=== PATIENT | female | born 1980 | race Caucasian/White ===

== ENCOUNTER → 2016-06-25 | Outpatient (REF) | payer OTHER ==
[~2016-06-25] MED LIST: DICL10TA PO; FERR325T3 PO; IBUP80TA PO; PERCOCET PO
== END ==
LOC: M LAB REF 10:43
PROVIDERS: ATTEND Physician Assistant
DX: J02.9 Acute pharyngitis, unspecified (principal)

== ENCOUNTER 2016-09-27 17:18 | Emergency (ER) | payer OTHER ==
[~2016-09-27] VITALS: Ht 157.5 cm; Wt 59.1 kg
--- NOTE | 2016-09-27 19:10 | REPUSA ---
CLINICAL HISTORY: pain. COMMENTS: Real time sonography with duplex doppler of the left lower extremity was performed with attention to the major deep venous structures. Evaluation reveals the left common femoral, superficial femoral and popliteal veins to be completely compressible without intraluminal thrombus. There is normal spontaneous phasic flow and augmentation. The greater saphenous/common femoral vein junction is patent. IMPRESSION: No evidence of DVT in left lower extremity.. Thank you for your kind referral of this patient.
[2016-09-27 19:21] VITALS: BP 123/82
== END 2016-09-27 19:38 | disposition home or self-care (01) ==
LOC: M ED 17:18
DX: M79.662 Pain in left lower leg (principal); F41.9 Anxiety disorder, unspecified; F17.200 Nicotine dependence, unspecified, uncomplicated; Z88.1 Allergy status to other antibiotic agents

== ENCOUNTER 2017-01-11 08:22 | Emergency (ER) | payer OTHER ==
[~2017-01-11] VITALS: Ht 157.5 cm; Wt 61.4 kg
[2017-01-11 11:20] LABS: BASO % 0.4 % (0.0-1.0); EOS # 0.1 10^3/uL (0.0-0.50); IMMATURE GRANULOCYTE % 0.4 % (0-0); LYMPH # 1.7 10^3/uL (1.5-4.5); LYMPH % 16.3 % (24.0-44.0); MEAN CORPUSCULAR HEMOGLOBIN 31.6 pg (27.0-33.0); MEAN CORPUSCULAR VOLUME 92.9 fl (80.0-96.0); MONO # 0.3 10^3/uL (0.0-0.8); MONO % 3.1 % (0.0-5.0); NEUTROPHILS # 8.4 10^3/uL (1.8-7.7); NEUTROPHILS % 78.8 % (36.0-66.0); PLATELET COUNT, AUTOMATED 301 10^3/uL (150-450); RED CELL DISTRIBUTION WIDTH 12.7 % (11.5-14.5); WHITE BLOOD COUNT 10.7 10^3/uL (4.0-10.0)
[2017-01-11 11:48] LABS: CONTROL LINE HCG INT CTR LINE PRESENT
[2017-01-11 11:59] LABS: ALBUMIN 3.8 GM/DL (3.2-5.2); ALBUMIN/GLOBULIN RATIO 1.09 (1.00-1.93); ALKALINE PHOSPHATASE 54 U/L (45-117); ALT/SGPT 15 U/L (12-78); ANION GAP 5 MEQ/L (8-16); AST/SGOT 12 U/L (7-37); BILIRUBIN,DIRECT 0.1 MG/DL (0.0-0.2); BILIRUBIN,TOTAL 0.4 MG/DL (0.2-1.0); BLOOD UREA NITROGEN 14 MG/DL (7-18); CALCIUM LEVEL 8.8 MG/DL (8.5-10.1); CARBON DIOXIDE LEVEL 27 MEQ/L (21-32); CHLORIDE LEVEL 109 MEQ/L (98-107); CREATININE FOR GFR 0.92 MG/DL (0.55-1.02); GLOMERULAR FILTRATION RATE > 60.0 (>60); GLUCOSE, FASTING 89 MG/DL (70-105); POTASSIUM SERUM 4.1 MEQ/L (3.5-5.1); SODIUM LEVEL 141 MEQ/L (136-145); T UPTAKE 33 % (30-39); TOTAL PROTEIN 7.3 GM/DL (6.4-8.2)
[2017-01-11 12:04] LABS: THYROXINE (T4) 9.4 UG/DL (4.5-12.0)
[2017-01-11 12:29] VITALS: BP 113/66
--- NOTE | 2017-01-12 05:40 | ECGEPIP ---
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
== END 2017-01-11 12:30 | disposition home or self-care (01) ==
LOC: M ED 08:22
DX: J20.9 Acute bronchitis, unspecified (principal); Z72.0 Tobacco use

== ENCOUNTER → 2017-04-22 | Outpatient (CLI) | payer OTHER ==
[~2017-04-22] MED LIST changes: -DICL10TA PO; -FERR325T3 PO; -IBUP80TA PO; +ISOVUE-370 76% 100ML VIAL (Q9967) As Ordered; -PERCOCET PO
== END ==
LOC: M RAD 15:01
DX: R91.8 Other nonspecific abnormal finding of lung field (principal)
CPT/HCPCS: Q9967

== ENCOUNTER → 2017-06-22 | Outpatient (CLI) | payer OTHER ==
[~2017-06-22] MED LIST changes: -ISOVUE-370 76% 100ML VIAL (Q9967) As Ordered; +METHACHOLINE KIT (J7674) INH
== END ==
LOC: M CARPUL 13:22
DX: R06.02 Shortness of breath (principal)
CPT/HCPCS: J7674

== ENCOUNTER 2017-10-24 07:58 | Emergency (ER) | payer OTHER ==
[2017-10-24 09:37] LABS: BASO % 0.6 % (0.0-1.0); EOS # 0.2 10^3/uL (0.0-0.50); EOS % 3.5 % (0.0-3.0); HEMATOCRIT 40.1 % (36.0-47.0); HEMOGLOBIN 13.7 g/dl (12.0-15.5); IMMATURE GRANULOCYTE % 0.4 % (0-3.0); LYMPH # 1.4 10^3/uL (1.5-4.5); LYMPH % 26.6 % (24.0-44.0); MEAN CORPUSCULAR HEMOGLOBIN 32.2 pg (27.0-33.0); MEAN CORPUSCULAR HGB CONC 34.2 g/dl (32.0-36.5); MEAN CORPUSCULAR VOLUME 94.4 fl (80.0-96.0); MONO # 0.3 10^3/uL (0.0-0.8); MONO % 5.6 % (0.0-5.0); NEUTROPHILS # 3.4 10^3/uL (1.8-7.7); NEUTROPHILS % 63.3 % (36.0-66.0); PLATELET COUNT, AUTOMATED 245 10^3/uL (150-450); RED BLOOD COUNT 4.25 10^6/uL (4.00-5.40); RED CELL DISTRIBUTION WIDTH 12.2 % (11.5-14.5); WHITE BLOOD COUNT 5.4 10^3/uL (4.0-10.0)
[2017-10-24 10:01] LABS: ANION GAP 5 MEQ/L (8-16); BLOOD UREA NITROGEN 13 MG/DL (7-18); CALCIUM LEVEL 8.5 MG/DL (8.5-10.1); CARBON DIOXIDE LEVEL 27 MEQ/L (21-32); CHLORIDE LEVEL 111 MEQ/L (98-107); CPK CREATINE PHOSPHOKINASE 40 U/L (26-192); CREATININE FOR GFR 0.98 MG/DL (0.55-1.30); GLOMERULAR FILTRATION RATE > 60.0 (>60); GLUCOSE, FASTING 91 MG/DL (70-100); SODIUM LEVEL 143 MEQ/L (136-145); TROPONIN I < 0.02 NG/ML (< 0.10)
[2017-10-24 10:07] LABS: CK-MB VALUE MASS 1.3 NG/ML (<3.6); HCG, SERUM QUANTITATIVE < 1.0 MIU/ML; MB/CK RELATIVE INDEX 3.25 (< OR =4); THYROID STIMULATING HORMONE 0.901 uIU/ML (0.358-3.740)
[2017-10-24 10:23] LABS: D-DIMER QUANT < 270.0 ng/ml (<500)
== END 2017-10-24 11:31 | disposition home or self-care (01) ==
LOC: M ED 07:58
DX: R07.9 Chest pain, unspecified (principal)
CPT/HCPCS: 71046

== ENCOUNTER 2017-11-05 14:01 | Emergency (ER) | payer OTHER ==
[2017-11-05 14:50] LABS: BASO # 0.1 10^3/uL (0.0-0.2); BASO % 0.7 % (0.0-1.0); EOS # 0.3 10^3/uL (0.0-0.50); EOS % 3.6 % (0.0-3.0); HEMATOCRIT 41.5 % (36.0-47.0); IMMATURE GRANULOCYTE % 0.6 % (0-3.0); LYMPH # 2.1 10^3/uL (1.5-4.5); LYMPH % 28.9 % (24.0-44.0); MEAN CORPUSCULAR HGB CONC 33.7 g/dl (32.0-36.5); MONO # 0.4 10^3/uL (0.0-0.8); MONO % 4.9 % (0.0-5.0); NEUTROPHILS # 4.4 10^3/uL (1.8-7.7); NEUTROPHILS % 61.3 % (36.0-66.0); PLATELET COUNT, AUTOMATED 258 10^3/uL (150-450); RED BLOOD COUNT 4.37 10^6/uL (4.00-5.40); RED CELL DISTRIBUTION WIDTH 12.6 % (11.5-14.5); WHITE BLOOD COUNT 7.2 10^3/uL (4.0-10.0)
[2017-11-05 14:59] LABS: ANION GAP 5 MEQ/L (8-16); BLOOD UREA NITROGEN 13 MG/DL (7-18); CALCIUM LEVEL 8.6 MG/DL (8.5-10.1); CARBON DIOXIDE LEVEL 26 MEQ/L (21-32); CHLORIDE LEVEL 109 MEQ/L (98-107); CPK CREATINE PHOSPHOKINASE 52 U/L (26-192); CREATININE FOR GFR 0.95 MG/DL (0.55-1.30); GLOMERULAR FILTRATION RATE > 60.0 (>60); GLUCOSE, FASTING 113 MG/DL (70-100); MB/CK RELATIVE INDEX 2.31 (< OR =4); POTASSIUM SERUM 3.8 MEQ/L (3.5-5.1); SODIUM LEVEL 140 MEQ/L (136-145); TROPONIN I < 0.02 NG/ML (< 0.10)
[2017-11-05] MEDS ORDERED: ISOVUE-370 76% 100ML VIAL (Q9967) As Ordered (15:14)
[2017-11-05 15:26] LABS: C REACTIVE PROTEIN QUANTITATIV < 0.30 MG/DL (0.00-0.30)
[2017-11-05 15:49] LABS: ERYTHROCYTE SEDIMENTATION RATE 2 mm/hr (0-20)
[2017-11-05] MEDS: KETOROLAC 30 MG/ML VIAL (J1885) IV (17:45)
== END 2017-11-05 17:55 | disposition home or self-care (01) ==
LOC: M ED 14:01
DX: R07.89 Other chest pain (principal); R00.0 Tachycardia, unspecified; I49.3 Ventricular premature depolarization; J45.909 Unspecified asthma, uncomplicated; Z88.1 Allergy status to other antibiotic agents; F17.200 Nicotine dependence, unspecified, uncomplicated; Z91.013 Allergy to seafood; Z79.899 Other long term (current) drug therapy; Z79.2 Long term (current) use of antibiotics; Z79.51 Long term (current) use of inhaled steroids
CPT/HCPCS: Q9967

== ENCOUNTER → 2018-03-17 | Outpatient (CLI) | payer OTHER ==
[~2018-03-17] MED LIST changes: +AMOX875T; +ARNU1INH; +DICL10TA PO; +FERR325T3 PO; +IBUP-1114 PO; +IBUP80TA PO; -METHACHOLINE KIT (J7674) INH; +PERCOCET PO; +VENTAER
--- NOTE | 2018-03-17 15:16 | REP ---
FLAT AND UPRIGHT, PA CHEST, THREE VIEWS: HISTORY: Pain. COMPARISON: 11/05/2017 Air is present in small and large intestine. There are no air fluid levels or dilated loops of intestine. There is no pneumoperitoneum. A calcified granuloma is present in the left lung. The right lung is clear. IMPRESSION: Nonspecific bowel gas pattern. Electronically Signed by Reagan Franks MD 03/17/2018 03:18 P
== END ==
LOC: M WUC 11:47
PROVIDERS: ATTEND Internal Medicine
DX: J98.4 Other disorders of lung (principal); R07.89 Other chest pain; R10.9 Unspecified abdominal pain

== ENCOUNTER → 2018-04-14 | Outpatient (CLI) | payer OTHER ==
--- NOTE | 2018-04-14 11:01 | REP ---
LEFT LOWER EXTREMITY DOPPLER VENOUS ULTRASOUND: 04/14/2018. Clinical history: Pain left lower leg, evaluate for DVT. Comparison: 11/05/2017. Technique: The deep venous system of the left lower extremity is evaluated with villeda scale imaging, compression ultrasound, color imaging and duplex Doppler interrogation. Examination from the groin through the popliteal fossa into the proximal calf. Findings: There is full compressibility from the common femoral vein in the inguinal region through the popliteal vein. Color imaging confirms patency throughout the course of the deep venous system. There is respiratory variation and augmented flow at all levels. Impression: 1. No Doppler venous ultrasound evidence of DVT in the left lower extremity. Electronically Signed by Amaury Ferrari MD 04/14/2018 10:52 A
== END ==
LOC: M RAD 10:09
PROVIDERS: ATTEND Physician Assistant
DX: M79.662 Pain in left lower leg (principal)

== ENCOUNTER → 2018-09-01 | Outpatient (REF) | payer OTHER ==
[~2018-09-01] MED LIST changes: +BUSP10TA
[2018-09-01 13:27] LABS: BASO % 0.6 % (0.0-1.0); EOS # 0.2 10^3/uL (0.0-0.50); EOS % 3.6 % (0.0-3.0); HEMATOCRIT 44.8 % (36.0-47.0); HEMOGLOBIN 14.9 g/dl (12.0-15.5); LYMPH # 1.6 10^3/uL (1.5-4.5); LYMPH % 24.4 % (24.0-44.0); MEAN CORPUSCULAR HEMOGLOBIN 31.2 pg (27.0-33.0); MEAN CORPUSCULAR HGB CONC 33.3 g/dl (32.0-36.5); MEAN CORPUSCULAR VOLUME 93.9 fl (80.0-96.0); MONO # 0.4 10^3/uL (0.0-0.8); MONO % 5.9 % (0.0-5.0); NEUTROPHILS # 4.3 10^3/uL (1.8-7.7); NEUTROPHILS % 65.2 % (36.0-66.0); PLATELET COUNT, AUTOMATED 280 10^3/uL (150-450); RED BLOOD COUNT 4.77 10^6/uL (4.00-5.40); WHITE BLOOD COUNT 6.6 10^3/uL (4.0-10.0)
[2018-09-01 13:47] LABS: ALBUMIN 4.3 GM/DL (3.2-5.2); BILIRUBIN,TOTAL 0.4 MG/DL (0.2-1.0); CALCIUM LEVEL 9.2 MG/DL (8.5-10.1); CREATININE FOR GFR 1.13 MG/DL (0.55-1.30); FREE T4 0.98 NG/DL (0.76-1.46); GLOMERULAR FILTRATION RATE 56.8 (>58); POTASSIUM SERUM 4.3 MEQ/L (3.5-5.1); THYROID STIMULATING HORMONE 1.15 uIU/ML (0.358-3.740); TOTAL PROTEIN 7.4 GM/DL (6.4-8.2)
[2018-09-03 00:07] LABS: EBV AB TO NUCLEAR ANTIGEN 22.4 U/mL (0.0-17.9); EBV VIRAL CAPSID AG IgG >600.0 U/mL (0.0-17.9); EBV VIRAL CAPSID AG IgM <36.0 U/mL (0.0-35.9)
== END ==
LOC: M LAB REF 12:22
PROVIDERS: ATTEND Physician Assistant
DX: J02.9 Acute pharyngitis, unspecified (principal); R53.83 Other fatigue

== ENCOUNTER 2018-11-23 14:02 | Emergency (ER) | payer OTHER ==
[~2018-11-23] VITALS: Ht 157.5 cm; Wt 63.6 kg
[~2018-11-23 14:02] MED LIST changes: -BUSP10TA
[2018-11-23] MEDS ORDERED: BUSP10TA (14:11)
--- NOTE | 2018-11-23 17:35 | REP ---
Chest x-ray: Two views. History: "DB". Comparison chest x-ray March 17, 2018 and November 05, 2017. Findings: There is a stable granulomatous calcification in the left mid lung zone. No infiltrate is seen. Pleural angles are sharp. Heart size is normal. EKG electrodes are seen. Nipple silhouettes project at the bases bilaterally. There is a 6 mm nodular opacity projecting in the left lung apex which is not definitely apparent previously. I cannot exclude a pulmonary nodule. Exam is otherwise unremarkable. Impression: 6 mm nodular neodensity left lung apex, question pulmonary nodule. Old granuloma left mid lung field. Otherwise no active disease. Electronically Signed by Jose Pollack MD 11/24/2018 08:00 A
[2018-11-23 17:49] LABS: BASO % 0.5 % (0.0-1.0); EOS # 0.2 10^3/uL (0.0-0.5); EOS % 2.3 % (0.0-3.0); HEMATOCRIT 38.5 % (36.0-47.0); HEMOGLOBIN 13.1 g/dl (12.0-15.5); MEAN CORPUSCULAR HEMOGLOBIN 32.3 pg (27.0-33.0); MEAN CORPUSCULAR VOLUME 95.1 fl (80.0-96.0); MONO # 0.6 10^3/uL (0.0-0.8); MONO % 7.7 % (0.0-5.0); NEUTROPHILS # 4.5 10^3/uL (1.5-8.5); NEUTROPHILS % 61.2 % (36.0-66.0); PLATELET COUNT, AUTOMATED 230 10^3/uL (150-450); RED BLOOD COUNT 4.05 10^6/uL (4.00-5.40); WHITE BLOOD COUNT 7.3 10^3/uL (4.0-10.0)
[2018-11-23 18:11] LABS: BLOOD UREA NITROGEN 13 MG/DL (7-18); CALCIUM LEVEL 8.6 MG/DL (8.5-10.1); CARBON DIOXIDE LEVEL 25 MEQ/L (21-32); CHLORIDE LEVEL 110 MEQ/L (98-107); CK-MB VALUE MASS 1.1 NG/ML (<3.6); CPK CREATINE PHOSPHOKINASE 42 U/L (26-192); CREATININE FOR GFR 1.02 MG/DL (0.55-1.30); GLOMERULAR FILTRATION RATE > 60.0 (>58); GLUCOSE, FASTING 105 MG/DL (70-100); MB/CK RELATIVE INDEX 2.62 (< OR =4); POTASSIUM SERUM 3.8 MEQ/L (3.5-5.1); SODIUM LEVEL 142 MEQ/L (136-145); TROPONIN I < 0.02 NG/ML (< 0.10)
[2018-11-23 18:34] LABS: HCG, SERUM QUALITATIVE NEGATIVE (NEGATIVE)
[2018-11-23 20:00] VITALS: BP 12/80
--- NOTE | 2018-11-23 20:48 | ECGEPIP ---
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
== END 2018-11-23 20:10 | disposition home or self-care (01) ==
LOC: M ED 14:02
DX: J45.901 Unspecified asthma with (acute) exacerbation (principal); R91.8 Other nonspecific abnormal finding of lung field; R94.31 Abnormal electrocardiogram [ECG] [EKG]; Z88.1 Allergy status to other antibiotic agents; Z91.013 Allergy to seafood; Z79.51 Long term (current) use of inhaled steroids; Z79.899 Other long term (current) drug therapy

== ENCOUNTER 2019-05-06 13:26 | Emergency (ER) | payer OTHER ==
[~2019-05-06] VITALS: Ht 157.5 cm; Wt 63.0 kg
[~2019-05-06 13:26] MED LIST changes: +BUSP10TA
[2019-05-06] MEDS ORDERED: ALPRAZolam 0.5 MG TAB PO ONE (14:45)
[2019-05-06 15:02] LABS: BASO % 0.4 % (0.0-1.0); EOS # 0.1 10^3/uL (0.0-0.5); EOS % 1.7 % (0.0-3.0); HEMATOCRIT 41.4 % (36.0-47.0); HEMOGLOBIN 14.1 g/dl (12.0-15.5); LYMPH % 13.3 % (24.0-44.0); MEAN CORPUSCULAR HEMOGLOBIN 31.3 pg (27.0-33.0); MEAN CORPUSCULAR HGB CONC 34.1 g/dl (32.0-36.5); MEAN CORPUSCULAR VOLUME 91.8 fl (80.0-96.0); MONO # 0.7 10^3/uL (0.0-0.8); MONO % 9.1 % (0.0-5.0); NEUTROPHILS # 5.6 10^3/uL (1.5-8.5); NEUTROPHILS % 75.1 % (36.0-66.0); PLATELET COUNT, AUTOMATED 250 10^3/uL (150-450); RED BLOOD COUNT 4.51 10^6/uL (4.00-5.40); WHITE BLOOD COUNT 7.5 10^3/uL (4.0-10.0)
[2019-05-06] MEDS ORDERED: ONDANSETRON 4 MG ORAL DISINTEGRATING TAB (Q0162 PER 1MG) PO ONE (15:15)
[2019-05-06 15:25] LABS: HCG, SERUM QUALITATIVE NEGATIVE (NEGATIVE)
[2019-05-06 15:33] LABS: ALBUMIN 3.6 GM/DL (3.2-5.2); ALT/SGPT 12 U/L (12-78); BILIRUBIN,DIRECT < 0.1 MG/DL (0.0-0.2); BILIRUBIN,TOTAL 0.3 MG/DL (0.2-1.0); BLOOD UREA NITROGEN 10 MG/DL (7-18); CALCIUM LEVEL 8.5 MG/DL (8.5-10.1); CARBON DIOXIDE LEVEL 24 MEQ/L (21-32); CHLORIDE LEVEL 110 MEQ/L (98-107); CK-MB VALUE MASS < 1.0 NG/ML (<3.6); CPK CREATINE PHOSPHOKINASE 42 U/L (26-192); GLOMERULAR FILTRATION RATE 58.6 (>58); GLUCOSE, FASTING 94 MG/DL (70-100); LIPASE 94 U/L (73-393); MB/CK RELATIVE INDEX 2.38 (< OR =4); SODIUM LEVEL 141 MEQ/L (136-145); THYROID STIMULATING HORMONE 0.511 uIU/ML (0.358-3.740); TOTAL PROTEIN 6.8 GM/DL (6.4-8.2); TROPONIN I < 0.02 NG/ML (< 0.10)
[2019-05-06] MEDS ORDERED: XANA0.5T PO (17:25)
[2019-05-06] MEDS ORDERED: FLON1SPR NARES (17:25)
--- NOTE | 2019-05-06 17:30 | ECGEPIP ---
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
[2019-05-06 17:53] VITALS: BP 105/59
--- NOTE | 2019-05-07 11:01 | REP ---
REASON: Chest pain. COMPARISON: 11/23/2018 TWO-VIEW CHEST: FINDINGS: The superior mediastinal structures are midline. The cardiac silhouette is unremarkable in size, shape, and position. The diaphragmatic surfaces of the lungs are regular, and the costophrenic angles are clear. The pulmonary morales are clear. The imaged osseous structures are intact. IMPRESSION: There is no acute cardiopulmonary disease. No change from the prior exam. There is an incidental calcified granuloma in the left lung. Electronically Signed by Arcadio Becerra DO 05/07/2019 12:19 P
== END 2019-05-06 17:56 | disposition home or self-care (01) ==
LOC: M ED 13:26
DX: H65.01 Acute serous otitis media, right ear (principal); F43.0 Acute stress reaction; R91.8 Other nonspecific abnormal finding of lung field; R11.2 Nausea with vomiting, unspecified; F17.210 Nicotine dependence, cigarettes, uncomplicated; Z88.1 Allergy status to other antibiotic agents; Z91.013 Allergy to seafood; Z79.51 Long term (current) use of inhaled steroids; Z79.899 Other long term (current) drug therapy
CPT/HCPCS: 36415; 71046; 80048; 80076; 82550; 82553; 83690; 84443; 84484; 84703; 85025; 93005; 99284; Q0162

== ENCOUNTER 2019-12-24 07:50 | Emergency (ER) | payer OTHER ==
[~2019-12-24] VITALS: Ht 157.5 cm; Wt 63.3 kg
[~2019-12-24 07:50] MED LIST changes: +FLON1SPR NARES; +XANA0.5T PO
[2019-12-24] MEDS ORDERED: GI COCKTAIL 50ML BTL(HYOSCYAMINE/MAALOX/LIDOCAINE VISCOUS)(1:3:1) PO ONE (08:15)
[2019-12-24 08:19] LABS: BASO # 0.1 10^3/uL (0.0-0.2); BASO % 0.6 % (0.0-1.0); EOS # 0.3 10^3/uL (0.0-0.5); EOS % 3.3 % (0.0-3.0); HEMATOCRIT 43.9 % (36.0-47.0); LYMPH % 25.1 % (24.0-44.0); MEAN CORPUSCULAR HEMOGLOBIN 30.2 pg (27.0-33.0); MEAN CORPUSCULAR HGB CONC 31.9 g/dl (32.0-36.5); MEAN CORPUSCULAR VOLUME 94.6 fl (80.0-96.0); MONO # 0.4 10^3/uL (0.0-0.8); MONO % 5.5 % (0.0-5.0); NEUTROPHILS # 5.1 10^3/uL (1.5-8.5); NEUTROPHILS % 65.1 % (36.0-66.0); PLATELET COUNT, AUTOMATED 296 10^3/uL (150-450); RED BLOOD COUNT 4.64 10^6/uL (4.00-5.40); WHITE BLOOD COUNT 7.8 10^3/uL (4.0-10.0)
[2019-12-24 08:31] LABS: INR 1.02; PROTHROMBIN TIME 13.6 SECONDS (12.5-14.3)
[2019-12-24 08:32] LABS: PARTIAL THROMBOPLASTIN TIME 27.9 SECONDS (24.2-38.5)
[2019-12-24 08:36] LABS: D-DIMER QUANT < 270 ng/ml (<500)
[2019-12-24 08:40] LABS: HCG, SERUM QUALITATIVE NEGATIVE (NEGATIVE)
[2019-12-24 08:49] LABS: ALT/SGPT 15 U/L (12-78); BILIRUBIN,DIRECT 0.1 MG/DL (0.0-0.2); BILIRUBIN,TOTAL 0.5 MG/DL (0.2-1.0); BLOOD UREA NITROGEN 12 MG/DL (7-18); CALCIUM LEVEL 8.8 MG/DL (8.5-10.1); CARBON DIOXIDE LEVEL 27 MEQ/L (21-32); CHLORIDE LEVEL 109 MEQ/L (98-107); CREATININE FOR GFR 1.11 MG/DL (0.55-1.30); FREE T4 0.96 NG/DL (0.76-1.46); GLOMERULAR FILTRATION RATE 57.7 (>58); GLUCOSE, FASTING 96 MG/DL (70-100); LIPASE 129 U/L (73-393); NT-PRO BNP 84 PG/ML (<125); POTASSIUM SERUM 3.9 MEQ/L (3.5-5.1); SODIUM LEVEL 141 MEQ/L (136-145); TOTAL PROTEIN 7.2 GM/DL (6.4-8.2)
--- NOTE | 2019-12-24 09:15 | REP ---
INDICATION: CHEST PAIN. COMPARISON: Comparison chest x-ray May 06, 2019.. TECHNIQUE: Portable AP sitting radiograph. FINDINGS: Monitoring electrodes overlie the chest. The lungs are well inflated and clear. The pleural angles are sharp. Heart size is normal. There is a granulomatous calcification again noted projecting in the left mid lung field. No significant bony abnormality is seen. IMPRESSION: No active disease. Old granuloma on the left. <Electronically signed by Bashir Pollack > 12/24/19 0914
[2019-12-24] MEDS ORDERED: KETOROLAC 30 MG/ML 1ML VIAL IV ONE (09:45)
[2019-12-24] MEDS ORDERED: SUCRALFATE 1 GM TAB PO ONE (09:45)
[2019-12-24] MEDS ORDERED: PRIL20TA2 PO (11:25)
[2019-12-24] MEDS ORDERED: SUCR1TA PO (11:25)
[2019-12-24 11:30] VITALS: BP 111/57
--- NOTE | 2019-12-25 07:39 | ECGEPIP ---
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
--- NOTE | 2019-12-25 07:47 | ECGEPIP ---
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
== END 2019-12-24 11:39 | disposition home or self-care (01) ==
LOC: M ED 07:50
DX: R07.89 Other chest pain (principal); K21.9 Gastro-esophageal reflux disease without esophagitis; R94.31 Abnormal electrocardiogram [ECG] [EKG]; J45.909 Unspecified asthma, uncomplicated; Z88.1 Allergy status to other antibiotic agents; Z91.013 Allergy to seafood; F17.200 Nicotine dependence, unspecified, uncomplicated; Z79.899 Other long term (current) drug therapy
CPT/HCPCS: 71045; 80048; 80076; 83690; 83880; 84439; 84443; 84484; 84703; 85025; 85379; 85610; 85730; 93005; 93041; 94760; 96374; 99285; J1885

== ENCOUNTER → 2020-03-26 | Outpatient (REF) | payer OTHER ==
[~2020-03-26] MED LIST changes: +PRIL20TA2 PO; +SUCR1TA PO
== END ==
LOC: M LAB REF 17:24
PROVIDERS: ATTEND Physician Assistant
DX: D23.4 Other benign neoplasm of skin of scalp and neck (principal)

== ENCOUNTER 2020-04-12 11:20 | Emergency (ER) | payer OTHER ==
[~2020-04-12] VITALS: Ht 157.5 cm; Wt 54.5 kg
--- OUTSIDE RECORDS SUMMARY | 2020-04-12 11:26 | CCD ---
Continuity of Care Document (CCD) Created on: 03/13/2020 Emily Blank External Reference #: [id number] : 1980 Sex: Female Author Author Emily PAYNE MD Organization Unknown Address [address] [address] Phone [phone] Care Team Providers Care Junior Electrical Engineer Name Role Phone Duke Jean-Baptiste M.D. AUTM [phone] Carlos A Villa AUTM [phone] AUTM Unavailable Problems Active Problems Provider Date Dyspnea Edvin Saab MD Onset: 02/07/2015 Social History Type Date Description Comments Sex Unknown ETOH Use Denies alcohol use Tobacco Use Start: 02/22/99 Patient is a current smoker, smo kes every day 1/2 ppd Recreational Drug Use Denies Drug Use Smoking Status Reviewed: 03/13/20 Patient is a current smoker, smokes every day 1/2 ppd Allergies, Adverse Reactions, Alerts Active Allergies Reaction Severity Comments Date Shellfish-Derived Products Anaphylaxis 1 04/10/2014 Tetracycline Urticaria 02/07/2015 Medications Active Medications SIG Qnty Indications Ordering Provide r Date Xopenex HFA 45mcg/Act Aerosol 2 puffs four times a day as needed 45gm J45.30 Edvin Saab MD 2018 Arnuity Ellipta 100mcg/Act Aerosol 1 puff every day 90units Edvin Saab MD 06/30/2017 Buspirone HCL 15mg Tablets 1 by mouth twice a day Unknown Omeprazole 20mg Capsules DR 1 by mouth every day Unknown Levalbuterol HCL 0.63mg/3ML Nebuli zer 1 vial nebulized three times a day as needed Unkno wn Immunizations CPT Code Status Date Vaccine Lot # [id number] Given 12/21/2019 Afluria, Quadrivalent, 0.5ml , [facility]# [id number] Vital Signs Date Vital Result Comment 03/13/2020 9:33am Height 61 inches 5'1" Weight 135.00 lb BMI (Body Mass Index) 25.5 kg/m2 [place] Body Weight 105 lb Weight 61.236 kg BSA (Body Surface Area) 1.60 m2 01/30/2020 12:45pm BP Systolic 104 mmHg BP Diastolic 82 mmHg Heart Rate 78 /min O2 % BldC Oximetry 98 % Height 61 inches 5'1" Weight 142.00 lb BMI (Body Mass Index) 26.8 kg/m2 [place] Body Weight 105 lb Weight 64.411 kg BSA (Body Surface Area) 1.63 m2 Results Test Acquired Date Facility Test Result H/L Range Note FVL/Felice 01/30/2020 [facility] SEE IMAGE FVC-Pred 3.33 L FVC-Pre 3.94 L FVC-%Pred-Pre 118 L FVC-LLN 2.69 L Fev1-Pred 2.72 L Fev1-Pre 3.11 L Fev1-%Pred-Pre 114 L Fev1-LLN 2.19 L Fev6-Pred 3.27 L Fev6-Pre 3.94 L Fev6-%Pred-Pre 120 L Fev6-LLN 2.65 L Gqt9rta-Qhox 82 % Qkz8hbc-Axe 79 % Sic9kbk-%Pred-Pre 96 % Wmy4lid-AZF 72 % Jqy4fix-Qlqx 98 % Zde3baz-Vga 100 % Qdi5nom-%Pred-Pre 101 % FEFMax-Pred 6.51 L/E/sec FEFMax-Pre 5.00 L/E/sec FEFMax-%Pred-Pre 76 L/E/sec FEFMax-LLN 4.95 L/E/sec Mye8131-Rert 2.93 L/E/sec Jpz4082-Gly 2.92 L/E/sec Jfn1619-%Pred-Pre 99 L/E/sec Pcf9132-VWJ 1.80 L/E/sec ExpTime-Pre 6.74 sec Fvp5qtn8-Bcya 84 % Fhd2vvp3-Bge 79 % Cjo6jfl5-%Pred-Pre 94 % Dwg2nnz5-LZW 75 % Procedures Date Code Description Status 01/30/2020 55563 Spirometry Completed Medical Devices Description No Information Available Encounters Type Date Location Provider Dx Diagnosis Office Visit 01/30/2020 2:15p [facility] Lawrenc mary Saab MD J45.30 Mild persistent asthma, uncomplicated F17.218 Nicotine dependence, cigaret aseal, w oth disorders Assessments Date Code Description Provider 03/13/2020 K21.9 Gastro-esophageal reflux disease without esophagitis Lisandro Payne MD 03/13/2020 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 Lisandro Payne MD 03/13/2020 K14.9 Disease of tongue, unspecified T nara Payne MD 01/30/2020 J45.30 Mild persistent asthma, uncompli cated Edvin Saab MD 01/30/2020 F17.218 Nicotine dependence, cigarettes, with other nicotine-induced Edvin Saab MD Plan of Treatment Future Appointment(s):* 07/30/2020 3:00 pm - Edvin Saab MD at [facility] 03/13/2020 - Lisandro Payne MD* K21.9 Gastro-esophageal reflux disease without esophagitis * 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
--- OUTSIDE RECORDS SUMMARY | 2020-04-12 11:26 | CCD | Continuity of Care Document ---
Author Author Emily JEAN-BAPTISTE M.D. Organization Unknown Address [address] [address] Phone [phone] Problems Active Problems Provider Date Panic disorder without agoraphobia Shawna Schuler [facility]- O nset: 03/12/2011 Anxiety state [facility], JAYCEE-C Onset: 2012 Asthma Misty Dominguez PA Onset: 09/06 Social History Type Date Description Comments Sex Unknown Tobacco Use Start: Unknown Current Cigarette Smoker 1/2 Pac k Daily ETOH Use Denies alcohol use Recreational Drug Use Denies Drug Use Tobacco Use Start: Unknown Patient is a current smoker, smo kes every day Allergies, Adverse Reactions, Alerts Active Allergies Reaction Severity Comments Date Tetracycline 07/25/2013 Medications Active Medications SIG Qnty Indications Ordering Provide r Date Omeprazole 20mg Tablets DR 1 by mouth every morning 90tabs Mathew Morgan D.O., FAAFP Buspirone HCL 15mg Tablets 1 by mouth every 12 hours with half tab at noontime 45tabs Duke Cook M.D. 10/20/2019 [facility] 50% Pads apply to rectal area bid prn 50units Mathew Morgan D.O., FA AFP 2019 Ondansetron HCL 4mg Tablets 1 tab by mouth every four to six hours as needed for nausea 30tabs Nisreen Garg FNP-BC 05/08/2019 Arnuity Ellipta 100mcg/Act Aerosol as directed Unknown Levalbuterol Tartrate 45mcg/Act Ae rosol inhale 2 puffs by mouth every 4-6 hour as needed for shortness of breath Unknown Xanax 0.5mg Tablets 1 tab by mouth once a day as needed [id number] 30tabs F41.9 Duke Jean-Baptiste M.D. History Medications Omeprazole 20mg Capsules DR 1 by mouth every morning 90caps Mathew Morgan D.O., FAAFP - 02/19/[address] 1 cap by mouth once daily 90caps Mathew Morgan D.O., FAAFP 12/2019 - 02/19/2020 Medications Administered in Office Medication SIG Qnty Indications Ordering Provider Date Injection (SC)/(Im) Injection [facility] RPA-C 04/07/2013 Immunizations CPT Code Status Date Vaccine Lot # [id number] Given 10/31/2019 Influenza Virus Vaccine, Quadrivalent, Slit Virus, Im Use 3Y & Up [id number] Given 12/28/2018 Influenza Virus Vaccine, Quadrivalent, Slit Virus, Im Use 3Y & Up [id number] 90925 Given 02/05/2017 Influenza Virus Vaccine, Quadrivalent, Slit Virus, Im Use 3Y & Up [id number] 21230 Given 12/16/2015 Influenza Virus Vaccine, Quadrivalent, Slit Virus, Im Use 3Y & Up [id number] Vital Signs Date Vital Result Comment 04/05/2020 3:47pm BP Systolic 104 mmHg BP Diastolic 82 mmHg Body Temperature 97.0 F Heart Rate 95 /min Respiratory Rate 16 /min Height 62 inches 5'2" Weight 141.00 lb [place] Body Weight 110 lb BMI (Body Mass Index) 25.8 kg/m2 O2 % BldC Oximetry 98 % 02/19/2020 2:47pm BP Systolic 112 mmHg BP Diastolic 72 mmHg Body Temperature 98.1 F Heart Rate 97 /min Respiratory Rate 16 /min Height 62 inches 5'2" Weight 144.00 lb [place] Body Weight 110 lb BMI (Body Mass Index) 26.3 kg/m2 O2 % BldC Oximetry 97 % Results Test Acquired Date Facility Test Result H/L Range Note Laboratory test finding 12/24/2019 [facility] ([facility]) [phone] iSTAT Troponin 0.00 NG/ML Normal 0.00-0.08 Laboratory test finding 12/24/2019 [facility] (Interface) [phone] iSTAT Troponin 0.00 NG/ML Normal 0.00-0.08 CBC With Differential 12/24/2019 [facility]) [phone] White Blood Count 7.8 10 Normal 4.0-10.0 Red Blood Count 4.64 10 Normal 4.00-5.40 Hemoglobin 14.0 g/dL Normal 12.0-15.5 Hematocrit 43.9 % Normal 36.0-47.0 Mean Corpuscular Volume 94.6 fl Normal 80.0-96.0 Mean Corpuscular Hemoglobin 30.2 pg Normal 27.0-33.0 Mean Corpuscular HGB Conc 31.9 g/dL Low 32.0-36.5 Red Cell Distribution Width 12.5 % Normal 11.5-14.5 Platelet Count, Automated 296 10 Normal 150-450 Neutrophils % 65.1 % Normal 36.0-66.0 Lymph % 25.1 % Normal 24.0-44.0 Craven % 5.5 % High 0.0-5.0 Eos % 3.3 % High 0.0-3.0 Baso % 0.6 % Normal 0.0-1.0 Immature Granulocyte % 0.4 % Normal 0-3.0 Nucleated Red Blood Cell % 0.0 % Normal 0-0 Neutrophils # 5.1 10 Normal 1.5-8.5 Lymph # 2.0 10 Normal 1.5-5.0 Craven # 0.4 10 Normal 0.0-0.8 Eos # 0.3 10 Normal 0.0-0.5 Baso # 0.1 10 Normal 0.0-0.2 Prothrombin Time/Inr 12/24/2019 [facility] ( [facility]) [phone] Prothrombin Time 13.6 seconds Normal 12.5-14.3 Inr 1.02 Normal 1 Laboratory test finding 12/24/2019 [facility] (Interface) [phone] Partial Thromboplastin Time 27.9 seconds Normal 24 .2-38.5 D-Dimer Quant < 270 ng/ml Normal <500 Liver Profile 12/24/2019 [facility] [phone] Ast/Sgot 11 U/L Normal 7-37 Alt/SGPT 15 U/L Normal 12-78 Alkaline Phosphatase 60 U/L Normal 45-117 Bilirubin,Total 0.5 mg/dL Normal 0.2-1.0 Bilirubin,Direct 0.1 mg/dL Normal 0.0-0.2 Total Protein 7.2 GM/DL Normal 6.4-8.2 Albumin 4.0 GM/DL Normal 3.2-5.2 Albumin/Globulin Ratio 1.3 Normal 1.2-2.2 Basic Metabolic Profile 12/24/2019 [facility] (Interface) [phone] Glucose, Fasting 96 mg/dL Normal 70-100 Blood Urea Nitrogen 12 mg/dL Normal 7-18 Creatinine For GFR 1.11 mg/dL Normal 0.55-1.30 Glomerular Filtration Rate 57.7 Low >58 2 Sodium Level 141 mEq/L Normal 136-145 Potassium Serum 3.9 mEq/L Normal 3.5-5.1 Chloride Level 109 mEq/L High 98-107 Carbon Dioxide Level 27 mEq/L Normal 21-32 Anion Gap 5 mEq/L Low 8-16 Calcium Level 8.8 mg/dL Normal 8.5-10.1 Laboratory test finding 12/24/2019 [facility] (Interface) [phone] NT-Pro BNP 84 pg/mL Normal <125 Lipase 129 U/L Normal 73-393 Thyroid Stimulating Hormone 1.330 uIU/ML Normal 0.358-3.740 Free T4 0.96 ng/dL Normal 0.76-1.46 HCG Serum Qualitative NEGATIVE Normal Negative CBC 10/31/2019 [facility]house WBC 8.7 10E3/uL 4.1 - 10.9 3 RBC 4.50 10E6/uL 4.20 - 6.30 HGB 14.7 g/dL 12.0 - 18.0 HCT 42.1 % 37.0 - 51.0 MCV 93.6 fL 80.0 - 97.0 MCH 32.7 pg High 26.0 - 32.0 MCHC 34.9 g/dL 31.0 - 36.0 PLT 317 10E3/uL 140 - 440 RDW-CV 12.8 % 11.5 - 14.5 Lym% 26.5 % 10.0 - 58.5 Neut% 64.4 % 37.0 - 92.0 MXD% 9.1 % 0.1 - 24.0 Lym# 2.3 10E3/uL 0.6 - 4.1 Neut# 5.6 % 2.0 - 7.8 MXD# 0.8 10E3/uL 0.0 - 1.8 MPV 9.9 fL 9.0 - 13.0 1 THERAPUTIC HUMAN INR VALUES INDICATIONS NORMAL RANGES PROPHYLAXIS/TREATMENT OF: VENOUS THROMBOSIS 2.0-3.0 PULMONARY EMBOLISM 2.0-3.0 PREVENTION OF SYSTEMIC EMBOLISM FROM: TISSUE HEART VALVES 2.0-3.0 ACUTE MYOCARDIAL INFARCTION 2.0-3.0 VALVULAR HEART DISEASE 2.0-3.0 ATRIAL FIBRILLATION 2.0-3.0 MECHANICAL VALVES(HIGH RISK) 2.5-3.5 RECURRENT MYOCARDIAL INFARCTION 2.5-3.5 2 Units are mL/min/1.73 m2 Chronic Kidney Disease Staging per NKF: Stage I & II GFR >=60 Normal to Mildly Decreased Stage III GFR 30-59 Moderately Decreased Stage IV GFR 15-29 Severely Decreased Stage V GFR <15 Very Little GFR Left ESRD GFR <15 on NEEDLE PROCESS FELT GOODS SUPERVISOR 3 NORMAL RANGES Age WBC RBC HGB HCT MCV PLT Adult M 4.1-10.9 4.20-6.30 12.0-18.0 37.0-51.0 80-97 140-440 Adult F 4.1-10.9 4.04-5.48 12.0-18.0 37.0-51.0 80-97 140-440 0 -1 Yr 5.0-20.0 3.9-5.9 15-18 MV: 44 MV: 91 MV: 277 2-9 Yr. 6.0-17.0 3.8-5.4 11-13 MV: 37 MV: 78 MV: 300 10 Yrs. 5.0-13.0 3.8-5.4 12-15 MV: 39 MV: 80 MV: 250 NOTE: * FOR ADULT BLACK MALES AND FEMALES, NORMAL WBC IS 2.9-7.7 K/ML * FOR ADULT BLACK MALES AND FEMALES, NORMAL RBC,HGB, AND HCT IS 5% LESS SOURCE FOR DATA: [employer] 1800 OPERATION MANUAL( AUTOMATED BLOOD COUNTS AND DIFF.) APPENDIX B-3 Procedures Description No Information Available Medical Devices Description No Information Available Encounters Type Date Location Provider Dx Diagnosis Office Visit 04/05/2020 3:40p [facility] Duke Jean-Baptiste M. D. 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 04/05/2020 K21.9 Gastro-esophageal reflux disease without esophagitis Duke Jean-Baptiste M.D. 04/05/2020 J45.909 Unspecified asthma, uncomplicate d Duke Jean-Baptiste M.D. 02/19/2020 S10.14xA External constriction of part of throat, initial encounter Carlos A Villa, RPA 02/19/2020 D44.0 Neoplasm of uncertain behavior o f thyroid gland Carlos A Villa, RPA 01/03/2020 F41.9 Anxiety disorder, unspecified Ba gurinderfranklyn Misty Mayer, PA 01/03/2020 R12 Heartburn Joanfranklyn Ghassan [facility], PA 01/03/2020 R00.2 Palpitations Angelica Ghassan [facility], PA 10/31/2019 R07.0 Sore throat symptom Angelica Misty Mayer PA 10/31/2019 F41.9 Anxiety disorder, unspecified Ba clovercurtfranklyn Misty Mayer, PA 10/31/2019 R23.8 Other skin changes Angelica RYAN Smith 10/31/2019 Z23 Encounter for immunization Misty Mckeon, RYAN Plan of Treatment Future Appointment(s):* 10/04/2020 4:00 pm - Duke Jean-Baptiste M.D. at [facility] Functional Status Description No Information Available Mental Status Description No Information Available Referrals Refer to Dr Reason for Referral Status Appt Date Lisandro Payne M.D. Fullness in throat and sore tongue x 1 month. Sent 03/13/2020 [facility] [address] [address] [phone] [facility] eval and treat anxiety. Mendoza ing buspirone 15 mg one tab po tid. Has stressful job. Would like therapist to help her with her anxiety. Denies medication adjustment or changes at this time. Sent [address] [place], [place] [address] [phone] [facility] Dermatology eval and treat skin changes. Skin nodule under left breast, raised, brown in color, regular borders, has started to raise. skin nodule on the left lower leg on the anterior aspect raised, brown in color, regular border. Sent [address] [facility] [address] [place] [address] [phone]
--- OUTSIDE RECORDS SUMMARY | 2020-04-12 11:26 | CCD ---
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 ; Inflamed skin tag L91.8 and Neoplasm of uncertain behavior D48.9 IMMUNIZATIONS No Information SOCIAL HISTORY Tobacco Use: Social History Observation Description Date Details (start date - stop date) Current Smoker Sex Assigned At : Social History Observation Description Sex Assigned At Unknown Tobacco Use: Question Answer Notes Are you a: current smoker REASON FOR REFERRAL No Information VITAL SIGNS Weight 149 lbs Mar, Height 5'2 in Mar, BMI 29.10 kg/m2 Mar, Blood pressure systolic 126 mm Hg Mar, Blood pressure diastolic 76 mm Hg Mar, MEDICATIONS Medication SIG (Take, Route, Frequency, Duration) Notes Start Da te End Date Status Arnuity Ellipta 100 MCG/ACT INHALE ONE PUFF BY MOUTH E VERY DAY Inhalation for 90 Active BusPIRone HCl 15 MG TAKE ONE TABLET BY MOUTH FROILAN RY 12 HOURS WITH 1/2 TABLET AT NOON Oral for 18 Active Omeprazole 20 MG TAKE ONE CAPSULE BY MOUTH EVERY DAY Oral for 30 Active PROCEDURES from 1978 to 2020-04-01 Procedure Date Ordered Result Body Site Medication: 1% Lidocaine Dilutent (xylocaine) 2020-03-26 N/ A RESULTS No Results REASON FOR VISIT BUMP ON HEAD, MOLE CHECK MEDICAL (GENERAL) HISTORY Type Description Date Surgical History No Surgical history information Goals Section No Information Health Concerns No Information MEDICAL EQUIPMENT No Information MENTAL STATUS No Information FUNCTIONAL STATUS No Information ASSESSMENTS Encounter Date Diagnosis Assessment Notes Treatment Notes Treatm ent Clinical Notes Mar, Dermal nevus (ICD-10 - D23.9) Benign Lesion Counseling. The patient was extensively counseled regarding the benign nature of the lesion but that skin cancer may arise in this area just as it would anywhere on their skin. For that reason, return to clinic was recommended for any acute changes, itching, burning, or bleeding. The patient was educated that benign lesions are not a covered insurance benefit and treatment would be elective and cosmetic. They expressed understanding. 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 standards. The patient was educated on the potential risks and benefits of the procedure and gave his/her informed consent. Location of biopsy noted in the physical exam and images uploaded to the medical record. Area(s) treated with EtOH. Local anesthesia performed with <1mL of 1% lidocaine with per site. Site(s) verified with patient via timeout utilizing patient name and date of . Biopsy/Biopsies performed. Dual site-specimen cup verification performed verbally between provider and clinic staff. Hemostasis achieved with hyfrecation or aluminum chloride/styptic. Closure: secondary inte nt. Petrolatum and bandage applied. Wound care instruction addressed with patient by provider or clinic staff and wound care handout given. Patient tolerated the procedure well and left in stable condition. Patient reports that his/her pain was well-managed. There was no noted significant difference from baseline pain score after procedure. Patient was educated to use acetaminophen 500mg up to 4 times daily. If not sufficient, patient was educated to re-present to the dermatology clinic or, if after hours, the emergency department. Patient was informed they would be notified in 10-14 days by telephone for all malignant conditions and scheduled for definitive management. Mar, Inflamed skin tag (ICD-10 - L91.8) Lesion(s) destructed in office today with electrocautery. Area was prepped with alcohol pad, destruction with cautery to irritated lesions, followed by application of vaseline. Mar, Neoplasm of uncertain behavior (ICD-10 - D48.9) Shave biopsy Irritated dermal nevus left lower leg Procedure: Tangential Biopsy [place] protocol was followed in compliance with [facility] standards. The patient was educated on the potential risks and benefits of the procedure and gave his/her informed consent. Location of biopsy noted in the physical exam and images uploaded to the medical record. Area(s) treated with EtOH. Local anesthesia performed with <1mL of 1% lidocaine with epinephrine per site. Site(s) verified with patient via timeout utilizing patient name and date of . Biopsy/Biopsies performed. Dual site-specimen cup verification performed verbally between provider and clinic staff. Hemostasis achieved with hyfrecation or aluminum chloride/styptic. Closure: se condary intent. Petrolatum and bandage applied. Wound care instruction addressed with patient by provider or clinic staff and wound care handout given. Patient tolerated the procedure well and left in stable condition. Patient reports that his/her pain was well-managed. There was no noted significant difference from baseline pain score after procedure. Patient was educated to use acetaminophen 500mg up to 4 times daily. If not sufficient, patient was educated to re-present to the dermatology clinic or, if after hours, the emergency department. Patient was informed they would be notified in 10-14 days by telephone for all malignant conditions and scheduled for definitive management. PLAN OF TREATMENT Treatment Notes Assessment Notes Clinical Notes Dermal nevus Benign Lesion Sarae gilberto. The patient was extensively counseled regarding the benign nature of the lesion but that skin cancer may arise in this area just as it would anywhere on their skin. For that reason, return to clinic was recommended for any acute changes, itching, burning, or bleeding. The patient was educated that benign lesions are not a covered insurance benefit and treatment would be elective and cosmetic. They expressed understanding. Neoplasm of uncertain behavior of scalp Shave biopsy: Irritated dermal nevus scalpProcedure: Tangential Biopsy [place] protocol was followed in compliance with [facility] standards. The patient was educated on the potential risks and benefits of the procedure and gave his/her informed consent. Location of biopsy noted in the physical exam and images uploaded to the medical record. Area(s) treated with EtOH. Local anesthesia performed with <1mL of 1% lidocaine with per site. Site(s) verified with patient via timeout utilizing patient name and date of . Biopsy/Biopsies performed. Dual site-specimen cup verification performed verbally between provider and clinic staff. Hemostasis achieved with hyfrecation or aluminum chloride/styptic. Closure: secondary intent. Petrolatum and bandage applied. Wound care instruction addressed with patient by provider or clinic staff and wound care handout given. Patient tolerated the procedure well and left in stable condition. Patient reports that his/her pain was well-managed. There was no noted significant difference from baseline pain score after procedure. Patient was educated to use acetaminophen 500mg up to 4 times daily. If not sufficient, patient was educated to re-present to the dermatology clinic or, if after hours, the emergency department. Patient was informed they would be notified in 10-14 days by telephone for all malignant conditions and scheduled for definitive management. Inflamed skin tag Lesion(s) destructed in office today with electrocautery. Area was prepped with alcohol pad, destruction with cautery to irritated lesions, followed by application of vaseline. Neoplasm of uncertain behavior Shave bio psy Irritated dermal nevus left lower legProcedure: Tangential Biopsy [place] protocol was followed in compliance with [facility] standards. The patient was educated on the pote ntial risks and benefits of the procedure and gave his/her informed consent. Location of biopsy noted in the physical exam and images uploaded to the medical record. Area(s) treated with EtOH. Local anesthesia performed with <1mL of 1% lidocaine with epinephrine per site. Site(s) verified with patient via timeout utilizing patient name and date of . Biopsy/Biopsies performed. Dual site-specimen cup verification performed verbally between provider and clinic staff. Hemostasis achieved with hyfrecation or aluminum chloride/styptic. Closure: secondary intent. Petrolatum and bandage applied. Wound care instruction addressed with patient by provider or clinic staff and wound care handout given. Patient tolerated the procedure well and left in stable condition. Patient reports that his/her pain was well-managed. There was no noted significant difference from baseline pain score after procedure. Patient was educated to use acetaminophen 500mg up to 4 times daily. If not sufficient, patient was educated to re-present to the dermatology clinic or, if after hours, the emergency department. Patient was informed they would be notified in 10-14 days by telephone for all malignant conditions and scheduled for definitive management. Next Appt Details Schedule GSE Reason: Provider Name:Sarahi Damon Horacio, 2020-09-24 02:15:00 PM, [address] [place], [address], Insurance Providers Payer Name Payer Address Payer Phone Insured Name Patient Relati onship to Insured Coverage Start Date Coverage End Date [facility] [address] [address] [facility] [id number] HEMANT ESTRADA self
--- OUTSIDE RECORDS SUMMARY | 2020-04-12 11:26 | CCD | Continuity of Care Document ---
Author Author Emily JEAN-BAPTISTE M.D. Organization Unknown Address [address] [address] Phone [phone] Problems Active Problems Provider Date Panic disorder without agoraphobia Shawna Schuler [facility]- O nset: 03/12/2011 Anxiety state Lucia Biggs, [...] by mouth once a day as needed [id number] 30tabs F41.9 Duke Jean-Baptiste M.D. History Medications [...] CPT Code Status Date Vaccine Lot # [id number] Given 10/31/2019 Influenza Virus Vaccine, Quadrivalent, Slit Virus, Im Use 3Y & Up [id number] 09517 Given 12/28/2018 Influenza Virus Vaccine, Quadrivalent, Slit Virus, Im Use 3Y & Up [id number] 91915 Given 02/05/2017 Influenza Virus Vaccine, Quadrivalent, Slit Virus, Im Use 3Y & Up [id number] Given 12/16/2015 Influenza Virus Vaccine, Quadrivalent, Slit Virus, Im Use 3Y & Up [id number] Vital Signs Date Vital Result Comment 04/05/2020 3:47pm BP Systolic 104 mmHg BP Diastolic 82 mmHg Body Temperature 97.0 F Heart Rate 95 /min Respiratory Rate 16 /min Height 62 inches 5'2" Weight 141.00 lb [place] Body Weight 110 lb BMI (Body Mass Index) 25.8 kg/m2 O2 % BldC Oximetry 98 % 02/19/2020 2:47pm BP Systolic 112 mmHg BP Diastolic 72 mmHg Body Temperature 98.1 F Heart Rate 97 /min Respiratory Rate 16 /min Height 62 inches 5'2" Weight 144.00 lb [place] Body Weight 110 lb BMI (Body Mass Index) 26.3 kg/m2 O2 % BldC Oximetry 97 % Results Test Acquired Date Facility Test Result H/L Range Note Laboratory test finding 12/24/2019 [facility] ([facility]) [phone] iSTAT Troponin 0.00 NG/ML Normal 0.00-0.08 Laboratory test finding 12/24/2019 [facility] (Interface) [phone] iSTAT Troponin 0.00 NG/ML Normal 0.00-0.08 CBC With Differential 12/24/2019 [facility]) [phone] White Blood Count 7.8 10 Normal 4.0-10.0 [...] 36.0-66.0 Lymph % 25.1 % Normal 24.0-44.0 [place] % 5.5 % High 0.0-5.0 Eos % 3.3 % High 0.0-3.0 Baso % 0.6 % Normal 0.0-1.0 Immature Granulocyte % 0.4 % Normal 0-3.0 Nucleated Red Blood Cell % 0.0 % Normal 0-0 Neutrophils # 5.1 10 Normal 1.5-8.5 Lymph # 2.0 10 Normal 1.5-5.0 [place] # 0.4 10 Normal 0.0-0.8 Eos # 0.3 10 Normal 0.0-0.5 Baso # 0.1 10 Normal 0.0-0.2 Prothrombin Time/Inr 12/24/2019 [facility] ( [employer]) [phone] Prothrombin Time 13.6 seconds Normal 12.5-14.3 Inr 1.02 Normal 1 Laboratory test finding 12/24/2019 [facility] ([facility]) [phone] Partial Thromboplastin Time 27.9 seconds Normal 24 .2-38.5 D-Dimer Quant < 270 ng/ml Normal <500 Liver Profile 12/24/2019 [facility] [phone] Ast/Sgot 11 U/L Normal 7-37 Alt/SGPT 15 U/L Normal 12-78 Alkaline Phosphatase 60 U/L Normal 45-117 Bilirubin,Total 0.5 mg/dL Normal 0.2-1.0 Bilirubin,Direct 0.1 mg/dL Normal 0.0-0.2 Total Protein 7.2 GM/DL Normal 6.4-8.2 Albumin 4.0 GM/DL Normal 3.2-5.2 Albumin/Globulin Ratio 1.3 Normal 1.2-2.2 Basic Metabolic Profile 12/24/2019 [facility] ([facility]) [phone] Glucose, Fasting 96 mg/dL Normal 70-100 Blood [...] mg/dL Normal 8.5-10.1 Laboratory test finding 12/24/2019 [facility] (Interface) [phone] NT-Pro BNP 84 pg/mL Normal <125 Lipase [...] Little GFR Left ESRD GFR <15 on VP DIRECTOR OF [employer]ATIVE STRATEGY 3 NORMAL RANGES Age WBC RBC HGB [...] HCT IS 5% LESS SOURCE FOR DATA: Tagent 1800 OPERATION MANUAL( AUTOMATED BLOOD COUNTS AND DIFF.) APPENDIX B-3 Procedures Description No Information Available Medical Devices Description No Information Available Encounters Type Date Location Provider Dx Diagnosis Office Visit 04/05/2020 3:40p [place] Duke Jean-Baptiste M. D. 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 Office Visit 01/03/2020 3:15p [facility] Rayne Dominguez PA F41.9 Anxiety disorder, unspecified R12 Heartburn R00.2 Palpitations Office Visit 10/31/2019 3:15p [facility] Rayne Dominguez PA R07.0 Pain in [...] RPA 01/03/2020 F41.9 Anxiety disorder, unspecified Ba luis eduardo Misty Mayer, PA 01/03/2020 R12 Heartburn Angelica Ghassan Mayer, PA 01/03/2020 R00.2 Palpitations Angelica RYAN Wilson 10/31/2019 R07.0 Sore throat symptom Angelica Misty Mayer PA 10/31/2019 F41.9 Anxiety disorder, unspecified Ba luis eduardo Misty Mayer, PA 10/31/2019 R23.8 Other skin changes Misty Dominguez PA 10/31/2019 Z23 Encounter for immunization Misty Mckeon PA Plan of Treatment No Information Available Functional Status Description No Information Available Mental Status Description No Information Available Referrals Refer to Reason for Referral Status Appt Date Lisandro Payne M.D. Fullness in throat and sore tongue x 1 month. Sent 03/13/2020 [facility] [address] [id number] [phone] [facility] eval and treat anxiety. Mendoza ing buspirone 15 mg one tab po tid. Has stressful job. Would like therapist to help her with her anxiety. Denies medication adjustment or changes at this time. Sent [address] [place], [place] [address] [phone] [facility] Derm[facility]ology eval and treat skin changes. Skin nodule under left breast, raised, brown in color, regular borders, has started to raise. skin nodule on the left lower leg on the anterior aspect raised, brown in color, regular border. Sent [address] [facility] [address] [place], [place] [id number] [phone]
--- OUTSIDE RECORDS SUMMARY | 2020-04-12 11:26 | CCD | Continuity of Care Document ---
Author Author Emily VILLA [facility] Organization Unknown Address [address] [address] Phone [phone] Problems Active Problems Provider Date Panic disorder without agoraphobia Shawna Schuler [facility]- O nset: 03/12/2011 Anxiety state Lucia Biggs RPA- Onset: 2012 Asthma Misty Dominguez PA Onset: [...] by mouth once a day as needed [id number] 30tabs F41.9 Duke Jean-Baptiste M.D. History Medications Omeprazole 20mg Capsules DR 1 by mouth every morning 90caps Mathew Morgan D.O., FAAFP - 02/19/[address] 1 cap by mouth once daily 90caps Mathew Morgan D.O., FAAFP 12/2019 - 02/19/2020 Buspirone HCL 30mg Tablets 1 by mouth twice a day 180tabs Mathew Morgan D.O., FAAFP - 10/20/2019 Hydrocortisone (Perianal) 1% Cream apply small amount to hemrrhoid twice daily 28.400gm Mathew Morgan D.O., FAAFP 2019 - 09/07/2019 Medications Administered in Office Medication SIG Qnty Indications Ordering Provider Date Injection (SC)/(Im) Injection Lucia Biggs RPA-C 04/07/2013 Immunizations CPT Code Status Date Vaccine Lot # 14565 Given 10/31/2019 Influenza Virus Vaccine, Quadrivalent, Slit Virus, Im Use 3Y & Up [id number] Given 12/28/2018 Influenza Virus Vaccine, Quadrivalent, Slit Virus, Im Use 3Y & Up [id number] 97562 Given 02/05/2017 Influenza Virus Vaccine, Quadrivalent, Slit Virus, Im Use 3Y & Up [id number] 86133 Given 12/16/2015 Influenza Virus Vaccine, Quadrivalent, Slit Virus, Im Use 3Y & Up [id number] Vital Signs Date Vital Result Comment 02/19/2020 2:47pm BP Systolic 112 mmHg BP Diastolic 72 mmHg Body Temperature 98.1 F Heart Rate 97 /min Respiratory Rate 16 /min Height 62 inches 5'2" Weight 144.00 lb [place] Body Weight 110 lb BMI (Body Mass Index) 26.3 kg/m2 O2 % BldC Oximetry 97 % 01/03/2020 3:19pm BP Systolic 102 mmHg BP Diastolic 78 mmHg Body Temperature 97.8 F Heart Rate 92 /min Respiratory Rate 16 /min Height 62 inches 5'2" Weight 137.00 lb [place] Body Weight 110 lb BMI (Body Mass Index) 25.1 kg/m2 O2 % BldC Oximetry 98 % Results Test Acquired Date Facility Test Result H/L Range Note Laboratory test finding 12/24/2019 [facility] ([facility]) [phone] iSTAT Troponin 0.00 NG/ML Normal 0.00-0.08 Laboratory test finding 12/24/2019 [facility] ([facility]) [phone] iSTAT Troponin 0.00 NG/ML Normal 0.00-0.08 CBC With Differential 12/24/2019 [facility]) [phone] White Blood Count 7.8 10 Normal 4.0-10.0 [...] 36.0-66.0 Lymph % 25.1 % Normal 24.0-44.0 [place] % 5.5 % High 0.0-5.0 Eos % 3.3 % High 0.0-3.0 Baso % 0.6 % Normal 0.0-1.0 Immature Granulocyte % 0.4 % Normal 0-3.0 Nucleated Red Blood Cell % 0.0 % Normal 0-0 Neutrophils # 5.1 10 Normal 1.5-8.5 Lymph # 2.0 10 Normal 1.5-5.0 Bollinger # 0.4 10 Normal 0.0-0.8 Eos # 0.3 10 Normal 0.0-0.5 Baso # 0.1 10 Normal 0.0-0.2 Prothrombin Time/Inr 12/24/2019 [facility]) [phone] Prothrombin Time 13.6 seconds Normal 12.5-14.3 Inr 1.02 Normal 1 Laboratory test finding 12/24/2019 [facility] (Interface) [phone] Partial Thromboplastin Time 27.9 seconds Normal 24 .2-38.5 D-Dimer Quant < 270 ng/ml Normal <500 Liver Profile 12/24/2019 [facility] ([place]) [phone] Ast/Sgot 11 U/L Normal 7-37 Alt/SGPT 15 U/L Normal 12-78 Alkaline Phosphatase 60 U/L Normal 45-117 Bilirubin,Total 0.5 mg/dL Normal 0.2-1.0 Bilirubin,Direct 0.1 mg/dL Normal 0.0-0.2 Total Protein 7.2 GM/DL Normal 6.4-8.2 Albumin 4.0 GM/DL Normal 3.2-5.2 Albumin/Globulin Ratio 1.3 Normal 1.2-2.2 Basic Metabolic Profile 12/24/2019 [facility] ([facility]) [phone] Glucose, Fasting 96 mg/dL Normal 70-100 Blood [...] mg/dL Normal 8.5-10.1 Laboratory test finding 12/24/2019 [facility] ([facility]) [phone] NT-Pro BNP 84 pg/mL Normal <125 Lipase [...] 1.8 MPV 9.9 fL 9.0 - 13.0 CBC 09/07/2019 [facility] WBC 6.5 10E3/uL 4.1 - 10.9 4 RBC 4.49 10E6/uL 4.20 - 6.30 HGB 14.5 g/dL 12.0 - 18.0 HCT 42.3 % 37.0 - 51.0 MCV 94.2 fL 80.0 - 97.0 MCH 32.3 pg High 26.0 - 32.0 MCHC 34.3 g/dL 31.0 - 36.0 PLT 263 10E3/uL 140 - 440 RDW-CV 12.9 % 11.5 - 14.5 Lym% 30.7 % 10.0 - 58.5 Neut% 59.3 % 37.0 - 92.0 MXD% 10.0 % 0.1 - 24.0 Lym# 2.0 10E3/uL 0.6 - 4.1 Neut# 3.8 % 2.0 - 7.8 MXD# 0.7 10E3/uL 0.0 - 1.8 MPV 10.3 fL 9.0 - 13.0 CMP 09/07/2019 [facility] Glu 95 mg/dL 70 - 110 BUN 13 mg/dL 8 - 23 Creat 1.0 mg/dL 0.5 - 1.0 BUN/Creatinine Ratio 12.9 Calc Na 139 mmol/L 136 - 145 K 4.1 mmol/L 3.5 - 5.1 CL 105.2 mmol/L 98.0 - 107.0 Co2 22.7 mmol/L 22.0 - 29.0 CA 9.5 mg/dL 8.6 - 10.2 TP 6.9 g/dL 6.6 - 8.7 Alb 4.6 g/dL 3.4 - 4.8 A/G Ratio 2.0 Calc Globulin 2.3 Calc Alp 50.8 U/L 35 - 129 Alt (SGPT) 8 U/L 0 - 41 Ast (Sgot) 13 U/L 0 - 40 Tbili 0.17 mg/dL 0.0 - 1.2 Osmolality-Calculated 276.5 Calc Anion Gap 15 mmol/L eGFR 81 # Calc 5 eGFR Non-Afr. Prydeinig 70 # Calc 6 Laboratory test finding 09/07/2019 [facility] TSH 1.241 ulU/mL 0.60 - 4.8 1 THERAPUTIC HUMAN INR VALUES INDICATIONS NORMAL [...] Little GFR Left ESRD GFR <15 on [employer] 3 NORMAL RANGES Age WBC RBC HGB HCT MCV PLT Adult M 4.1-10.9 4.20-6.30 12.0-18.0 37.0-51.0 80- 140-440 Adult F 4.1-10.9 4.04-5.48 12.0-18.0 37.0-51.0 80- 140-440 0 -1 Yr 5.0-20.0 3.9-5.9 15-18 [...] HCT IS 5% LESS SOURCE FOR DATA: [employer] 1800 OPERATION MANUAL( AUTOMATED BLOOD COUNTS AND DIFF.) APPENDIX B-3 4 NORMAL RANGES Age WBC RBC HGB HCT MCV PLT Adult M 4.1-10.9 4.20-6.30 12.0-18.0 37.0-51.0 80- 140-440 Adult F 4.1-10.9 4.04-5.48 12.0-18.0 37.0-51.0 [...] HCT IS 5% LESS SOURCE FOR DATA: [employer] 1800 OPERATION MANUAL( AUTOMATED BLOOD COUNTS AND DIFF.) APPENDIX B-3 CHRONIC KIDNEY DISEASE STAGING PER NKF: MALE GFR INTERPRETATION: 20-49 YRS: >60 mL/min Normal 50-59 YRS: >56 mL/min Normal 60-69 YRS: >49 mL/min Normal 70-79 YRS: >42 mL/min Normal 80 and above >35 mL/min Normal FEMALE GRF INTERPRETATION: 20-39 YRS: >60 mL/min Normal 40-49 YRS: >58 mL/min Normal 50-59 YRS: >51 mL/min Normal 60-69 YRS: >45 mL/min Normal 70-79 YRS: >39 mL/min Normal 80 and above >32 mL/min Normal 5 CKD-EPI 6 CKD-EPI Procedures Date Code Description Status 09/07/2019 46515 Electrocardiogram Complete Compl eted Medical Devices Description No Information Available Encounters Type Date Location Provider Dx Diagnosis Office Visit 02/19/2020 2:00p [facility] Carlos A Villa, RP A S10.14xA External constriction of part of throat, initial encounter 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 Office Visit 01/03/2020 3:15p [facility] Rayne Dominguez PA F41.9 Anxiety disorder, unspecified R12 Heartburn R00.2 Palpitations Office Visit 10/31/2019 3:15p [facility] Rayne Dominguez PA R07.0 Pain in throat F41.9 Anxiety disorder, unspecifie d R23.8 Other skin changes Z23 Encounter for immunization Office Visit 09/26/2019 3:00p [facility] Rayne Dominguez PA R00.2 Palpitations F41.9 Anxiety disorder, unspecifie d Office Visit 09/07/2019 3:00p [facility] Barraclough, Misty M, PA R42 Dizziness and giddiness R00.2 Palpitations Office Visit 2019 3:00p [facility] Rayne Dominguez PA K64.8 Other hemorrhoids Assessments Date Code Description Provider 02/19/2020 S10.14xA External constriction of part of throat, initial encounter Carlos A Villa, RPA 02/19/2020 D44.0 Neoplasm of uncertain behavior o f thyroid gland Carlos A Villa, RPA 01/03/2020 F41.9 Anxiety disorder, unspecified Ba Misty hoff, PA 01/03/2020 R12 Heartburn Ghassan Dominguez, PA 01/03/2020 R00.2 Palpitations Ghassan Dominguez, PA 10/31/2019 R07.0 Sore throat symptom Misty Dominguez, PA 10/31/2019 F41.9 Anxiety disorder, unspecified Ba Misty hoff, PA 10/31/2019 R23.8 Other skin changes Misty Dominguez, PA 10/31/2019 Z23 Encounter for immunization Tricia catherineMisty quigley, PA 09/26/2019 R00.2 Palpitations Ghassan Dominguez, PA 09/26/2019 F41.9 Anxiety disorder, unspecified Ba Misty hoff, PA 09/07/2019 R42 Dizziness and giddiness Jasmin Misty baugh, PA 09/07/2019 R00.2 Palpitations Ghassan Dominguez, PA 2019 K64.8 External hemorrhoids Misty Dominguez PA Plan of Treatment Future Appointment(s):* 04/05/2020 3:15 pm - Misty Dominguez PA at [facility] Functional Status Description No Information Available Mental Status Description No Information Available Referrals Refer to Reason for Referral Status Appt Date Lisandro Payne M.D. Fullness in throat and sore tongue x 1 month. Sent [facility] [address] [address] [phone] [facility] eval and treat anxiety. [place] ing buspirone 15 mg one tab po tid. Has stressful job. Would like therapist to help her with her anxiety. Denies medication adjustment or changes at this time. Sent [address], [place] [address] [phone] [facility] Dermatology eval and treat skin changes. Skin nodule under left breast, raised, brown in color, regular borders, has started to raise. skin nodule on the left lower leg on the anterior aspect raised, brown in color, regular border. Sent [address] [facility] [address] [place] [address] [phone] [facility] Cardiology eval and treat palpitat ions r/o cardiac causes. Patient does have anxiety treated with buspirone 30 mg po bid. Continued palpitations, was evaluated in 2015 for similar issues. EKG 09/07/2019 in office sinus arrhythmia Sent 12/29/[address] [place] [address] [place] [id number] [phone]
--- OUTSIDE RECORDS SUMMARY | 2020-04-12 11:27 | CCD | Continuity of Care Document ---
Author Author Emily MUNIZ MD Organization Unknown Address [address] [place] [address] Phone [phone] Care Team Providers Care Linecasting Machine Keyboard Operator Name Role Phone Duke Jean-Baptiste M.D. AUTM [phone] Problems Active Problems Provider Date Dyspnea Edvin Muniz MD Onset: 02/07/2015 Social History Type Date Description Comments Sex Unknown Tobacco Use Start: 02/22/99 Patient is a current smoker, smo kes every day hx 1/2 ppd x 20 yrs; 5 cigarettes daily Smoking Status Reviewed: 01/30/20 Patient is a current smoker, smokes every day hx 1/2 ppd x 20 yrs; 5 cigarettes daily Allergies, Adverse Reactions, Alerts Active Allergies Reaction Severity Comments Date Shellfish-Derived Products Anaphylaxis 1 04/10/2014 Tetracycline Urticaria 02/07/2015 Medications Active Medications SIG Qnty Indications Ordering Provide r Date Xopenex HFA 45mcg/Act Aerosol 2 puffs four times a day as needed 45gm J45.30 Edvin Muniz MD 2018 Arnuity Ellipta 100mcg/Act Aerosol 1 puff every day 90units Edvin Muniz MD 06/30/2017 Buspirone HCL 15mg Tablets 1 by mouth twice a day Unknown Omeprazole 20mg Capsules DR 1 by mouth every day Unknown Immunizations CPT Code Status Date Vaccine Lot # [id number] Given 12/21/2019 Afluria, Quadrivalent, 0.5ml , [facility]# [id number] Vital Signs Date Vital Result Comment 01/30/2020 12:45pm BP Systolic 104 mmHg BP Diastolic 82 mmHg Heart Rate 78 /min O2 % BldC Oximetry 98 % Height 61 inches 5'1" Weight 142.00 lb BMI (Body Mass Index) 26.8 kg/m2 [place] Body Weight 105 lb Weight 64.411 kg BSA (Body Surface Area) 1.63 m2 06/27/2019 1:23pm BP Systolic 104 mmHg BP Diastolic 70 mmHg Heart Rate 85 /min O2 % BldC Oximetry 97 % Room Air Height 61 inches 5'1" Weight 139.00 lb BMI (Body Mass Index) 26.3 kg/m2 [place] Body Weight 105 lb Weight 63.050 kg BSA (Body Surface Area) 1.62 m2 Results Test Acquired Date Facility Test Result H/L Range Note FVL/Felice 01/30/2020 [employer] SEE IMAGE FVC-Pred 3.33 L FVC-Pre 3.94 L FVC-%Pred-Pre 118 L FVC-LLN 2.69 L Fev1-Pred 2.72 L Fev1-Pre 3.11 L Fev1-%Pred-Pre 114 L Fev1-LLN 2.19 L Fev6-Pred 3.27 L Fev6-Pre 3.94 L Fev6-%Pred-Pre 120 L Fev6-LLN 2.65 L Gsi9wbh-Luyq 82 % Qdz4efy-Rry 79 % Rfp7mlk-%Pred-Pre 96 % Njs1ofc-VAV 72 % Dvc8gzt-Igyw 98 % Eaq8aqe-Zvn 100 % Idw3afd-%Pred-Pre 101 % FEFMax-Pred 6.51 L/E/sec FEFMax-Pre 5.00 L/E/sec FEFMax-%Pred-Pre 76 L/E/sec FEFMax-LLN 4.95 L/E/sec Gqy8487-Sitw 2.93 L/E/sec Rco4425-Bye 2.92 L/E/sec Vso7645-%Pred-Pre 99 L/E/sec Mdc1225-AMO 1.80 L/E/sec ExpTime-Pre 6.74 sec Nyv7req6-Htow 84 % Fyp0mpx8-Dly 79 % Ipg0pzs7-%Pred-Pre 94 % Qhr3dar2-AAG 75 % Procedures Description No Information Available Medical Devices Description No Information Available Encounters Description No Information Available Assessments Date Code Description Provider 01/30/2020 J45.30 Mild persistent asthma, uncompli cated Edvin Muniz MD 01/30/2020 F17.218 Nicotine dependence, cigarettes, with other nicotine-induced Edvin Muniz MD Plan of Treatment Future Appointment(s):* 07/30/2020 3:00 pm - Edvin Muniz MD at [facility] 01/30/2020 - Edvin Muniz MD* J45.30 Mild persistent asthma, uncomplicated * F17.218 Nicotine dependence, cigarettes, with other nicotine-induced * * New Labs:* FVL/Felice, Scheduled: 07/30/20 * Follow up:* Follow up in six months with spirometry, oximetry and flow volume loop. Functional Status Description No Information Available Mental Status Description No Information Available Referrals Description No Information Available
--- OUTSIDE RECORDS SUMMARY | 2020-04-12 11:27 | CCD ---
Author Author [facility] Address Unknown Phone Unavailable Care Team Providers Care Police Patrol Lieutenant Name Role Phone Barraclough, Misty PA Unavailable Unavailable Barraclough, Misty PA Unavailable Unavailable Barraclough, Misty PA Unavailable Unavailable Barraclough, Misty PA Unavailable Unavailable Barraclough, Misty PA Unavailable Unavailable Barraclough, Misty PA Unavailable Unavailable Rachel SCOTT MD Unavailable Unavailable Rachel SCOTT MD Unavailable Unavailable Rachel SCOTT MD Unavailable Unavailable Rachel SCOTT MD Unavailable Unavailable Rachel SCOTT MD Unavailable Unavailable Rachel SCOTT MD Unavailable Unavailable Rachel SCOTT MD Unavailable Unavailable Rachel SCOTT MD Unavailable Unavailable Rachel SCOTT MD Unavailable Unavailable Rachel SCOTT MD Unavailable Unavailable Rachel SCOTT MD Unavailable Unavailable Rachel SCOTT MD Unavailable Unavailable Rachel SCOTT MD Unavailable Unavailable Rachel SCOTT MD Unavailable Unavailable Rachel SCOTT MD Unavailable Unavailable Rachel SCOTT MD Unavailable Unavailable Rachel SCOTT MD Unavailable Unavailable Rachel SCOTT MD Unavailable Unavailable Rachel SCOTT MD Unavailable Unavailable Rachel SCOTT MD Unavailable Unavailable Rachel SCOTT MD Unavailable Unavailable SONIARachel MD Unavailable Unavailable SONIARachel MD Unavailable Unavailable SONIARachel MD Unavailable Unavailable SONIA, H IKER MILLNA Unavailable Unavailable SONIA H IKER MILLAN Unavailable Unavailable SONIA, H IKER MILLAN Unavailable Unavailable SONIA, H IKER MD Unavailable Unavailable SONIA, H IKER MILLAN Unavailable Unavailable SONIA, H IKER MILLAN Unavailable Unavailable SONIA, H IKER MILLAN Unavailable Unavailable SONIA, H IKER MILLAN Unavailable Unavailable SONIA, H IKER MILLAN Unavailable Unavailable SONIA, H IKER MD Unavailable Unavailable SONIA, H IKER MILLAN Unavailable Unavailable SONIA, H IKER MD Unavailable Unavailable SONIA, H IKER MD Unavailable Unavailable SONIA, H IKER MD Unavailable Unavailable SONIA, H IKER MD Unavailable Unavailable SONIA, H IKER MD Unavailable Unavailable SONIA, H IKER MD Unavailable Unavailable SONIA, H IKER MD Unavailable Unavailable SONIA, H IKER MD Unavailable Unavailable SONIA, H IKER MD Unavailable Unavailable SONIA, H IKER MD Unavailable Unavailable SONIA, H IKER MD Unavailable Unavailable SONIARachel MD Unavailable Unavailable SONIA, Rachel DONG MD Unavailable Unavailable SONIA, H IKER MILLAN Unavailable Unavailable Rachel SCOTT MD Unavailable Unavailable SONIA, Rachel DONG MD Unavailable Unavailable SONIA, Rachel DONG MD Unavailable Unavailable SONIA, Rachel DONG MD Unavailable Unavailable SONIA, Rachel DONG MD Unavailable Unavailable Rachel SCOTT MD Unavailable Unavailable Rachel SCOTT MD Unavailable Unavailable Rachel SCOTT MD Unavailable Unavailable Rachel SCOTT MD Unavailable Unavailable SONIA, Rachel DONG MD Unavailable Unavailable SONIA, H IKER MILLAN Unavailable Unavailable Rachel SCOTT MD Unavailable Unavailable Rachel SCOTT MD Unavailable Unavailable Rachel SCOTT MD Unavailable Unavailable Rachel SCOTT MD Unavailable Unavailable Rachel SCOTT MD Unavailable Unavailable Rachel SCOTT MD Unavailable Unavailable Rachel SCOTT MD Unavailable Unavailable Rachel SCOTT MD Unavailable Unavailable Rachel SCOTT MD Unavailable Unavailable Rachel SCOTT MD Unavailable Unavailable Rachel SCOTT MD Unavailable Unavailable Rachel SCOTT MD Unavailable Unavailable Rachel SCOTT MD Unavailable Unavailable Rachel SCOTT MD Unavailable Unavailable Rachel SCOTT MD Unavailable Unavailable SONIARachel MD Unavailable Unavailable Daisy, D Carlos A PA Unavailable Unavailable Daisy, D Carlos A PA Unavailable Unavailable Daisy, D Carlos A PA Unavailable Unavailable Daisy, D Carlos A PA Unavailable Unavailable Daisy, D Carlos A PA Unavailable Unavailable Daisy, D Carlos A PA Unavailable Unavailable Daisy, D Carlos A PA Unavailable Unavailable Daisy, D Carlos A PA Unavailable Unavailable Daisy, D Carlos A PA Unavailable Unavailable Daisy, D Carlos A PA Unavailable Unavailable Daisy, D Carlos A PA Unavailable Unavailable Daisy, D Carlos A PA Unavailable Unavailable Daisy, D Carlos A PA Unavailable Unavailable Daisy, D Carlos A PA Unavailable Unavailable Daisy, D Carlos A PA Unavailable Unavailable Daisy, D Carlos A PA Unavailable Unavailable Daisy, D Carlos A PA Unavailable Unavailable Daisy, D Carlos A PA Unavailable Unavailable Daisy, D Carlos A PA Unavailable Unavailable Daisy, D Carlos A PA Unavailable Unavailable Daisy, D Carlos A PA Unavailable Unavailable Daisy, D Carlos A PA Unavailable Unavailable Daisy, D Carlos A PA Unavailable Unavailable Daisy, D Carlos A PA Unavailable Unavailable Daisy, D Carlos A PA Unavailable Unavailable Daisy, D Carlos A PA Unavailable Unavailable Daisy, D Carlos A PA Unavailable Unavailable Daisy, D Carlos A PA Unavailable Unavailable Daisy, D Carlos A PA Unavailable Unavailable Daisy, D Carlos A PA Unavailable Unavailable Daisy, D Carlos A PA Unavailable Unavailable Daisy, D Carlos A PA Unavailable Unavailable Daisy, D Carlos A PA Unavailable Unavailable Daisy, D Carlos A PA Unavailable Unavailable Daisy, D Carlos A PA Unavailable Unavailable Daisy, D Carlos A PA Unavailable Unavailable Daisy, D Carlos A PA Unavailable Unavailable Daisy, D Carlos A PA Unavailable Unavailable Daisy, D Carlos A PA Unavailable Unavailable Daisy, D Carlos A PA Unavailable Unavailable Daisy, D Carlos A PA Unavailable Unavailable Daisy, D Carlos A PA Unavailable Unavailable Daisy, D Carlos A PA Unavailable Unavailable Daisy, D Carlos A PA Unavailable Unavailable Daisy, D Carlos A PA Unavailable Unavailable Daisy, D Carlos A PA Unavailable Unavailable Daisy, D Carlos A PA Unavailable Unavailable Daisy, D Carlos A PA Unavailable Unavailable Daisy, D Carlos A PA Unavailable Unavailable Daisy, D Carlos A PA Unavailable Unavailable Daisy, D Carlos A PA Unavailable Unavailable Daisy, D Carlos A PA Unavailable Unavailable Daisy, D Carlos A PA Unavailable Unavailable Daisy, D Carlos A PA Unavailable Unavailable Daisy, D Carlos A PA Unavailable Unavailable Daisy, D Carlos A PA Unavailable Unavailable Daisy, D Carlos A PA Unavailable Unavailable Daisy, D Carlos A PA Unavailable Unavailable Daisy, D Carlos A PA Unavailable Unavailable Daisy, D Carlos A PA Unavailable Unavailable Daisy, D Carlos A PA Unavailable Unavailable Daisy, D Carlos A PA Unavailable Unavailable Daisy, D Carlos A PA Unavailable Unavailable MADINA, JORDAN PA Unavailable Unavailable MADINA, JORDAN PA Unavailable Unavailable MADINA, JORDAN PA Unavailable Unavailable MADINA, JORDAN PA Unavailable Unavailable MADINA, JORDAN PA Unavailable Unavailable MADINA, JORDAN PA Unavailable Unavailable MADINA, JORDAN PA Unavailable Unavailable MADINA, JORDAN PA Unavailable Unavailable MADINA, JORDAN PA Unavailable Unavailable MADINA, JORDAN PA Unavailable Unavailable MADINA, JORDAN PA Unavailable Unavailable MADINA, JORDAN PA Unavailable Unavailable MADINA, JORDAN PA Unavailable Unavailable MADINA, JORDAN PA Unavailable Unavailable MADINA, JORDAN PA Unavailable Unavailable MADINA, JORDAN PA Unavailable Unavailable MADINA, JORDAN PA Unavailable Unavailable MADINA, JORDAN PA Unavailable Unavailable MADINA, JORDAN PA Unavailable Unavailable MADINA, JORDAN PA Unavailable Unavailable MADINA, JORDAN PA Unavailable Unavailable MADINA, JORDAN PA Unavailable Unavailable MADINA, JORDAN PA Unavailable Unavailable MADINA, JORDAN PA Unavailable Unavailable MADINA, JORDAN PA Unavailable Unavailable MADINA, JORDAN PA Unavailable Unavailable MADINA, JORDAN PA Unavailable Unavailable MADINA, JORDAN PA Unavailable Unavailable MADINA, JORDAN PA Unavailable Unavailable MADINA, JORDAN PA Unavailable Unavailable MADINA, JORDAN PA Unavailable Unavailable MADINA, JORDAN PA Unavailable Unavailable MADINA, JORDAN PA Unavailable Unavailable MADINA, JORDAN PA Unavailable Unavailable MADINA, JORDAN PA Unavailable Unavailable MADINA, JORDAN PA Unavailable Unavailable MADINA, JORDAN PA Unavailable Unavailable MADINA, JORDAN PA Unavailable Unavailable MADINA, JORDAN PA Unavailable Unavailable Moreno RIZO FINAL INSPECTOR AND TESTER Unavailable Unavailable Moreno RIZO FINAL INSPECTOR AND TESTER Unavailable Unavailable Moreno RIZO FINAL INSPECTOR AND TESTER Unavailable Unavailable Moreno RIZO FINAL INSPECTOR AND TESTER Unavailable Unavailable Moreno RIZO FINAL INSPECTOR AND TESTER Unavailable Unavailable Moreno RIZO FINAL INSPECTOR AND TESTER Unavailable Unavailable Moreno RIZO FINAL INSPECTOR AND TESTER Unavailable Unavailable Moreno RIZO LUZ MARIA FINAL INSPECTOR AND TESTER Unavailable Unavailable Moreno RIZO LUZ MARIA FINAL INSPECTOR AND TESTER Unavailable Unavailable Moreno RIZO LUZ MARIA FINAL INSPECTOR AND TESTER Unavailable Unavailable Moreno RIZO LUZ MARIA FINAL INSPECTOR AND TESTER Unavailable Unavailable Moreno RIZO LUZ MARIA FINAL INSPECTOR AND TESTER Unavailable Unavailable Moreno RIZOE FINAL INSPECTOR AND TESTER Unavailable Unavailable Morneo RIZO FINAL INSPECTOR AND TESTER Unavailable Unavailable Moreno RIZO LUZ MARIA FINAL INSPECTOR AND TESTER Unavailable Unavailable Moreno RIZO LUZ MARIA FINAL INSPECTOR AND TESTER Unavailable Unavailable Moreno RIZO LUZ MARIA FINAL INSPECTOR AND TESTER Unavailable Unavailable Moreno RIZO LUZ MARIA FINAL INSPECTOR AND TESTER Unavailable Unavailable Moreno RIZO LUZ MARIA FINAL INSPECTOR AND TESTER Unavailable Unavailable RIZO, M LUZ MARIA FINAL INSPECTOR AND TESTER Unavailable Unavailable RIZO, M LUZ MARIA FINAL INSPECTOR AND TESTER Unavailable Unavailable RIZO, M LUZ MARIA FINAL INSPECTOR AND TESTER Unavailable Unavailable RIZO, M LUZ MARIA FINAL INSPECTOR AND TESTER Unavailable Unavailable RIZO, M LUZ MARIA FINAL INSPECTOR AND TESTER Unavailable Unavailable RIZO, M LUZ MARIA FINAL INSPECTOR AND TESTER Unavailable Unavailable RIZO, M LUZ MARIA FINAL INSPECTOR AND TESTER Unavailable Unavailable RIZO, M LUZ MARIA FINAL INSPECTOR AND TESTER Unavailable Unavailable RIZO, M LUZ MARIA FINAL INSPECTOR AND TESTER Unavailable Unavailable RIZO, M LUZ MARIA FINAL INSPECTOR AND TESTER Unavailable Unavailable RIZO, M LUZ MARIA FINAL INSPECTOR AND TESTER Unavailable Unavailable RIZO, M LUZ MARIA FINAL INSPECTOR AND TESTER Unavailable Unavailable RIZO, M LUZ MARIA FINAL INSPECTOR AND TESTER Unavailable Unavailable RIZO, M LUZ MARIA FINAL INSPECTOR AND TESTER Unavailable Unavailable RIZO, M LUZ MARIA FINAL INSPECTOR AND TESTER Unavailable Unavailable RIZO, M LUZ MARIA FINAL INSPECTOR AND TESTER Unavailable Unavailable RIZO, M LUZ MARIA FINAL INSPECTOR AND TESTER Unavailable Unavailable RIZO, M LUZ MARIA FINAL INSPECTOR AND TESTER Unavailable Unavailable RIZO, M LUZ MARIA FINAL INSPECTOR AND TESTER Unavailable Unavailable RIZO, M LUZ MARIA FINAL INSPECTOR AND TESTER Unavailable Unavailable RIZO, M LUZ MARIA FINAL INSPECTOR AND TESTER Unavailable Unavailable RIZO, M LUZ MARIA FINAL INSPECTOR AND TESTER Unavailable Unavailable RIZO, M LUZ MARIA FINAL INSPECTOR AND TESTER Unavailable Unavailable RIZO, M LUZ MARIA FINAL INSPECTOR AND TESTER Unavailable Unavailable RIZO, M LUZ MARIA FINAL INSPECTOR AND TESTER Unavailable Unavailable RIZO, M LUZ MARIA FINAL INSPECTOR AND TESTER Unavailable Unavailable RIZO, M LUZ MARIA FINAL INSPECTOR AND TESTER Unavailable Unavailable RIZO, M LUZ MARIA FINAL INSPECTOR AND TESTER Unavailable Unavailable RIZO, M LUZ MARIA FINAL INSPECTOR AND TESTER Unavailable Unavailable RIZO, M LUZ MARIA FINAL INSPECTOR AND TESTER Unavailable Unavailable RIZO, M LUZ MARIA FINAL INSPECTOR AND TESTER Unavailable Unavailable RIZO, M LUZ MARIA FINAL INSPECTOR AND TESTER Unavailable Unavailable RIZO, M LUZ MARIA FINAL INSPECTOR AND TESTER Unavailable Unavailable RIZO, M LUZ MARIA FINAL INSPECTOR AND TESTER Unavailable Unavailable RIZO, M LUZ MARIA FINAL INSPECTOR AND TESTER Unavailable Unavailable RIZO, M LUZ MARIA FINAL INSPECTOR AND TESTER Unavailable Unavailable RIZO, M LUZ MARIA FINAL INSPECTOR AND TESTER Unavailable Unavailable RIZO, M LUZ MARIA FINAL INSPECTOR AND TESTER Unavailable Unavailable RIZO, M LUZ MARIA FINAL INSPECTOR AND TESTER Unavailable Unavailable JOVANA ADKINS MD Unavailable Unavailable JOVANA ADKINS MD Unavailable Unavailable JOVANA ADKINS MD Unavailable Unavailable JOVANA ADKINS MD Unavailable Unavailable JOVANA ADKINS MD Unavailable Unavailable JOVANA ADKINS MD Unavailable Unavailable JOVANA ADKINS MD Unavailable Unavailable JOVANA ADKINS MD Unavailable Unavailable JOVANA ADKINS MD Unavailable Unavailable JOVANA ADKINS MD Unavailable Unavailable JOVANA ADKINS MD Unavailable Unavailable JOVANA ADKINS MD Unavailable Unavailable JOVANA ADKINS MD Unavailable Unavailable JOVANA ADKINS MD Unavailable Unavailable JOVANA ADKINS MD Unavailable Unavailable JOVANA ADKINS MD Unavailable Unavailable JOVANA ADKINS MD Unavailable Unavailable JEDJOVANA MD Unavailable Unavailable JEDJOVANA MD Unavailable Unavailable JEDJOVANA MD Unavailable Unavailable JED, JOVANA MILLAN Unavailable Unavailable JED, JOVANA MILLAN Unavailable Unavailable JED, JOVANA MILLAN Unavailable Unavailable JED, JOVANA MILLAN Unavailable Unavailable JED, JOVANA MILLAN Unavailable Unavailable JED, JOVANA MILLAN Unavailable Unavailable JED, JOVANA MILLAN Unavailable Unavailable JED, JOVANA MILLAN Unavailable Unavailable JED, JOVANA MILLAN Unavailable Unavailable JED, JOVANA MILLAN Unavailable Unavailable JED, JOVANA MILLAN Unavailable Unavailable JED, JOVANA MILLAN Unavailable Unavailable JED, JOVANA MILLAN Unavailable Unavailable JED, JOVANA MILLAN Unavailable Unavailable JED, JOVANA MILLAN Unavailable Unavailable JED, JOVANA MILLAN Unavailable Unavailable JED, JOVANA MILLAN Unavailable Unavailable JED, JOVANA MILLAN Unavailable Unavailable JED, JOVANA MILLAN Unavailable Unavailable JED, JOVANA MILLAN Unavailable Unavailable JED, JOVANA MILLAN Unavailable Unavailable JED, JOVANA MILLAN Unavailable Unavailable JED, JOVANA MILLAN Unavailable Unavailable JED, JOVANA MILLAN Unavailable Unavailable JED, JOVANA MILLAN Unavailable Unavailable JED, JOVANA MILLAN Unavailable Unavailable JED, JOVANA MD Unavailable Unavailable JED, JOVANA MILLAN Unavailable Unavailable JED, JOVANA MILLAN Unavailable Unavailable JED, JOVANA MILLAN Unavailable Unavailable JED, JOVANA MILLAN Unavailable Unavailable JED, JOVANA MILLAN Unavailable Unavailable JED, JOVANA MILLAN Unavailable Unavailable JED, JOVANA MILLAN Unavailable Unavailable Rachel SCOTT MD Unavailable Unavailable Rachel SCOTT MD Unavailable Unavailable Rachel SCOTT MD Unavailable Unavailable Rachel SCOTT MD Unavailable Unavailable Rachel SCOTT MD Unavailable Unavailable Rachel SCOTT MD Unavailable Unavailable Rachel SCOTT MD Unavailable Unavailable Rachel SCOTT MD Unavailable Unavailable Rachel SCOTT MD Unavailable Unavailable Rahcel SCOTT MD Unavailable Unavailable Rachel SCOTT MD Unavailable Unavailable Rachel SCOTT MD Unavailable Unavailable Rachel SCOTT MD Unavailable Unavailable Rachel SCOTT MD Unavailable Unavailable Rachel SCOTT MD Unavailable Unavailable Rachel SCOTT MD Unavailable Unavailable Rachel SCOTT MD Unavailable Unavailable Rachel SCOTT MD Unavailable Unavailable Rachel SCOTT MD Unavailable Unavailable Rachel SCOTT MD Unavailable Unavailable Rachel SCOTT MD Unavailable Unavailable Rachel SCOTT MD Unavailable Unavailable Rachel SCOTT MD Unavailable Unavailable Rachel SCOTT MD Unavailable Unavailable Rachel SCOTT MD Unavailable Unavailable Rachel SCOTT MD Unavailable Unavailable Rachel SCOTT MD Unavailable Unavailable Rachel SCOTT MD Unavailable Unavailable Rachel SCOTT MD Unavailable Unavailable Rachel SCOTT MD Unavailable Unavailable Rachel SCOTT MD Unavailable Unavailable Rachel SCOTT MD Unavailable Unavailable Rachel SCOTT MD Unavailable Unavailable Rachel SCOTT MD Unavailable Unavailable Rachel SCOTT MD Unavailable Unavailable Rachel SCOTT MD Unavailable Unavailable Rachel SCOTT MD Unavailable Unavailable Rachel SCOTT MD Unavailable Unavailable Rachel SCOTT MD Unavailable Unavailable Rachel SCOTT MD Unavailable Unavailable Rachel SCOTT MD Unavailable Unavailable Rachel SCOTT MD Unavailable Unavailable Rachel SCOTT MD Unavailable Unavailable Rachel SCOTT MD Unavailable Unavailable Rachel SCOTT MD Unavailable Unavailable Rachel SCOTT MD Unavailable Unavailable Rachel SCOTT MD Unavailable Unavailable Rachel SCOTT MD Unavailable Unavailable Rachel SCOTT MD Unavailable Unavailable Rachel SCOTT MD Unavailable Unavailable Rachel SCOTT MD Unavailable Unavailable Rachel SCOTT MD Unavailable Unavailable Rachel SCOTT MD Unavailable Unavailable Rachel SCOTT MD Unavailable Unavailable Rachel SCOTT MD Unavailable Unavailable Rachel SCOTT MD Unavailable Unavailable Rcahel SCOTT MD Unavailable Unavailable Rachel SCOTT MD Unavailable Unavailable Rachel SCOTT MD Unavailable Unavailable Rachel SCOTT MD Unavailable Unavailable aRchel SCOTT MD Unavailable Unavailable Rachel SCOTT MD Unavailable Unavailable Rachel SCOTT MD Unavailable Unavailable Rachel SCOTT MD Unavailable Unavailable Rachel SCOTT MD Unavailable Unavailable Rachel SCOTT MD Unavailable Unavailable Rachel SCOTT MD Unavailable Unavailable Rachel SCOTT MD Unavailable Unavailable Rachel SCOTT MD Unavailable Unavailable Rachel SCOTT MD Unavailable Unavailable Rachel SCOTT MD Unavailable Unavailable Rachel SCOTT MD Unavailable Unavailable Rachel SCOTT MD Unavailable Unavailable Rachel SCOTT MD Unavailable Unavailable Rachel SCOTT MD Unavailable Unavailable Rachel SCOTT MD Unavailable Unavailable Verbeck Jr, Julian Issac PA Unavailable Unavailable Verbeck Jr, Julian Issac PA Unavailable Unavailable Verbeck Jr, Union Star Issac PA Unavailable Unavailable Verbeck Jr, Julian Issac PA Unavailable Unavailable Verbeck Jr, Julian Issac PA Unavailable Unavailable Verbeck Jr, Union Star Issac PA Unavailable Unavailable Verbeck Jr, Union Star Issac PA Unavailable Unavailable Verbeck Jr, Union Star Issac PA Unavailable Unavailable Verbeck Jr, Union Star Issac PA Unavailable Unavailable Verbeck Jr, Union Star Issac PA Unavailable Unavailable Verbeck Jr, Union Star Issac PA Unavailable Unavailable Verbeck Jr, Julian Issac PA Unavailable Unavailable Verbeck Jr, Union Star Issac PA Unavailable Unavailable Verbeck Jr, Union Star Issac PA Unavailable Unavailable Verbeck Jr, Union Star Issac PA Unavailable Unavailable Verbeck Jr, Union Star Issac PA Unavailable Unavailable Verbeck Jr, Union Star Issac PA Unavailable Unavailable Verbeck Jr, Union Star Issac PA Unavailable Unavailable Verbeck Jr, Union Star Issac PA Unavailable Unavailable Verbeck Jr, Union Star Issac PA Unavailable Unavailable Verbeck Jr, Union Star Issac PA Unavailable Unavailable Verbeck Jr, Union Star Issac PA Unavailable Unavailable Verbeck Jr, Union Star Issac PA Unavailable Unavailable Verbeck Jr, Union Star Issac PA Unavailable Unavailable Verbeck Jr, Union Star Issac PA Unavailable Unavailable Verbeck Jr, Julian Issac PA Unavailable Unavailable Verbeck Jr, Union Star Issac PA Unavailable Unavailable Verbeck Jr, Union Star Issac PA Unavailable Unavailable Verbeck Jr, Union Star Issac PA Unavailable Unavailable Verbeck Jr, Union Star Issac PA Unavailable Unavailable Verbeck Jr, Union Star Issac PA Unavailable Unavailable Verbeck Jr, Julian Issac PA Unavailable Unavailable Verbeck Jr, Julian Issac PA Unavailable Unavailable Verbeck Jr, Union Star Issac PA Unavailable Unavailable Friedman, Bri Lili PA Unavailable Unavailable Friedman, Bri Lili PA Unavailable Unavailable Friedman, Bri Lili PA Unavailable Unavailable Friedman, Bri Lili PA Unavailable Unavailable Friedman, Bri Lili PA Unavailable Unavailable Friedman, Bri Lili PA Unavailable Unavailable Friedman, Bri Lili PA Unavailable Unavailable Friedman, Bri Lili PA Unavailable Unavailable Friedman, Bri Lili PA Unavailable Unavailable Friedman, Bri Lili PA Unavailable Unavailable Roberto Saab MD Unavailable Unavailable Roberto Saab MD Unavailable Unavailable Roberto Saab MD Unavailable Unavailable Roberto Saab MD Unavailable Unavailable Roberto Saab MD Unavailable Unavailable Roberto Saab MD Unavailable Unavailable Roberto Saab MD Unavailable Unavailable Roberto Saab MD Unavailable Unavailable Roberto Saab MD Unavailable Unavailable Roberto Saab MD Unavailable Unavailable Roberto Saab MD Unavailable Unavailable Roberto Saab MD Unavailable Unavailable Roberto Saab MD Unavailable Unavailable Roberto Saab MD Unavailable Unavailable Roberto Saab MD Unavailable Unavailable Roberto Saab MD Unavailable Unavailable Roberto Saab MD Unavailable Unavailable Roberto Saab MD Unavailable Unavailable Roberto Saab MD Unavailable Unavailable Roberto Saab MD Unavailable Unavailable Roberto Saab MD Unavailable Unavailable Roberto Saab MD Unavailable Unavailable Roberto Saab MD Unavailable Unavailable Roberto Saab MD Unavailable Unavailable Roberto Saab MD Unavailable Unavailable Roberto Saab MD Unavailable Unavailable Roberto Saab MD Unavailable Unavailable Roberto Saab MD Unavailable Unavailable Roberto Saab MD Unavailable Unavailable Roberto Saab MD Unavailable Unavailable Roberto Saba MD Unavailable Unavailable SaabRoberto MD Unavailable Unavailable SaabRoberto MD Unavailable Unavailable Saab, Roberto Pardo MD Unavailable Unavailable Saab, Roberto Pardo MD Unavailable Unavailable Saab, Roberto Pardo MD Unavailable Unavailable Saab, Roberto Pardo MD Unavailable Unavailable Saab, Roberto Pardo MD Unavailable Unavailable Saab, Roberto Pardo MD Unavailable Unavailable Saab, Roberto Pardo MD Unavailable Unavailable Saab, Roberto Pardo MD Unavailable Unavailable SaabRoberto MD Unavailable Unavailable Saab, Roberto Pardo MD Unavailable Unavailable Saab, Roberto Pardo MD Unavailable Unavailable Saab, Roberto Pardo MD Unavailable Unavailable Saab, Roberto Pardo MD Unavailable Unavailable Saab, Roberto Pardo MD Unavailable Unavailable Saab, Roberto Pardo MD Unavailable Unavailable Saab, Roberto Pardo MD Unavailable Unavailable Saab, Roberto Pardo MD Unavailable Unavailable Saab, Roberto Pardo MD Unavailable Unavailable Saab, Roberto Pardo MD Unavailable Unavailable Saab, Roberto Pardo MD Unavailable Unavailable Saab, Roberto Pardo MD Unavailable Unavailable Saab, Roberto Pardo MD Unavailable Unavailable Saab, Roberto Pardo MD Unavailable Unavailable Saab, Roberto Pardo MD Unavailable Unavailable Saab, Roberto Pardo MD Unavailable Unavailable SaabRoberto MD Unavailable Unavailable SaabRoberto MD Unavailable Unavailable SaabRoberto MD Unavailable Unavailable SaabRoberto MD Unavailable Unavailable SaabRoberto MD Unavailable Unavailable SaabRoberto MD Unavailable Unavailable SaabRoberto MD Unavailable Unavailable SaabRoberto MD Unavailable Unavailable SaabRoberto MD Unavailable Unavailable SaabRoberto MD Unavailable Unavailable SaabRoberto MD Unavailable Unavailable SaabRoberto MD Unavailable Unavailable SaabRoberto MD Unavailable Unavailable Saab, Roberto Pardo MD Unavailable Unavailable SaabRoberto MD Unavailable Unavailable SaabRoberto MD Unavailable Unavailable SaabRoberto MD Unavailable Unavailable Roberto Saab MD Unavailable Unavailable Roberto Saab MD Unavailable Unavailable Roberto Saab MD Unavailable Unavailable Roberto Saab MD Unavailable Unavailable SaabRoberto MD Unavailable Unavailable SaabRoberto MD Unavailable Unavailable SaabRoberto MD Unavailable Unavailable SaabRoberto MD Unavailable Unavailable SaabRoberto MD Unavailable Unavailable SaabRoberto MD Unavailable Unavailable SaabRoberto MD Unavailable Unavailable SaabRoberto MD Unavailable Unavailable Roberto Saab MD Unavailable Unavailable SabaRoberto MD Unavailable Unavailable SaabRoberto MD Unavailable Unavailable SaabRoberto MD Unavailable Unavailable SaabRoberto MD Unavailable Unavailable SaabRoberto MD Unavailable Unavailable SaabRoberto MD Unavailable Unavailable SaabRoberto MD Unavailable Unavailable Roberto Saab MD Unavailable Unavailable Roberto Saab MD Unavailable Unavailable Roberto Saab MD Unavailable Unavailable Roberto Saab MD Unavailable Unavailable SaabRoberto MD Unavailable Unavailable SaabRoberto MD Unavailable Unavailable SaabRoberto MD Unavailable Unavailable Re-disclosure Warning The records that you are about to access may contain information from federally-assisted alcohol or drug abuse programs. If such information is present, then the following federally mandated warning applies: This information has been disclosed to you from records protected by federal confidentiality rules (42 CFR part 2). The federal rules prohibit you from making any further disclosure of this information unless further disclosure is expressly permitted by the written consent of the person to whom it pertains or as otherwise permitted by 42 CFR part 2. A general authorization for the release of medical or other information is NOT sufficient for this purpose. The Federal rules restrict any use of the information to criminally investigate or prosecute any alcohol or drug abuse patient.The records that you are about to access may contain highly sensitive health information, the redisclosure of which is protected by Article 27-F of the [facility] Public Health law. If you continue you may have access to information: Regarding HIV / AIDS; Provided by facilities licensed or operated by the [facility] Office of Mental Health; or Provided by the [facility] Office for People With Developmental Disabilities. If such information is present, then the following [facility] mandated warning applies: This information has been disclosed to you from confidential records which are protected by state law. State law prohibits you from making any further disclosure of this information without the specific written consent of the person to whom it pertains, or as otherwise permitted by law. Any unauthorized further disclosure in violation of state law may result in a fine or half-way sentence or both. A general authorization for the release of medical or other information is NOT sufficient authorization for further disc losure. Family History Family Member Name Family Member Gender Family Member Status Date o f Status Description Data Source(s) Unknown Unknown Problem MEDENT ([facility]) Encounters Encounter Providers Location Date Indications Data Source(s ) Outpatient Attender: IKER SCOTT MD [place] [facility] 01/2021 02:40:00 PM EST MEDENT ([facility] Outpatient [address] [facility] [address] 03/26/2020 12:00:00 AM EST eCW1 ([facility]) Outpatient Attender: JOVANA ADKINS MDReferrer: JOVANA SOLER .[email or web address].PETER 03/01/2020 03:00:32 PM EST - 03/01/2020 05:08:57 PM EST [facility] Outpatient Attender: JOVANA ADKINS MDReferrer: JOVANA PAGANSJP.PETER 03/01/2020 02:58:11 PM EST - 03/01/2020 05:08:42 PM EST [facility] Outpatient Attender: Carlos A DAVIS [place] [facility] 01:00:00 PM EST [facility] Outpatient Attender: Edvin Payne/Alec/Sean/Griffin delatorre 01/30/2020 01:15:00 PM EST MEDENT ([facility] Outpatient Attender: Misty [place] [facility] 01/03/2020 02:15:00 PM EST MED[facility] ([facility] Outpatient Attender: JOVANA BERGERONSJPPhilPETER 12:00:00 AM EST - 12/29/2019 09:10:07 AM EST [facility] Outpatient Attender: JORDAN mora 12/28/2019 12:00:00 PM EST MEDENT ([facility] Outpatient Attender: Misty Meadei ce 10/31/2019 03:15:00 PM EDT MED[facility] ([facility] Outpatient Attender: Misty [place] [facility] 09/26/2019 03:00:00 PM EDT MED[facility] ([facility] Outpatient Attender: Misty [facility]i [facility] 09/07/2019 03:00:00 PM EDT MED[facility] ([facility] Outpatient Attender: Misty Meadei ce 2019 03:00:00 PM EDT MED[facility] ([facility] Outpatient Referrer: Edvin Saab MD 06/27/2019 04:32:0 0 PM EDT [facility] Outpatient Referrer: Edivn Saab MD 06/27/2019 02:04:0 0 PM EDT [facility] Outpatient Attender: IKER SCOTT MD [place] [facility] 01:00:00 PM EDT MEDENT ([facility] Outpatient Attender: LUZ MARIA RIZO NP [place] [facility] 05/07 02:30:00 PM EDT MEDENT ([facility] Outpatient Attender: Issac Thomas Jr [place] [facility] 04/2019 02:00:00 PM EST MEDENT ([facility] Outpatient Referrer: IKER SCOTT MD 04/06/2019 08:32:00 AM EST [facility] Outpatient Referrer: IKER SCOTT MD 04/05/2019 09:24:00 AM EST [facility] Outpatient Referrer: IKER SCOTT MD 04/04/2019 03:28:00 PM EST [facility] Outpatient Attender: IKER SCOTT MD [place] [facility] 11/2019 01:45:00 PM EST MEDENT ([facility] Outpatient Attender: Lili robertson 04/02/2019 03:30:00 PM EST MED[facility] ([facility] Immunizations Vaccine Date Status Description Data Source(s) New in 2011. IIV4 12/21/2019 01:59:00 PM EDT completed MEDENT ([facility] New in 2012. IIV4 10/31/2019 03:53:00 PM EDT completed [facility] ([facility] Medications Medication Brand Name Start Date Product Form Dose Route Admi nistrative Instructions Pharmacy Instructions Status Indications Reaction Description Data Source(s) buspirone hydrochloride 15 MG Oral Tablet BUSPIRONE HCL 04/03/2020 12:00:00 AM EST tablet 45 TAKE 1 TABLET BY MOUTH EVERY 12 HOURS WITH 1/2 TABLET AT NOONTIME TAKE 1 TABLET BY MOUTH EVERY 12 HOURS WITH 1/2 TABLET AT NOONTIME SOLD: 04/05/2020 [facility] Omeprazole 20 MG Delayed Release Oral Tablet Omeprazole 02/19/2020 12:00:00 AM EST ORAL active MEDENT ([facility] Omeprazole 20 MG Delayed Release Oral Capsule Omeprazole 02/19/2020 12:00:00 AM EST ORAL completed MEDENT ([facility] buspirone hydrochloride 15 MG Oral Tablet BUSPIRONE HCL 02/06/2020 12:00:00 AM EST tablet 45 TAKE ONE TABLET BY MOUTH FROILAN RY 12 HOURS WITH 1/2 TABLET AT NOON TAKE ONE TABLET BY MOUTH EVERY 12 HOURS WITH 1/2 TABLET AT NOON SOLD: 02/09/2020 [facility] buspirone hydrochloride 15 MG Oral Tablet BUSPIRONE HCL 02/06/2020 12:00:00 AM EST tablet 45 TAKE ONE TABLET BY MOUTH FROILAN RY 12 HOURS WITH 1/2 TABLET AT NOON TAKE ONE TABLET BY MOUTH EVERY 12 HOURS WITH 1/2 TABLET AT NOON SOLD: 03/16/2020 [facility] buspirone hydrochloride 15 MG Oral Tablet BUSPIRONE HCL 02/06/2020 12:00:00 AM EST tablet 45 TAKE ONE TABLET BY MOUTH FROILAN RY 12 HOURS WITH 1/2 TABLET AT NOON TAKE ONE TABLET BY MOUTH EVERY 12 HOURS WITH 1/2 TABLET AT NOON SOLD: 02/24/2020 [facility] 20 mg 01/16/2020 12:00:00 AM EST capsule,delayed release (DR/EC) 30 TAKE ONE CAPSULE BY MOUTH EVERY DAY TAKE ONE CAPSULE BY MOUTH EVERY DAY SOLD: 01/17/2020 [facility] 20 mg 01/16/2020 12:00:00 AM EST capsule,delayed release (DR/EC) 30 TAKE ONE CAPSULE BY MOUTH EVERY DAY TAKE ONE CAPSULE BY MOUTH EVERY DAY SOLD: 02/14/2020 [facility] Omeprazole 20 MG Delayed Release Oral Capsule Omeprazole 01/03/2020 12:00:00 AM EST ORAL completed MEDENT ([facility] Prednisone 20 MG Oral Tablet Prednisone 12/28/2019 12:00:00 AM EST ORAL active MEDENT ([facility]) Omeprazole 20 MG Delayed Release Oral Ca psule omeprazole (PRILOSEC) 20 MG capsule omeprazole (PRILOSEC) 20 MG capsule 12/24/2019 12:00:00 AM EDT 20 mg Oral active Take 20 mg by mouth daily [facility] Sucralfate 1000 MG Oral Tablet sucralfate (CARAFATE) 1 g tablet sucralfate (CARAFATE) 1 g tablet 12/24/2019 12:00:00 AM EDT active TAKE ONE TABLET BY MOUTH FOUR TIMES A DAY [facility] 20 mg 12/24/2019 12:00:00 AM EDT capsule,delayed release (DR/EC) 30 TAKE ONE CAPSULE BY MOUTH EVERY DAY TAKE ONE CAPSULE BY MOUTH EVERY DAY SOLD: 12/25/2019 [facility] 1 gram 12/24/2019 12:00:00 AM EDT tablet 40 TAKE ONE TABLET BY MOUTH FOUR TIMES A DAY TAKE ONE TABLET BY MOUTH FOUR TIMES A DAY SOLD: 12/25/2019 [facility] buspirone hydrochloride 15 MG Oral Tablet BUSPIRONE HCL 11/25/2019 12:00:00 AM EDT tablet 90 TAKE ONE TABLET BY MOUTH THR EE TIMES A DAY TAKE ONE TABLET BY MOUTH THREE TIMES A DAY SOLD: 11/28/2019 [facility] buspirone hydrochloride 15 MG Oral Tablet busPIRone (B USPAR) 15 MG tablet busPIRone (BUSPAR) 15 MG tablet 11/25/2019 12:00:00 AM EDT 15 mg O ral active Take 15 mg by mouth 3 (three) ti mes a day [facility] 14 ACTUAT fluticasone furoate 0.1 MG/ACT UAT Dry Powder Inhaler [Arnuity] ARNUITY ELLIPTA 100 MCG/ACT AEPB ARNUITY ELLIPTA 100 MCG/ACT AEPB 10/23/2019 12:00:00 AM EDT active INHALE ONE PUFF B Y MOUTH EVERY DAY [facility] buspirone hydrochloride 15 MG Oral Tablet Buspirone HCL 10/20/2019 12:00:00 AM EDT ORAL active [facility] ([facility] buspirone hydrochloride 30 MG Oral Tablet BUSPIRONE HCL 09/22/2019 12:00:00 AM EDT tablet 60 TAKE ONE TABLET BY MOUTH TWI CE A DAY TAKE ONE TABLET BY MOUTH TWICE A DAY SOLD: 09/22/2019 [facility] buspirone hydrochloride 30 MG Oral Tablet Buspirone HCL 09/19/2019 12:00:00 AM EDT ORAL completed MEDENT ([facility] Witmagali Miranda 500 MG/ML Medicated Pad [facility] Med[facility] Kavita Dorsey l 2019 12:00:00 AM EDT active M EDENT ([facility] Hydrocortisone 10 MG/ML Rectal Cream Hydrocortisone (Periana l) 2019 12:00:00 AM EDT completed MEDENT ([facility] buspirone hydrochloride 15 MG Oral Tablet BUSPIRONE HCL 05/19/2019 12:00:00 AM EDT tablet 90 TAKE ONE TABLET BY MOUTH THR EE TIMES A DAY TAKE ONE TABLET BY MOUTH THREE TIMES A DAY SOLD: 05/19/2019 [facility] buspirone hydrochloride 15 MG Oral Tablet BUSPIRONE HCL 05/19/2019 12:00:00 AM EDT tablet 90 TAKE ONE TABLET BY MOUTH THR EE TIMES A DAY TAKE ONE TABLET BY MOUTH THREE TIMES A DAY SOLD: 07/11/2019 [facility] buspirone hydrochloride 15 MG Oral Tablet BUSPIRONE HCL 05/19/2019 12:00:00 AM EDT tablet 90 TAKE ONE TABLET BY MOUTH THR EE TIMES A DAY TAKE ONE TABLET BY MOUTH THREE TIMES A DAY SOLD: 10/29/2019 [facility] buspirone hydrochloride 15 MG Oral Tablet BUSPIRONE HCL 05/19/2019 12:00:00 AM EDT tablet 90 TAKE ONE TABLET BY MOUTH THR EE TIMES A DAY TAKE ONE TABLET BY MOUTH THREE TIMES A DAY SOLD: 08/25/2019 [facility] Alprazolam 0.5 MG Oral Tablet ALPRAZOLAM 05/18/2019 12:00:00 AM EDT ta blet 30 TAKE ONE TABLET BY MOUTH EVERY DAY NEEDED MAXIMUM DAILY DOSE = 3 TAKE ONE TABLET BY MOUTH EVERY DAY NEEDED MAXIMUM DAILY DOSE = 3 SOLD: 05/19/2019 [facility] Alprazolam 0.5 MG Oral Tablet ALPRAZOLAM 05/09/2019 12:00:00 AM EDT ta blet 14 TAKE ONE TABLET BY MOUTH THREE TIMES A DAY NEEDED * MAXIMUM DAILY DOSE = 3 TAKE ONE TABLET BY MOUTH THREE TIMES A DAY NEEDED * MAXIMUM DAILY DOSE = 3 SOLD: 05/09/2019 [facility] Ondansetron 4 MG Oral Tablet Ondansetron HCL 05/08/2019 12:00:00 AM E DT ORAL active [facility] ([facility] 4 mg 05/08/2019 12:00:00 AM EDT tablet 30 TAKE 1 TABLET BY MOUTH EVERY 4 TO 6 HOURS NEEDED FOR NAUSEA TAKE 1 TABLET BY MOUTH EVERY 4 TO 6 HOUR S NEEDED FOR NAUSEA SOLD: 05/08/2019 [facility] Alprazolam 0.5 MG Oral Tablet ALPRAZOLAM 05/06/2019 12:00:00 AM EDT ta blet 9 TAKE ONE TABLET BY MOUTH THREE TIMES A DAY NEEDED ANXIETY MAXIMUM DAILY DOSE = 3 TAKE ONE TABLET BY MOUTH THREE TIMES A D AY NEEDED ANXIETY MAXIMUM DAILY DOSE = 3 SOLD: 05/07/2019 [facility] 50 mcg/actuation 05/06/2019 12:00:00 AM EDT spray,suspension 16 INSTILL 2 SPRAYS EACH NOSTRIL ONCE DAILY INSTILL 2 SPRAYS EACH NOSTRIL ONCE DAILY SOLD: 05/07/2019 [facility] buspirone hydrochloride 15 MG Oral Tablet BUSPIRONE HCL 04/25/2019 12:00:00 AM EST tablet 60 TAKE ONE TABLET BY MOUTH TWI CE A DAY TAKE ONE TABLET BY MOUTH TWICE A DAY SOLD: 04/25/2019 [facility] buspirone hydrochloride 15 MG Oral Tablet Buspirone HCL 04/25/2019 12:00:00 AM EST ORAL completed [facility] ([facility] 10 mg 04/03/2019 12:00:00 AM EST tablet 20 TAKE ONE TABLET BY MOUTH FOUR TIMES A DAY NEEDED WITH FOOD TAKE ONE TABLET BY MOUTH FOUR TIMES A DA Y NEEDED WITH FOOD SOLD: 04/03/2019 [facility] Toradol Injection Per 15 MG(30 MG) 04/02/2019 12:00:00 AM EST completed MEDENT ([facility]) Medication administered onsite buspirone hydrochloride 10 MG Oral Tablet BUSPIRONE HCL 10/20/2018 12:00:00 AM EDT tablet 60 TAKE ONE TABLET BY MOUTH TWI CE A DAY TAKE ONE TABLET BY MOUTH TWICE A DAY SOLD: 03/20/2019 [facility] buspirone hydrochloride 10 MG Oral Tablet BUSPIRONE HCL 10/20/2018 12:00:00 AM EDT tablet 60 TAKE ONE TABLET BY MOUTH TWI CE A DAY TAKE ONE TABLET BY MOUTH TWICE A DAY SOLD: 02/18/2019 [facility] Insurance Providers Payer name Policy type / Coverage type Policy ID Covered libertarian ID Covered libertarian's relationship to batista Policy Batista Plan Information UMR [facility] [id number] SP [id number] UMR [id number] [place] [id number] UMR [facility] [id number] SP [id number] UMR [id number] UMR O [id number] O [id number] Umr Commercial [id number] Self [id number] [employer] Medigap Part B [id number] Self [id number] Umr/Uhc[employer] Health Maintenance Organization (HMO) [id number] Self [id number] Umr[employer] Maintenance Organization (HMO) [id number] Self [id number] Umr[employer] Maintenance Organization (HMO) [id number] Self [id number] Umr Commercial [id number] Self [id number] Umr Commercial [id number] Self [id number] [employer]OMCO [id number] SP [id number] [employer] PPO O [id number] S [id number] POMCO U [id number] Self [id number] POMCO U [id number] Self [id number] [employer] Commercial [id number] Self [id number] POMCO [id number] SP [id number] [employer] Commercial [id number] Self [id number] [employer] Commercial Self POMCO-O/P [id number] 18 [id number] POMCO O [id number] S [id number] Problems, Conditions, and Diagnoses Code Display Name Description Problem Type Effective Dates Data Source(s) F41.9 Anxiety and depression Anxiety and depression [id number] 12/29/2019 12:00:[address] [facility] K21.9 Gastroesophageal reflux disease without esophagitis Gastroesophageal reflux disease without esophagitis [id number] 12/29/2019 12:00:00 AM [facility] J45.909 Uncomplicated asthma Uncomplicated asthma [id number] 12/29/2019 12:00:[address] [facility] R06.02 SOB (shortness of breath) on exertion SO B (shortness of breath) on exertion [id number] 12/29/2019 12:00:00 AM EST [facility] R07.2 Precordial pain Precordial pain [id number] 12/29/2019 12:0 0:00 AM EST [facility] [id number] Asthma Asthma Problem 09/07/2019 12:00:00 AM ED T RUPA ([facility] R06.02 Shortness of breath Shortness of breath Diagnosis 0 03/01/2020 02:58:11 PM EST [facility] R07.2 Precordial pain Precordial pain Diagnosis 03/01/2020 02:5 8:11 PM EST [facility] Surgeries/Procedures Procedure Description Date Indications Data Source(s) Medication: 1% Lidocaine Dilutent (xylocaine) 03/26/19 12:00:00 AM EST eCW1 ([facility]) Spirometry 01/30/2020 12:00:00 AM EST [place] MONTOYA ([facility] ) ECG ROUTINE ECG W/LEAST 12 LDS W/I&R POCT AMB EKG Routine 12/29/2019 9:11 AM EST Precordial pain 12/29/2019 02:11:00 PM EST Precordial pain [facility] Precordial pain Electrocardiogram Complete 09/07/2019 12:00:00 AM EDT RUPA ([facility] BLOOD COUNT COMPLETE AUTO&AUTO DIFRNTL WBC COUNT CBC AND DIFFER ENTIAL Routine 09/07/2019 09/07/2019 12:00:00 AM EDT [facility] THYROID STIMULATING HORMONE TSH TSH Routine 09/07/2019 09/07/2019 12:00:00 AM EDT [facility] HEPATIC FUNCTION PANEL HEPATIC FUNCTION PANEL Routine 09/07/2019 09/07/2019 12:00:00 AM EDT [facility] BASIC METABOLIC PANEL CALCIUM TOTAL BASIC METABOLIC PANEL Routine 09/07/2019 09/07/2019 12:00:00 AM EDT [facility] Therapeutic, Prophylactic Or Diagnostic Injection Subq/Im 04/02/2019 12:00:00 AM EST MEDENT ([facility] Results ID Date Data Source [id number] 03/03/2020 12:13:58 AM EST [facility] Name Value Range Interpretation Code Description Data Alicia rce(s) Supporting Document(s) &PDF Health system KDQUGe0qUjYFKeHt69/ORItyRRKae0EkJQwhCTh8QVimENEeE3KliXybPOmVSSzNWqeXVnnODAEhJVAj FcG [file] ICAgICAgICAgICAgICAgICAgICAgICAgICAgICAgICAgICAgICAgICAgICAgICAgICAgICAgICANCiAg ICAgICAgICAgICAgICAgICAgICAgICAgICAgICAgIC AgICAgICAgICAgICAgICAgICAgICAgICAgICAgICAgICAgICAgICAgICAgICAgICAgICAgICAgICAgIC AgICAgICANCiAgICAgICAgICAgICAgICAgICAgICAgICAgICAgICAgICAgICAgICAgICAgICAgICAgIC AgICAgICAgICAgICAgICAgICAgICAgICAgICAgICAg ICAgICAgICAgICAgICAgICANCiAgICAgICAgICAgICAgICAgICAgICAgICAgICAgICAgICAgICAgICAg ICAgICAgICAgICAgICAgICAgICAgICAgICAgICAgICAgICAgICAgICAgICAgICAgICAgICAgICAgICAN CiAgICAgICAgICAgICAgICAgICAgICAgICAgICAgIC AgICAgICAgICAgICAgICAgICAgICAgICAgICAgICAgICAgICAgICAgICAgICAgICAgICAgICAgICAgIC AgICAgICAgICANCiAgICAgICAgICAgICAgICAgICAgICAgICAgICAgICAgICAgICAgICAgICAgICAgIC AgICAgICAgICAgICAgICAgICAgICAgICAgICAgICAg ICAgICAgICAgICAgICAgICAgICANCiAgICAgICAgICAgICAgICAgICAgICAgICAgICAgICAgICAgICAg ICAgICAgICAgICAgICAgICAgICAgICAgICAgICAgICAgICAgICAgICAgICAgICAgICAgICAgICAgICAg ICANCiAgICAgICAgICAgICAgICAgICAgICAgICAgIC AgICAgICAgICAgICAgICAgICAgICAgICAgICAgICAgICAgICAgICAgICAgICAgICAgICAgICAgICAgIC AgICAgICAgICAgICANCiAgICAgICAgICAgICAgICAgICAgICAgICAgICAgICAgICAgICAgICAgICAgIC AgICAgICAgICAgICAgICAgICAgICAgICAgICAgICAg ICAgICAgICAgICAgICAgICAgICAgICANCiAgICAgICAgICAgICAgICAgICAgICAgICAgICAgICAgICAg ICAgICAgICAgICAgICAgICAgICAgICAgICAgICAgICAgICAgICAgICAgICAgICAgICAgICAgICAgICAg ICAgICANCjw/bWJmQ5pboINmysR0C0qeVm4ZJg1AGH 3do2EhZGIeZNdrtcIgVwuYAsHcJNRtVfgZZjh2ZSynOT2IwACoM1IwP7XcLJcqHX3TMRHiGEFhvQMnTZ XmUITkGaN1SBTgZQfqXI3CyFXlAQlkTTFoHYFbJtQnBDSnCZ0GCPShW223hzBkSw3NRo3LTzIoDN7nib 4UUyFaAGUaCzzJXai4PVmoYA7LxPGmC0HzwLClm7sC PfTrN3NKXCO7AFDiKy7DOWBsCmIbQEMlTFfaDG3uULVjCRHTlTvtesV4ER6KXP2ixnFvJX5WZbQzHy5v Eg2WBmAzW6HvG5ObISYoGWCSNOdxUI7WDKWeIIR7SSPmKQUfXESKZlDuR49yBZ6MN9Haz90eTcO7GJGv ZeAuMFbbCL97bKycigMynUJkfPphII9KVi4+DQplbm JcRuzKFuusSGHDFuPzRhoEKePsHDSlUOQnIQUoBaJ3ReFaOx3ZACVtWDPwDMJvEjByZFNoXKKjOSehKR HmGHQhZvSoALDiBRTuJY2YIhKtBHCnVwDyCESrJJIuSNQmwl9RFFCnMNWiKUZ4MXWgONDhYLVsZEhuFA EeAAQtAxO7DLPvISEoLR7YGsYtCNPmRLT6MDXyWDLi SYCvbj2LLPSgMNYwHJW1BWYmJWWdKQQiQLeqBWWiHBV0GzG3RPUwSRUzTO5BXuPoTAIvYMQ2WwbkTXXf JJNvef8QHOAfOFUqYLicMTWhVDYqBPEwQXwbUZXgUBC8COT6IANlKUPkOJ6JZsIyIOPuUKvrFzTvOQKo VHFill9MRHMvBEGiHcX4EmCmQHEvRIMvCZcoQKUhDR E5RVT8NBQwOOBcRT2CNrBjGQPpHBMeLLQzSAUaQQPkss0XVVJfGIEvIlUfNoGnSEPhEQWmFZbnWGFrFQ VwLFG2HOZlMDVeIP6KCoKoNOOvABIwWnjhHYJjEJSpfp1PXBTrAWXbVpCqIlRtERKvTESxDKtuPQCfBE U2PUQ9YELmONRpVN1SKmTyRZZdWIUfYBSgUHChQMJt kw1FJZOmJXTxTWWcFfAiSIQoSLYjHKjzVTGwYMZsKxArVSLfSMWhDD3DMzIcSISwCiSnHifoSVQgYFCc we4OSEMiMFUtJcC8OWGwFAWtMXDsLXerUTFnKFT3CYB4DPDvJASvPL2QMeXeFQnxEAQMPar0QWzoY0r8 PWYrBq5IN1Iso5EeNcVmGLMDCXvcSJ3uhfLnRHGdVj 1UT1uIIwueGkBqJps3YMP0MnLzYyClDDwgQRMpUgQ1CcFyU1FxEJ3zKKV1P4FmWKu6WVPsIkPbPcU4W8 Z2YHJdJYx4TZOfWWY8NlWuMC6HQj1HOxB7EMG6iAOoEr1HOjViQETPKyJmCW2OHEn= ID Date Data Source [id number] 03/02/2020 11:21:29 PM EST [facility] Name Value Range Interpretation Code Description Data Alicia rce(s) Supporting Document(s) &PDF Health system LLNUBz2vJiJFThOb80/QHGsvMBDvo4ZhTHcdHBk9MCdxPQQhO5SojDohSBnAOLeCQkrPHxkEPFMhKQGn waW IiX0glgMOvqqYEz6Lmx1LyvSpriniJOkOlFg8SGrMdMY9sua7GTKHoTN8hmd5HMSL7UV2FyRg9DXEbE3 IpLHQuOLQdc3UeMH7KPG5jdZekJhdpEO7+PKqpBLO5xfSrbY3UMHIsYkwuP9fG/16g/wOBRdEsEFvkkH MnXFMoyMN818ew8bPUO3Ei29sIJ3Vrsxl/vnNK+r3S gwGG0erjUi/yA4Ad5xi1XXHZ+ee/Ouf2hFTm/ry4AIl8md8Sk/5JjUJG8wAb0MvIkc19CNuQiHCvmBHB W4GK8/8iYr9Hce5enKg7FRrQqCHw/arV/+IrkSgExXQtP1W2Ccy8XNnxH7poCBpL3y66+3v2lyVR4Yud pY8B0aQwXFTDwqNgwaJTBwiLrpCCWxLsRYeF0G8W1F 7I0C7PvEhrPvXIL/XnJganA9T2b1NjjAxX/xU9WS5RXdLdGSb1PBuSbx+MaFeED07y+E8x7f7PlGpXdJ TaCYqkOGIwREjAThM85OVlYyWs82edl4LeBkzVAWg0sHinOd3izvIcdZbAlMYwtZKkypz/leonard+P2mL/9O [file] sales and service officer+gV4P8NhudX1NuwEILMDjuPdnL1XPpsotTWhg2Pfyczfxnr+kYp+3TFtJOfx0EWIEG+8RfgfSgu8S [file] EJSf2QNt+nJ91hncam6Jc8M4edlmiclr6PYsjq3yT5j5/Jz/food porter+CJpGVNhBH6c4cWp2BPnibwLeFK80q [file] DQogICAgICAgICAgICAgICAgICAgICAgICAgICAgIC AgICAgICAgICAgICAgICAgICAgICAgICAgICAgICAgICAgICAgICAgICAgICAgICAgICAgICAgICAgIC AgICAgICAgICAgDQogICAgICAgICAgICAgICAgICAgICAgICAgICAgICAgICAgICAgICAgICAgICAgIC AgICAgICAgICAgICAgICAgICAgICAgICAgICAgICAg ICAgICAgICAgICAgICAgICAgICAgDQogICAgICAgICAgICAgICAgICAgICAgICAgICAgICAgICAgICAg ICAgICAgICAgICAgICAgICAgICAgICAgICAgICAgICAgICAgICAgICAgICAgICAgICAgICAgICAgICAg ICAgDQogICAgICAgICAgICAgICAgICAgICAgICAgIC AgICAgICAgICAgICAgICAgICAgICAgICAgICAgICAgICAgICAgICAgICAgICAgICAgICAgICAgICAgIC AgICAgICAgICAgICAgDQogICAgICAgICAgICAgICAgICAgICAgICAgICAgICAgICAgICAgICAgICAgIC AgICAgICAgICAgICAgICAgICAgICAgICAgICAgICAg ICAgICAgICAgICAgICAgICAgICAgICAgDQogICAgICAgICAgICAgICAgICAgICAgICAgICAgICAgICAg ICAgICAgICAgICAgICAgICAgICAgICAgICAgICAgICAgICAgICAgICAgICAgICAgICAgICAgICAgICAg ICAgICAgDQogICAgICAgICAgICAgICAgICAgICAgIC AgICAgICAgICAgICAgICAgICAgICAgICAgICAgICAgICAgICAgICAgICAgICAgICAgICAgICAgICAgIC AgICAgICAgICAgICAgICAgDQogICAgICAgICAgICAgICAgICAgICAgICAgICAgICAgICAgICAgICAgIC AgICAgICAgICAgICAgICAgICAgICAgICAgICAgICAg ICAgICAgICAgICAgICAgICAgICAgICAgICAgDQogICAgICAgICAgICAgICAgICAgICAgICAgICAgICAg ICAgICAgICAgICAgICAgICAgICAgICAgICAgICAgICAgICAgICAgICAgICAgICAgICAgICAgICAgICAg ICAgICAgICAgDQogICAgICAgICAgICAgICAgICAgIC AgICAgICAgICAgICAgICAgICAgICAgICAgICAgICAgICAgICAgICAgICAgICAgICAgICAgICAgICAgIC BzFYTiCIPkBYIaFVOrJCGdCKFmWKs9R2bbHXUyIXRfUV1tELg8Mq1+BJcVCyJmLIR4vsFpaV7BUP0lv0 FnOJufZPKkt4TiDXn8CM1BMPVxBJslRL3XAXrwdo2R XWFnNUDesHLGx0aeUpOjAQL0XQPfSfqcWF9OOEKqI5jbutEiKOToEOZNNTpqASKJER4YHkLxT6RldL51 IDINCj4+TJtxwxTbLioFZwAdTWGlc5UrGOr5NT3BWKCvCOksWZ4XDSIykF4bEMckKI0LAcPwECRrZNHE WrKwI46pkSWrPVf3J0RyHzRjLHYbHgcwBJXoOHahFt FtZXMgWyBdDQogID4+ID4+UKxsCC3CRCofkkFxVFEjCl6OEOSdEKI0OSYogSZdNqqiQCXNXHlrUF5KzN HrLLN1fF7cROpxCOUsRJLjG2iDKhRyuUqnPG18aBjzoxGkeELsTUu+Mn7DEG0el4RxCJa0riRnYPaxYG ZiNCesQMRsEYFpBBWvGVO4AID6YUWNPsUrELNdRMSs FNgeRDIrQOBorx6PQNJhLKR1BzquHFKsPOMeYVEdPBxyDYIuUPP8PdTeJINsCMXjIU6UYiTlFCDzNXHc UCkxKCXlUEMuvu6PQCJdTAXzFoRrCYCgNGTyFVMfWXbiGANgUGPmXJA8KTQsQXKsYP6EYhPqJEMwFXB0 GntdBIVfYCHhuw5HTGTfNIKmBIc8SgCgKIGhLCFeBZ jdHPBmIJT2XFUwAGRiHMQiWD4QViIhSGNeDAG9HVapMBKmJZQovb3HGYRlHWWdTjP9NNZqUMTyKZCmJV uiWUCrBKN2WSU5UAHmVYOnME9MGgFjWGGsVJjuKODrSJLzZSSslg1XSZSkHIYyDMUzLUNmQWXcWJUkNX msMBCdEOWwQxh2EESqDRRzAZ0NGeOfTWFwXNC8CRCz ZKSxXEKeky2RDEVqUEBgAvntNwPtQXZzJXPsQAeeSJMtNSF9TVJyGQHcTAAxTD2KBdQiZUWjNLEiVVTt AHEyEVGjlp0ZPYXbKUNjVDJ4FdFqRTLzSZLlSAmnJXVmNPX0ZMO1ZCMhRYIbWT2YCdXzHJGrKSG4OFXc MJLwXDUtkh6XMRSwCGOiXPJ9ILLuLDWoPNWuSMtfBK IcEFL2TuHaEHAfPAHxBM8GCjQmGNNyYcB5LVTnHNLvAAUwqi8OQMCnGNCzQxY2KFUnDUScFJOyCYufYC KlWNYiVKL0IRCsSWMtPI1EYjAdGRVkYuU8CWDaVGPqIJSrzf1CBPGfQINqLrm6OkLtJLOgOAJjHMhkQD UsBUE8PMa0XIGfZRCeUP2QErLuDPOiVCGwIeYfHASk UFDhoo4BEOCeKSN5XSC9RNRaLMThCKQfCBxjOFPrFEJ1LVecZEHfUMVrHL2OMqZkRDYmHPNhQUBrPKEc EVYdte8MXHLcYHV6AmD0WrJjKBOqIKUoFKscNAXyNYF1SetmXIAuNKBkMQ9WOjYdGXMcOqV4SdObHQTk DPHrms3KQLMpBEC2FfmeADWySESgETHhWUtaTXPjJF E4DPYnRWKgLWSgIR5OXpJyIPVfErm5OOsrBQBeDLEapk0OoXVlwHaryy4MTAyGTl8QdFuoBRIqNPjwNb 2oaWE7OXErGXMFWn4CchBxFSXxHRNKJBgnBWCgIEl8CbhxQjbzAGKuLmbjOCEzVDB1D1JjElBvCWN4Cf J7HvL3WNJbQDPrNfI6BWN9FZO5DSD8KLzkQ8V5QrU6 NTVjNDU+VG3lOYl+Xg4[id number]== ID Date Data Source [id number] 01/30/2020 12:47:00 PM EST [facility] ([facility]) Name Value Range Interpretation Code Description Data Alicia rce(s) Supporting Document(s) PDFReport Laboratory test result [facility] ([facility]) FVC-Pred 3.33 L [facility] ([facility]) FVC-%Pred-Pre 118 L [facility] ([facility]) FVC-Pre 3.94 L [facility] ([facility]) Fev1-Pred 2.72 L [facility] ([facility]) FVC-LLN 2.69 L [facility] ([facility]) Fev1-Pre 3.11 L MEDENT ([facility]) Fev1-LLN 2.19 L MED[facility] ([facility]) Fev1-%Pred-Pre 114 L [facility] (Health system) Fev6-Pred 3.27 L [facility] ([facility] ) Fev6-Pre 3.94 L [facility] ([facility]) Fev6-%Pred-Pre 120 L [facility] (Health system) Fev6-LLN 2.65 L [facility] ([facility]) Cdz1wzf-Tjus 82 % [facility] ([facility]) Wdn6tyj-Bdn 79 % [facility] ([facility]) Wpw8cby-%Pred-Pre 96 % [facility] ([facility]) Nyf9xab-Gjhu 98 % [facility] ([facility]) Nyg5tca-Zuq 100 % [facility] ([facility]) Lcy4kga-NWV 72 % [facility] ([facility]) Osr1auj-%Pred-Pre 101 % [facility] ([facility]) FEFMax-Pre 5.00 L/E/sec [facility] ([facility]) FEFMax-Pred 6.51 L/E/sec [facility] (Health system) [id number] 2.93 L/E/sec [facility] ([facility]) FEFMax-%Pred-Pre 76 L/E/sec [facility] ([facility]) FEFMax-LLN 4.95 L/E/sec [facility] ([facility]) [id number]-Pfy 2.92 L/E/sec [facility] ([facility] ) Otu9750-%Pred-Pre 99 L/E/sec [facility] ([facility]) [id number] 1.80 L/E/sec [facility] (Health system) ExpTime-Pre 6.74 sec [facility] ([facility]) Ozm7xon9-Rbvh 84 % [facility] ([facility]) Wfa8hqt3-Hrv 79 % [facility] ([facility]) Rij5yfh6-%Pred-Pre 94 % [facility] ([facility]) Kya3mwe4-RTE 75 % [facility] ([facility], ) ID Date Data Source [id number] 12/28/2019 12:00:00 AM EST [facility] Name Value Range Interpretation Code Description Data Alicia rce(s) Supporting Document(s) SARS coronavirus 2 Ag [facility] This lab was ordered by [facility] and reported by [facility]. ID Date Data Source [id number] 12/24/2019 11:06:00 AM EST [facility] ([facility] Name Value Range Interpretation Code Description Data Alicia rce(s) Supporting Document(s) Laboratory test finding (navigational concept) 0.00 ng/mL 0 .00-0.08 Normal (applies to non-numeric results) [facility] ID Date Data Source [id number] 12/24/2019 11:06:00 AM EST [facility] ([facility] Name Value Range Interpretation Code Description Data Alicia rce(s) Supporting Document(s) Troponin I.cardiac [Mass/volume] in Serum or Plasma Laboratory test result [facility] ([facility] Laboratory test finding (navigational concept) 0.00 ng/mL 0 .00-0.08 Normal (applies to non-numeric results) [facility] ID Date Data Source [id number] 12/24/2019 09:07:00 AM EST [facility] ([facility] Name Value Range Interpretation Code Description Data Alicia rce(s) Supporting Document(s) Laboratory test finding (navigational concept) 0.00 ng/mL 0 .00-0.08 Normal (applies to non-numeric results) [facility] ([facility] ID Date Data Source [id number] 12/24/2019 09:07:00 AM EST [facility] ([facility] Name Value Range Interpretation Code Description Data Alicia rce(s) Supporting Document(s) Laboratory test finding (navigational concept) 0.00 ng/mL 0 .00-0.08 Normal (applies to non-numeric results) [facility] ([facility] Troponin I.cardiac [Mass/volume] in Serum or Plasma Laboratory test result [facility] ([facility] ID Date Data Source [id number] 12/24/2019 08:08:00 AM EST [facility] ([facility] Name Value Range Interpretation Code Description Data Alciia rce(s) Supporting Document(s) Lipoprotein lipase [Enzymatic activity/volume] in Serum or P lasma 129 U/L 73-393 Normal (applies to non-numeric results) [facility] ([facility] Thyrotropin [Units/volume] in Serum or Plasma 1.330 uIU/ML 0. 358-3.740 Normal (applies to non-numeric results) [facility] Natriuretic peptide.B prohormone N-Terminal [Mass/volu me] in Serum or Plasma 84 pg/mL Normal (applies to non-numeric results) [facility] ([facility] Choriogonadotropin.beta subunit ( test) [Pres ence] in Serum or Plasma Laboratory test result Normal (applies to non-numeric results) [facility] ([facility] Thyroxine (T4) free [Mass/volume] in Serum or Plasma 0.96 ng/dL 0.76-1.46 Normal (applies to non-numeric results) [facility] ID Date Data Source [id number] 12/24/2019 08:08:00 AM EST [facility] ([facility] Name Value Range Interpretation Code Description Data Alicia rce(s) Supporting Document(s) Glucose, Fasting 96 mg/dL 70-100 Normal (applies to non-numeric results) [facility] ([facility] Blood Urea Nitrogen 12 mg/dL 7-18 Normal (applies to non-nume ezequiel results) [facility] ([facility] Glomerular Filtration Rate 57.7 Below low normal [facility] ([facility] <content>Units are mL/min/1.73 m2</content>
<content></content>
<content>Chronic Kidney Disease Staging per NKF:</content>
<content></content>
<content>Stage I & II GFR >=60 Normal to Mildly Decreased</content>
<content>Stage III GFR 30- 59 Moderately Decreased</content>
<content>Stage IV GFR 15-29 Severely Decreased</content>
<content>Stage V GFR <15 Very Little GFR Left</content>
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
<content></content> Sodium Level 141 meq/L 136-145 Normal (applies to non-numeric res ults) [facility] ([facility] Creatinine For GFR 1.11 mg/dL 0.55-1.30 Normal (applies to non -numeric results) [facility] ([facility] Carbon Dioxide Level 27 meq/L 21-32 Normal (applies to non-num grace results) [facility] ([facility] Potassium Serum 3.9 meq/L 3.5-5.1 Normal (applies to non-numeric results) [facility] ([facility] Chloride Level 109 meq/L 98-107 Above high normal [facility] ([facility] Anion Gap 5 meq/L 8-16 Below low normal [facility] ( [facility] Calcium Level 8.8 mg/dL 8.5-10.1 Normal (applies to non-numeric re sults) [facility] ([facility] ID Date Data Source [id number] 12/24/2019 08:08:00 AM EST [facility] ([facility] Name Value Range Interpretation Code Description Data Alicia rce(s) Supporting Document(s) Alt/SGPT 15 U/L 12-78 Normal (applies to non-numeric resul ts) [facility] ([facility] Ast/Sgot 11 U/L 7-37 Normal (applies to non-numeric resul ts) [facility] ([facility] Alkaline Phosphatase 60 U/L 45-117 Normal (applies to non-num grace results) [facility] ([facility] Bilirubin,Total 0.5 mg/dL 0.2-1.0 Normal (applies to non-numeric results) [facility] ([facility] Bilirubin,Direct 0.1 mg/dL 0.0-0.2 Normal (applies to non-numeric results) [facility] ([facility] Total Protein 7.2 GM/DL 6.4-8.2 Normal (applies to non-numeric re sults) [facility] ([facility] Albumin/Globulin Ratio 1.3 1.2-2.2 Normal (applies to non-n umeric results) [facility] ([facility] Albumin 4.0 GM/DL 3.2-5.2 Normal (applies to non-numeric resul ts) [facility] ([facility] ID Date Data Source [id number] 12/24/2019 08:08:00 AM EST [facility] ([facility] Name Value Range Interpretation Code Description Data Alicia rce(s) Supporting Document(s) aPTT in Platelet poor plasma by Coagulation assay 27.9 s 24.2-38.5 Normal (applies to non-numeric results) [facility] ([facility] Fibrin D-dimer FEU [Mass/volume] in Platelet poor plasma Lab oratory test result Normal (applies to non-numeric results) [facility] ([facility] ID Date Data Source [id number] 12/24/2019 08:08:00 AM EST [facility] ([facility] Name Value Range Interpretation Code Description Data Alicia rce(s) Supporting Document(s) Inr 1.02 Normal (applies to non-numeric resul ts) [facility] ([facility] THERAPUTIC HUMAN INR VALUES INDICATIONS NORMAL RANGES PROPHYLAXIS/TREATMENT OF: VENOUS THROMBOSIS 2.0-3.0 PULMONARY EMBOLISM 2.0-3.0 PREVENTION OF SYSTEMIC EMBOLISM FROM: TISSUE HEART VALVES 2.0-3.0 ACUTE MYOCARDIAL INFARCTION 2.0-3.0 VALVULAR HEART DISEASE 2.0-3.0 ATRIAL FIBRILLATION 2.0-3.0 MECHANICAL VALVES(HIGH RISK) 2.5-3.5 RECURRENT MYOCARDIAL INFARCTION 2.5-3.5 Prothrombin Time 13.6 s 12.5-14.3 Normal (applies to non-numeric results) [facility] ([facility] ID Date Data Source [id number] 12/24/2019 08:08:00 AM EST [facility] ([facility] Name Value Range Interpretation Code Description Data Alicia rce(s) Supporting Document(s) White Blood Count 7.8 10 4.0-10.0 Normal (applies to non-numeri c results) [facility] ([facility] Hemoglobin 14.0 g/dL 12.0-15.5 Normal (applies to non-numeric resul ts) [facility] ([facility] Red Blood Count 4.64 10 4.00-5.40 Normal (applies to non-numeric results) [facility] ([facility] Mean Corpuscular Volume 94.6 fl 80.0-96.0 Normal ( applies to non-numeric results) [facility] ([facility] Hematocrit 43.9 % 36.0-47.0 Normal (applies to non-numeric resul ts) [facility] ([facility] Mean Corpuscular Hemoglobin 30.2 pg 27.0-33.0 Norm al (applies to non-numeric results) [facility] ([facility] Mean Corpuscular HGB Conc 31.9 g/dL 32.0-36.5 Below low normal [facility] ([facility] Red Cell Distribution Width 12.5 % 11.5-14.5 Norm al (applies to non-numeric results) [facility] ([facility] Neutrophils % 65.1 % 36.0-66.0 Normal (applies to non-numeric re sults) [facility] ([facility] Platelet Count, Automated 296 10 150-450 Normal (applies to non-numeric results) [facility] ([facility] Lymph % 25.1 % 24.0-44.0 Normal (applies to non-numeric resul ts) [facility] ([facility] [place] % 5.5 % 0.0-5.0 Above high normal [facility] ([facility] Baso % 0.6 % 0.0-1.0 Normal (applies to non-numeric resul ts) [facility] ([facility] Eos % 3.3 % 0.0-3.0 Above high normal [facility] ([facility] Neutrophils # 5.1 10 1.5-8.5 Normal (applies to non-numeric re sults) [facility] ([facility] Immature Granulocyte % 0.4 % 0-3.0 Normal (applies to non-n umeric results) [facility] ([facility] Nucleated Red Blood Cell % 0.0 % 0-0 Normal (applies to n on-numeric results) [facility] ([facility] Lymph # 2.0 10 1.5-5.0 Normal (applies to non-numeric resul ts) [facility] ([facility] [place] # 0.4 10 0.0-0.8 Normal (applies to non-numeric resul ts) [facility] ([facility] Baso # 0.1 10 0.0-0.2 Normal (applies to non-numeric resul ts) [facility] ([facility] Eos # 0.3 10 0.0-0.5 Normal (applies to non-numeric resul ts) [facility] ([facility] ID Date Data Source [id number] 10/31/2019 04:10:00 PM EDT MED[facility] ([facility] Name Value Range Interpretation Code Description Data Alicia rce(s) Supporting Document(s) WBC 8.7 10E3/uL 4.1-10.9 [facility] ([facility] NORMAL RANGES Age WBC RBC HGB HCT [...] HCT IS 5% LESS SOURCE FOR DATA: [employer] ([employer] 1800 OPERATION MANUAL( AUTOMATED BLOOD COUNTS AND DIFF.) APPENDIX B-3 HGB 14.7 g/dL 12.0-18.0 [facility] NORMAL RANGES Age WBC RBC HGB HCT MCV PLT Adult M 4.1-10.9 4.20-6.30 12.0-18.0 37.0-51.0 140-440 Adult F 4.1-10.9 4.04-5.48 12.0-18.0 37.0-51.0 80 140-440 0 -1 Yr 5.0-20.0 3.9-5.9 15-18 [...] HCT IS 5% LESS SOURCE FOR DATA: [employer] ([employer] 1800 OPERATION MANUAL( AUTOMATED BLOOD COUNTS AND DIFF.) APPENDIX B-3 RBC 4.50 10E6/uL 4.20-6.30 [facility] ([facility] NORMAL RANGES Age WBC RBC HGB HCT MCV PLT Adult M 4.1-10.9 4.20-6.30 12.0-18.0 37.0-51.0 140-440 Adult F 4.1-10.9 4.04-5.48 12.0-18.0 37.0-51.0 80 140-440 0 -1 Yr 5.0-20.0 3.9-5.9 15-18 [...] HCT IS 5% LESS SOURCE FOR DATA: MARILEE DYN 1800 OPERATION MANUAL( AUTOMATED BLOOD COUNTS AND DIFF.) APPENDIX B-3 HCT 42.1 % 37.0-51.0 [facility] ([facility] NORMAL RANGES Age WBC RBC HGB HCT [...] HCT IS 5% LESS SOURCE FOR DATA: MARILEE DYN 1800 [employer]PERATION MANUAL( AUTOMATED BLOOD COUNTS AND DIFF.) APPENDIX B-3 MCV 93.6 fL 80.0-97.0 [facility] ([facility] NORMAL RANGES Age WBC RBC HGB HCT [...] HCT IS 5% LESS SOURCE FOR DATA: MARILEE DYN 1800 OPERATION MANUAL( AUTOMATED BLOOD COUNTS AND DIFF.) APPENDIX B-3 MCHC 34.9 g/dL 31.0-36.0 [facility] ([facility] NORMAL RANGES Age WBC RBC HGB HCT [...] HCT IS 5% LESS SOURCE FOR DATA: [employer] ([employer] 1800 OPERATION MANUAL( AUTOMATED BLOOD COUNTS AND DIFF.) APPENDIX B-3 MCH 32.7 pg 26.0-32.0 Above high normal [facility] ([facility] NORMAL RANGES Age WBC RBC HGB HCT [...] HCT IS 5% LESS SOURCE FOR DATA: [employer] ([place] 1800 OPERATION MANUAL( AUTOMATED BLOOD COUNTS AND DIFF.) APPENDIX B-3 PLT 317 10E3/uL 140-440 [facility] ([facility] NORMAL RANGES Age WBC RBC HGB HCT MCV PLT Adult M 4.1-10.9 4.20-6.30 12.0-18.0 37.0-51.0 80- 140-440 Adult F 4.1-10.9 4.04-5.48 12.0-18.0 37.0-51.0 80 140-440 0 -1 Yr 5.0-20.0 3.9-5.9 15-18 [...] HCT IS 5% LESS SOURCE FOR DATA: [employer] ([place] 1800 OPERATION MANUAL( AUTOMATED BLOOD COUNTS AND DIFF.) APPENDIX B-3 RDW-CV 12.8 % 11.5-14.5 [facility] NORMAL RANGES Age WBC RBC HGB HCT MCV PLT Adult M 4.1-10.9 4.20-6.30 12.0-18.0 37.0-51.0 80 140-440 Adult F 4.1-10.9 4.04-5.48 12.0-18.0 37.0-51.0 80 140-440 0 -1 Yr 5.0-20.0 3.9-5.9 15-18 [...] HCT IS 5% LESS SOURCE FOR DATA: [employer] ([employer] 1800 OPERATION MANUAL( AUTOMATED BLOOD COUNTS AND DIFF.) APPENDIX B-3 Neut% 64.4 % 37.0-92.0 [facility] NORMAL RANGES Age WBC RBC HGB HCT [...] HCT IS 5% LESS SOURCE FOR DATA: MARILEE DYN 1800 OPERATION MANUAL( AUTOMATED BLOOD COUNTS AND DIFF.) APPENDIX B-3 Lym% 26.5 % 10.0-58.5 [facility] NORMAL RANGES Age WBC RBC HGB HCT [...] HCT IS 5% LESS SOURCE FOR DATA: MARILEE DYN 1800 OPERATION MANUAL( AUTOMATED BLOOD COUNTS AND DIFF.) APPENDIX B-3 MXD% 9.1 % 0.1-24.0 [facility] ([facility] NORMAL RANGES Age WBC RBC HGB HCT [...] HCT IS 5% LESS SOURCE FOR DATA: [employer] ([employer] 1800 OPERATION MANUAL( AUTOMATED BLOOD COUNTS AND DIFF.) APPENDIX B-3 Neut# 5.6 % 2.0-7.8 [facility] ([facility] NORMAL RANGES Age WBC RBC HGB HCT [...] HCT IS 5% LESS SOURCE FOR DATA: Araca DYN 1800 OPERATION MANUAL( AUTOMATED BLOOD COUNTS AND DIFF.) APPENDIX B-3 Lym# 2.3 10E3/uL 0.6-4.1 [facility] ([facility] NORMAL RANGES Age WBC RBC HGB HCT MCV PLT Adult M 4.1-10.9 4.20-6.30 12.0-18.0 37.0-51.0 80 140-440 Adult F 4.1-10.9 4.04-5.48 12.0-18.0 37.0-51.0 80 140-440 0 -1 Yr 5.0-20.0 3.9-5.9 15-18 [...] HCT IS 5% LESS SOURCE FOR DATA: [employer] ([employer] 1800 OPERATION MANUAL( AUTOMATED BLOOD COUNTS AND DIFF.) APPENDIX B-3 MXD# 0.8 10E3/uL 0.0-1.8 [facility] ([facility] NORMAL RANGES Age WBC RBC HGB HCT MCV PLT Adult M 4.1-10.9 4.20-6.30 12.0-18.0 37.0-51.0 80 140-440 Adult F 4.1-10.9 4.04-5.48 12.0-18.0 37.0-51.0 80 140-440 0 -1 Yr 5.0-20.0 3.9-5.9 15-18 [...] HCT IS 5% LESS SOURCE FOR DATA: [employer] ([employer] 1800 OPERATION MANUAL( AUTOMATED BLOOD COUNTS AND DIFF.) APPENDIX B-3 MPV 9.9 fL 9.0-13.0 [facility] NORMAL RANGES Age WBC RBC HGB HCT MCV PLT Adult M 4.1-10.9 4.20-6.30 12.0-18.0 37.0-51.0 140440 Adult F 4.1-10.9 4.04-5.48 12.0-18.0 37.0-51.0 140440 0 -1 Yr 5.0-20.0 3.9-5.9 15-18 MV: [...] HCT IS 5% LESS SOURCE FOR DATA: [employer] ([employer] 1800 OPERATION MANUAL( AUTOMATED BLOOD COUNTS AND DIFF.) APPENDIX B-3 ID Date Data Source [id number] 09/07/2019 03:39:00 PM EDT [facility] ([facility] Name Value Range Interpretation Code Description Data Alicia rce(s) Supporting Document(s) Glu 95 mg/dL 70-110 [facility] ([facility] NORMAL RANGES Age WBC RBC HGB HCT [...] HCT IS 5% LESS SOURCE FOR DATA: MARILEE DYN 1800 OPERATION MANUAL( AUTOMATED BLOOD COUNTS AND [...] Normal 80 and above >32 mL/min Normal BUN 13 mg/dL 10-14 [facility] NORMAL RANGES Age WBC RBC HGB HCT [...] HCT IS 5% LESS SOURCE FOR DATA: [employer] ([place] 1800 OPERATION MANUAL( AUTOMATED BLOOD COUNTS AND [...] Normal 80 and above >32 mL/min Normal Creat 1.0 mg/dL 0.5-1.0 [facility] ([facility] NORMAL RANGES Age WBC RBC HGB HCT [...] HCT IS 5% LESS SOURCE FOR DATA: [employer] ([place] 1800 OPERATION MANUAL( AUTOMATED BLOOD COUNTS AND [...] Normal 80 and above >32 mL/min Normal BUN/Creatinine Ratio 12.9 Calc [facility] ([facility] NORMAL RANGES Age WBC RBC HGB HCT [...] HCT IS 5% LESS SOURCE FOR DATA: [employer] ([place] 1800 OPERATION MANUAL( AUTOMATED BLOOD COUNTS AND [...] Normal 80 and above >32 mL/min Normal K 4.1 mmol/L 3.5-5.1 [facility] ([facility] NORMAL RANGES Age WBC RBC HGB HCT [...] HCT IS 5% LESS SOURCE FOR DATA: [employer] ([employer] 1800 OPERATION MANUAL( AUTOMATED BLOOD COUNTS AND [...] Normal 80 and above >32 mL/min Normal CL 105.2 mmol/L 98.0-107.0 [facility] ([facility] NORMAL RANGES Age WBC RBC HGB HCT [...] HCT IS 5% LESS SOURCE FOR DATA: [employer] ([place] 1800 OPERATION MANUAL( AUTOMATED BLOOD COUNTS AND [...] Normal 80 and above >32 mL/min Normal Na 139 mmol/L 136-145 [facility] NORMAL RANGES Age WBC RBC HGB HCT [...] HCT IS 5% LESS SOURCE FOR DATA: [employer] ([place] 1800 OPERATION MANUAL( AUTOMATED BLOOD COUNTS AND [...] Normal 80 and above >32 mL/min Normal CA 9.5 mg/dL 8.6-10.2 [facility] ([facility] NORMAL RANGES Age WBC RBC HGB HCT [...] HCT IS 5% LESS SOURCE FOR DATA: [employer] ([place] 1800 OPERATION MANUAL( AUTOMATED BLOOD COUNTS AND [...] Normal 80 and above >32 mL/min Normal Co2 22.7 mmol/L 22.0-29.0 [facility] NORMAL RANGES Age WBC RBC HGB HCT [...] HCT IS 5% LESS SOURCE FOR DATA: [employer] ([place] 1800 OPERATION MANUAL( AUTOMATED BLOOD COUNTS AND [...] Normal 80 and above >32 mL/min Normal Alb 4.6 g/dL 3.4-4.8 [facility] NORMAL RANGES Age WBC RBC HGB HCT [...] HCT IS 5% LESS SOURCE FOR DATA: MARILEE DYN 1800 OPERATION MANUAL( AUTOMATED BLOOD COUNTS AND [...] Normal 80 and above >32 mL/min Normal TP 6.9 g/dL 6.6-8.7 [facility] ([facility] NORMAL RANGES Age WBC RBC HGB HCT [...] HCT IS 5% LESS SOURCE FOR DATA: MARILEE DYN 1800 OPERATION MANUAL( AUTOMATED BLOOD COUNTS AND [...] Normal 80 and above >32 mL/min Normal A/G Ratio 2.0 Calc [facility] NORMAL RANGES Age WBC RBC HGB HCT [...] HCT IS 5% LESS SOURCE FOR DATA: [employer]ji [employer] ([place] 1800 OPERATION MANUAL( AUTOMATED BLOOD COUNTS AND [...] Normal 80 and above >32 mL/min Normal Alp 50.8 U/L 35-129 [facility] NORMAL RANGES Age WBC RBC HGB HCT [...] HCT IS 5% LESS SOURCE FOR DATA: [employer] ([place] 1800 OPERATION MANUAL( AUTOMATED BLOOD COUNTS AND [...] Normal 80 and above >32 mL/min Normal Globulin 2.3 Calc [facility] ([facility] NORMAL RANGES Age WBC RBC HGB HCT [...] HCT IS 5% LESS SOURCE FOR DATA: [employer] ([place] 1800 OPERATION MANUAL( AUTOMATED BLOOD COUNTS AND [...] Normal 80 and above >32 mL/min Normal Tbili 0.17 mg/dL 0.0-1.2 [facility] ([facility] NORMAL RANGES Age WBC RBC HGB HCT [...] HCT IS 5% LESS SOURCE FOR DATA: [employer] ([place] 1800 OPERATION MANUAL( AUTOMATED BLOOD COUNTS AND [...] Normal 80 and above >32 mL/min Normal Alt (SGPT) 8 U/L 0-41 [facility] ([facility] NORMAL RANGES Age WBC RBC HGB HCT [...] HCT IS 5% LESS SOURCE FOR DATA: [employer] ([place] 1800 OPERATION MANUAL( AUTOMATED BLOOD COUNTS AND [...] Normal 80 and above >32 mL/min Normal Ast (Sgot) 13 U/L 0-40 [facility] ([facility] NORMAL RANGES Age WBC RBC HGB HCT [...] HCT IS 5% LESS SOURCE FOR DATA: [employer] ([place] 1800 OPERATION MANUAL( AUTOMATED BLOOD COUNTS AND [...] Normal 80 and above >32 mL/min Normal Anion Gap 15 mmol/L [facility] [facility] NORMAL RANGES Age WBC RBC HGB HCT [...] HCT IS 5% LESS SOURCE FOR DATA: [employer] ([employer] 1800 OPERATION MANUAL( AUTOMATED BLOOD COUNTS AND [...] Normal 80 and above >32 mL/min Normal Osmolality-Calculated 276.5 Calc MED ENT ([facility] NORMAL RANGES Age WBC RBC HGB HCT [...] HCT IS 5% LESS SOURCE FOR DATA: [employer] ([employer] 1800 OPERATION MANUAL( AUTOMATED BLOOD COUNTS AND [...] Normal 80 and above >32 mL/min Normal eGFR 81 # MEDENT ( [facility] NORMAL RANGES Age WBC RBC HGB HCT [...] HCT IS 5% LESS SOURCE FOR DATA: Araca DYN 1800 OPERATION MANUAL( AUTOMATED BLOOD COUNTS AND [...] Normal 80 and above >32 mL/min Normal eGFR Non-Afr. Namibian 70 # MEDENT ([facility] NORMAL RANGES Age WBC RBC HGB HCT [...] HCT IS 5% LESS SOURCE FOR DATA: [employer]aca DYN 1800 OPERATION MANUAL( AUTOMATED BLOOD COUNTS AND [...] Normal 80 and above >32 mL/min Normal ID Date Data Source [id number] 09/07/2019 03:39:00 PM EDT MEDENT ([facility] Name Value Range Interpretation Code Description Data Alicia rce(s) Supporting Document(s) RBC 4.49 10E6/uL 4.20-6.30 MED[facility] ([facility] NORMAL RANGES Age WBC RBC HGB HCT [...] HCT IS 5% LESS SOURCE FOR DATA: [employer] ([employer] 1800 OPERATION MANUAL( AUTOMATED BLOOD COUNTS AND [...] Normal 80 and above >32 mL/min Normal WBC 6.5 10E3/uL 4.1-10.9 [facility] ([facility] NORMAL RANGES Age WBC RBC HGB HCT [...] HCT IS 5% LESS SOURCE FOR DATA: [employer] ([employer] 1800 OPERATION MANUAL( AUTOMATED BLOOD COUNTS AND [...] Normal 80 and above >32 mL/min Normal MCV 94.2 fL 80.0-97.0 [facility] ([facility] NORMAL RANGES Age WBC RBC HGB HCT [...] HCT IS 5% LESS SOURCE FOR DATA: [employer] ([employer] 1800 OPERATION MANUAL( AUTOMATED BLOOD COUNTS AND [...] Normal 80 and above >32 mL/min Normal HCT 42.3 % 37.0-51.0 MEDRUB[facility] ([facility] NORMAL RANGES Age WBC RBC HGB HCT [...] HCT IS 5% LESS SOURCE FOR DATA: [employer] ([employer] 1800 OPERATION MANUAL( AUTOMATED BLOOD COUNTS AND [...] Normal 80 and above >32 mL/min Normal HGB 14.5 g/dL 12.0-18.0 [facility] ([facility] NORMAL RANGES Age WBC RBC HGB HCT [...] HCT IS 5% LESS SOURCE FOR DATA: [employer] ([employer] 1800 OPERATION MANUAL( AUTOMATED BLOOD COUNTS AND [...] Normal 80 and above >32 mL/min Normal MCH 32.3 pg 26.0-32.0 Above high normal [facility] ([facility] NORMAL RANGES Age WBC RBC HGB HCT [...] HCT IS 5% LESS SOURCE FOR DATA: [employer] ([employer] 1800 OPERATION MANUAL( AUTOMATED BLOOD COUNTS AND [...] Normal 80 and above >32 mL/min Normal MCHC 34.3 g/dL 31.0-36.0 [facility] ([facility] NORMAL RANGES Age WBC RBC HGB HCT [...] HCT IS 5% LESS SOURCE FOR DATA: [employer] ([employer] 1800 OPERATION MANUAL( AUTOMATED BLOOD COUNTS AND [...] Normal 80 and above >32 mL/min Normal PLT 263 10E3/uL 140-440 [facility] ([facility] NORMAL RANGES Age WBC RBC HGB HCT [...] HCT IS 5% LESS SOURCE FOR DATA: MARILEE DYN 1800 OPERATION MANUAL( AUTOMATED BLOOD COUNTS AND [...] Normal 80 and above >32 mL/min Normal RDW-CV 12.9 % 11.5-14.5 [facility] ([facility] NORMAL RANGES Age WBC RBC HGB HCT [...] HCT IS 5% LESS SOURCE FOR DATA: [employer] ([employer] 1800 OPERATION MANUAL( AUTOMATED BLOOD COUNTS AND [...] Normal 80 and above >32 mL/min Normal Lym% 30.7 % 10.0-58.5 [facility] ([facility] NORMAL RANGES Age WBC RBC HGB HCT [...] HCT IS 5% LESS SOURCE FOR DATA: [employer] ([employer] 1800 OPERATION MANUAL( AUTOMATED BLOOD COUNTS AND [...] Normal 80 and above >32 mL/min Normal Lym# 2.0 10E3/uL 0.6-4.1 [facility] ([facility] NORMAL RANGES Age WBC RBC HGB HCT [...] HCT IS 5% LESS SOURCE FOR DATA: [employer] ([employer] 1800 OPERATION MANUAL( AUTOMATED BLOOD COUNTS AND [...] Normal 80 and above >32 mL/min Normal Neut% 59.3 % 37.0-92.0 [facility] ([facility] NORMAL RANGES Age WBC RBC HGB HCT [...] HCT IS 5% LESS SOURCE FOR DATA: [employer] ([employer] 1800 OPERATION MANUAL( AUTOMATED BLOOD COUNTS AND [...] Normal 80 and above >32 mL/min Normal MXD% 10.0 % 0.1-24.0 [facility] ([facility] NORMAL RANGES Age WBC RBC HGB HCT [...] HCT IS 5% LESS SOURCE FOR DATA: [employer] ([employer] 1800 OPERATION MANUAL( AUTOMATED BLOOD COUNTS AND [...] Normal 80 and above >32 mL/min Normal Neut# 3.8 % 2.0-7.8 [facility] ([facility] NORMAL RANGES Age WBC RBC HGB HCT [...] HCT IS 5% LESS SOURCE FOR DATA: [employer] ([employer] 1800 OPERATION MANUAL( AUTOMATED BLOOD COUNTS AND [...] Normal 80 and above >32 mL/min Normal MXD# 0.7 10E3/uL 0.0-1.8 MED[facility] ([facility] NORMAL RANGES Age WBC RBC HGB HCT [...] HCT IS 5% LESS SOURCE FOR DATA: [employer] ([employer] 1800 OPERATION MANUAL( AUTOMATED BLOOD COUNTS AND [...] Normal 80 and above >32 mL/min Normal MPV 10.3 fL 9.0-13.0 RUPA ([facility] NORMAL RANGES Age WBC RBC HGB HCT [...] HCT IS 5% LESS SOURCE FOR DATA: [employer] ([employer] 1800 OPERATION MANUAL( AUTOMATED BLOOD COUNTS AND [...] Normal 80 and above >32 mL/min Normal ID Date Data Source [id number] 09/07/2019 03:38:00 PM EDT MEDENT ([facility] Name Value Range Interpretation Code Description Data Alicia rce(s) Supporting Document(s) Thyrotropin [Units/volume] in Serum or Plasma 1.241 ulU/mL 0.60-4.8 MED[facility] ([facility] ID Date Data Source [id number] 06/27/2019 12:00:00 AM EDT [facility]ab MD Patient Name: HEMANT [id number] [facility] Date of : 1980[place] Date of Exam: 06/27/2019TURNER [place] [id number]#: Fax: [phone] EXAM: CHEST (2 VIEW) X-RAYCLINICAL INFORMATION: Mild persistent asthma.Comparison, multiples, the latest 05/06/2019.Two views.The superior mediastinal structures are midline. The heart is notenlarged. The diaphragmat ic surfaces of the lungs are regular and thecostophrenic angles are clear. The pulmonary morales are clear. Thevisualized osseous structures are intact.There is an unchanged left upper lobe density likely a calcified granulomaand stable for many years.IMPRESSION:There is no acute cardiopulmonary disease.No significant change compared to multiple prior exams.IZAIAH Nieves/Torres [place] for referring HEMANT ESTRADA to our office. Electronically Signed - JANA DENSON DO 06/27/19 16:38 Name Value Range Interpretation Code Description Data Alicia rce(s) Supporting Document(s) ID Date Data Source [id number] 05/06/2019 02:53:00 PM EDT MEDENT ([facility] Name Value Range Interpretation Code Description Data Alicia rce(s) Supporting Document(s) Lipoprotein lipase [Enzymatic activity/volume] in Serum or Plasm a 94 U/L 73-393 Normal (applies to non-numeric results) MEDENT ([facility] Choriogonadotropin.beta subunit ( test) [Pres ence] in Serum or Plasma Laboratory test result Normal (applies to non-numeric results) MED[facility] ([facility] Thyrotropin [Units/volume] in Serum or Plasma 0.511 uIU/ML 0. 358-3.740 Normal (applies to non-numeric results) MED[facility] ([facility] ID Date Data Source [id number] 05/06/2019 02:53:00 PM EDT MEDENT ([facility] Name Value Range Interpretation Code Description Data Alicia rce(s) Supporting Document(s) Blood Urea Nitrogen 10 mg/dL 7-18 Normal (applies to non-nume ezequiel results) MED[facility] ([facility] Glucose, Fasting 94 mg/dL 70-100 Normal (applies to non-numeric results) [facility] ([facility] Sodium Level 141 meq/L 136-145 Normal (applies to non-numeric res ults) MED[facility] ([facility] Creatinine For GFR 1.10 mg/dL 0.55-1.30 Normal (applies to non -numeric results) [facility] ([facility] Glomerular Filtration Rate 58.6 Normal (applies to n on-numeric results) [facility] ([facility] <content>Units are mL/min/1.73 m2</content>
<content></content>
<content>Chronic Kidney Disease Staging per NKF:</content>
<content></content>
<content>Stage I & II GFR >=60 Normal to Mildly Decreased</content>
<content>Stage III GFR 30- 59 Moderately Decreased</content>
<content>Stage IV GFR 15-29 Severely Decreased</content>
<content>Stage V GFR <15 Very Little GFR Left</content>
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
<content></content> Potassium Serum 4.0 meq/L 3.5-5.1 Normal (applies to non-numeric results) [facility] ([facility] Chloride Level 110 meq/L 98-107 Above high normal MED ENT ([facility] Carbon Dioxide Level 24 meq/L 21-32 Normal (applies to non-num grace results) [facility] [facility] Calcium Level 8.5 mg/dL 8.5-10.1 Normal (applies to non-numeric re sults) [facility] ([facility] Anion Gap 7 meq/L 8-16 Below low normal [facility] ( [facility] ID Date Data Source [id number] 05/06/2019 02:53:00 PM EDT MED[facility] ([facility] Name Value Range Interpretation Code Description Data Alicia rce(s) Supporting Document(s) Ast/Sgot 10 U/L 7-37 Normal (applies to non-numeric resul ts) [facility] ([facility] Alt/SGPT 12 U/L 12-78 Normal (applies to non-numeric resul ts) [facility] ([facility] Alkaline Phosphatase 62 U/L 45-117 Normal (applies to non-num grace results) [facility] ([facility] Bilirubin,Total 0.3 mg/dL 0.2-1.0 Normal (applies to non-numeric results) [facility] ([facility] Total Protein 6.8 GM/DL 6.4-8.2 Normal (applies to non-numeric re sults) [facility] ([facility] Bilirubin,Direct Laboratory test result 0.0-0.2 Normal ( applies to non-numeric results) [facility] ([facility] ) Albumin 3.6 GM/DL 3.2-5.2 Normal (applies to non-numeric resul ts) [facility] ([facility] Albumin/Globulin Ratio 1.13 1.00-1.93 Normal (applies to non-numeric results) [facility] ([facility] ID Date Data Source [id number] 05/06/2019 02:53:00 PM EDT [facility] ([facility] Name Value Range Interpretation Code Description Data Alicia rce(s) Supporting Document(s) CPK Creatine Phosphokinase 42 U/L 26-192 Barbara l (applies to non-numeric results) MED[facility] ([facility] ) CK-MB Value Mass Laboratory test result Normal ( applies to non-numeric results) [facility] ([facility] ) Troponin I Laboratory test result Normal (applies to non-n umeric results) [facility] ([facility] <content>Troponin I Reference Interval f or Siemens [place] LOCI:</content>
<content></content>
<content>99th Percentile= 0.00-0.045 ng/ml</content>
<content></content>
<content>Risk Stratification:</content>
<content><= 0.10 ng/ml Decreased Risk for Adverse Clinical</content>
<content>Events.</content>
<content>0.10-1.50 ng/ml Increased Risk for Adverse Clinical</content>
<content>Events. Evaluation of additional</content>
<content>criterion and/or repeat testing in 2-6</content>
<content>hours is suggested to rule out myocardial</content>
<content>damage.</content>
<content>>= 1.50 ng/ml Indicative of Myocardial Injury.</content>
<content></content> MB/CK Relative Index 2.38 Normal (applies to non-num grace results) [facility] ([facility] <content>DIAGNOSIS CRITERIA</content>
<content>MMB ng/ml Relative Index (RI)</content>
<content>NON-AMI < or = 5 N/A</content>
<content>QUICK ZONE > 5 < or = 4</content>
<content>AMI > 5 > 4</content>
<content></content> ID Date Data Source [id number] 05/06/2019 02:53:00 PM EDT MED[facility] ([facility] Name Value Range Interpretation Code Description Data Alicia rce(s) Supporting Document(s) White Blood Count 7.5 10 4.0-10.0 Normal (applies to non-numeri c results) [facility] ([facility] Hematocrit 41.4 % 36.0-47.0 Normal (applies to non-numeric resul ts) [facility] ([facility] Red Blood Count 4.51 10 4.00-5.40 Normal (applies to non-numeric results) [facility] ([facility] Hemoglobin 14.1 g/dL 12.0-15.5 Normal (applies to non-numeric resul ts) [facility] ([facility] Mean Corpuscular Volume 91.8 fl 80.0-96.0 Normal ( applies to non-numeric results) [facility] ([facility] ) Mean Corpuscular HGB Conc 34.1 g/dL 32.0-36.5 Normal (applies to non-numeric results) [facility] ([facility] ) Mean Corpuscular Hemoglobin 31.3 pg 27.0-33.0 Norm al (applies to non-numeric results) [facility] ([facility] ) Red Cell Distribution Width 12.3 % 11.5-14.5 Norm al (applies to non-numeric results) [facility] ([facility] ) Lymph % 13.3 % 24.0-44.0 Below low normal [facility] ( [facility] Platelet Count, Automated 250 10 150-450 Normal (applies to non-numeric results) [facility] ([facility] ) Neutrophils % 75.1 % 36.0-66.0 Above high normal MEDE NT ([facility] [place] % 9.1 % 0.0-5.0 Above high normal [facility] ([facility] Eos % 1.7 % 0.0-3.0 Normal (applies to non-numeric resul ts) [facility] ([facility] Baso % 0.4 % 0.0-1.0 Normal (applies to non-numeric resul ts) [facility] ([facility] Nucleated Red Blood Cell % 0.0 % 0-0 Normal (applies to n on-numeric results) [facility] ([facility] Immature Granulocyte % 0.4 % 0-3.0 Normal (applies to non-n umeric results) [facility] ([facility] Neutrophils # 5.6 10 1.5-8.5 Normal (applies to non-numeric re sults) [facility] ([facility] Eos # 0.1 10 0.0-0.5 Normal (applies to non-numeric resul ts) [facility] ([facility] Lymph # 1.0 10 1.5-5.0 Below low normal [facility] ( [facility] [place] # 0.7 10 0.0-0.8 Normal (applies to non-numeric resul ts) [facility] ([facility] Baso # 0.0 10 0.0-0.2 Normal (applies to non-numeric resul ts) [facility] ([facility] Procedure Social History Code Duration Value Status Description Data Source(s ) Smoking 03/26/2020 12:00:00 AM EST Current Smoker completed Curre nt Smoker eCW1 ([facility]) Alcohol intake 12/29/2019 12:00:00 AM EST Never completed [facility] Cigarettes smoked current (pack per day) - Reported 12/29/19 20 12:00:00 AM EST UNK completed Health system Smoking 12/29/2019 12:00:00 AM EST Current every day smoker co mpleted Current every day smoker [facility] Vital Signs ID Date Data Source UNK Name Value Range Interpretation Code Description Data Source(s) Systolic blood pressure 104 mm[Hg] 104 mm[Hg] M EDRUBENS ([facility] Oxygen saturation in Arterial blood by Pulse oximetry 98 % 98 % RUPA ([facility] Body mass index (BMI) [Ratio] 25.8 kg/m2 25.8 k g/m2 MEDRUB[facility] ([facility] Lane body weight 110 [lb_av] 110 [lb_av] MEDEN T ([facility] Body weight 141.00 [lb_av] 141.00 [lb_av] MEDEN T ([facility] Body height 62 [in_i] 62 [in_i] [facility]UB[facility] ([facility] 5'2" Respiratory rate 16 /min 16 /min MEDENT ( [facility] Heart rate 95 /min 95 /min MED[facility] ([facility] Body temperature 97.0 [degF] 97.0 [degF] [facility] ([facility] Diastolic blood pressure 82 mm[Hg] 82 mm[Hg] [facility] ([facility] Diastolic blood pressure 76 mm[Hg] 76 mm[Hg] eCW1 ([facility]) Systolic blood pressure 126 mm[Hg] 126 mm[Hg] e CW1 ([facility]) Body mass index (BMI) [Ratio] 29.10 kg/m2 29.10 kg/m2 W1 ([facility]) Body height [in_i] eCW1 ([facility]) Body weight 149 [lb_av] 149 [lb_av] eCW1 ([facility]) Body surface area Derived from formula 1.60 m2 1.60 m2 MEDENT ([facility]) Body weight 61.236 kg 61.236 kg [facility] ([facility]) Lane body weight 105 [lb_av] 105 [lb_av] MEDEN T ([facility]) Body mass index (BMI) [Ratio] 25.5 kg/m2 25.5 k g/m2 MEDENT ([facility]) Body weight 135.00 [lb_av] 135.00 [lb_av] MEDEN T ([facility]) Body height 61 [in_i] 61 [in_i] MEDENT ([facility]) 5'1" Oxygen saturation in Arterial blood by Pulse oximetry 97 % 97 % [facility] ([facility] Body mass index (BMI) [Ratio] 26.3 kg/m2 26.3 k g/m2 MED[facility] ([facility] Lane body weight 110 [lb_av] 110 [lb_av] MEDEN T ([facility] Body weight 144.00 [lb_av] 144.00 [lb_av] MEDEN T ([facility] Body height 62 [in_i] 62 [in_i] MEDENT ([facility] 5'2" Respiratory rate 16 /min 16 /min MEDENT ( [facility] Heart rate 97 /min 97 /min MED[facility] ([facility] Body temperature 98.1 [degF] 98.1 [degF] MED[facility] ([facility] Diastolic blood pressure 72 mm[Hg] 72 mm[Hg] MED[facility] ([facility] Systolic blood pressure 112 mm[Hg] 112 mm[Hg] M EDENT ([facility] Body surface area Derived from formula 1.63 m2 1.63 m2 [facility] ([facility]) Body weight 64.411 kg 64.411 kg [facility] ([facility]) Lane body weight 105 [lb_av] 105 [lb_av] MEDEN T ([facility], ) Body mass index (BMI) [Ratio] 26.8 kg/m2 26.8 k g/m2 MEDENT ([facility], ) Body weight 142.00 [lb_av] 142.00 [lb_av] MEDEN T ([facility], ) Body height 61 [in_i] 61 [in_i] MEDENT ([facility], ) 5'1" Oxygen saturation in Arterial blood by Pulse oximetry 98 % 98 % [facility] ([facility], ) Heart rate 78 /min 78 /min [facility] ([facility]) Diastolic blood pressure 82 mm[Hg] 82 mm[Hg] [facility], ) Systolic blood pressure 104 mm[Hg] 104 mm[Hg] M [facility] ([facility], ) Oxygen saturation in Arterial blood by Pulse oximetry 98 % 98 % MED[facility] ([facility] Body mass index (BMI) [Ratio] 25.1 kg/m2 25.1 k g/m2 MED[facility] ([facility] Lane body weight 110 [lb_av] 110 [lb_av] MEDEN T ([facility] Body weight 137.00 [lb_av] 137.00 [lb_av] MEDEN T ([facility] Body height 62 [in_i] 62 [in_i] MEDENT ([facility] 5'2" Respiratory rate 16 /min 16 /min MED[facility] ( [facility] Heart rate 92 /min 92 /min [facility] ([facility] Body temperature 97.8 [degF] 97.8 [degF] MED[facility] ([facility] Diastolic blood pressure 78 mm[Hg] 78 mm[Hg] [facility] ([facility] Systolic blood pressure 102 mm[Hg] 102 mm[Hg] M EDENT ([facility] Diastolic blood pressure 70 mm[Hg] 70 mm[Hg] [facility] Systolic blood pressure 100 mm[Hg] 100 mm[Hg] S [facility] Oxygen saturation in Arterial blood by Pulse oximetry 99 % 99 % [facility] Body mass index (BMI) [Ratio] 25.06 kg/m2 25.06 kg/m2 [facility] Body weight 62.143 kg 62.143 kg [facility] Body height 157.5 cm 157.5 cm [facility] Heart rate 84 /min 84 /min [facility] Body mass index (BMI) [Ratio] 24.7 kg/m2 24.7 k g/m2 MEDENT ([facility], [facility]) Body height 62 [in_i] 62 [in_i] MEDENT ([facility], [facility]) 5'2" Body weight 135.00 [lb_av] 135.00 [lb_av] MEDEN T ([facility], [facility]) Body temperature 98.3 [degF] 98.3 [degF] MEDENT ([facility], [facility]) Oxygen saturation in Arterial blood by Pulse oximetry 99 % 99 % MEDENT ([facility], [facility]) Respiratory rate 16 /min 16 /min [facility] ( [facility], [facility]) Heart rate 100 /min 100 /min MEDENT ([facility], [facility]) Diastolic blood pressure 77 mm[Hg] 77 mm[Hg] MEDENT ([facility], [facility]) Systolic blood pressure 108 mm[Hg] 108 mm[Hg] EDENT ([facility], [facility]) Oxygen saturation in Arterial blood by Pulse oximetry 97 % 97 % [facility] ([facility] [facility] Body mass index (BMI) [Ratio] 24.5 kg/m2 24.5 k g/m2 [facility] ([facility] Lane body weight 110 [lb_av] 110 [lb_av] MEDEN T ([facility] Body weight 134.00 [lb_av] 134.00 [lb_av] MED[facility] T ([facility] Body height 62 [in_i] 62 [in_i] [facility] ([facility] 5'2" Respiratory rate 16 /min 16 /min [facility] ( [facility] Heart rate 80 /min 80 /min [facility] ([facility] Body temperature 97.6 [degF] 97.6 [degF] [facility] ([facility] Diastolic blood pressure 66 mm[Hg] 66 mm[Hg] [facility] ([facility] Systolic blood pressure 114 mm[Hg] 114 mm[Hg] M EDENT ([facility] Body mass index (BMI) [Ratio] 24.3 kg/m2 24.3 k g/m2 [facility] ([facility] Lane body weight 110 [lb_av] 110 [lb_av] MED[facility] T ([facility] Body weight 133.00 [lb_av] 133.00 [lb_av] MED[facility] T ([facility] Body height 62 [in_i] 62 [in_i] [facility] ([facility] 5'2" Respiratory rate 16 /min 16 /min [facility] ( [facility] Heart rate 90 /min 90 /min [facility] ([facility] Body temperature 97.7 [degF] 97.7 [degF] [facility] ([facility] Diastolic blood pressure 68 mm[Hg] 68 mm[Hg] [facility] ([facility] Systolic blood pressure 114 mm[Hg] 114 mm[Hg] M EDENT ([facility] Oxygen saturation in Arterial blood by Pulse oximetry 100 % 100 % [facility] ([facility] Oxygen saturation in Arterial blood by Pulse oximetry 99 % 99 % [facility] ([facility] Body mass index (BMI) [Ratio] 23.8 kg/m2 23.8 k g/m2 [facility] ([facility] Body weight 130.00 [lb_av] 130.00 [lb_av] MED[facility] T ([facility] Body height 62 [in_i] 62 [in_i] [facility] ([facility] 5'2" Respiratory rate 18 /min 18 /min [facility] ( [facility] Heart rate 80 /min 80 /min [facility] ([facility] Body temperature 98.0 [degF] 98.0 [degF] [facility] ([facility] Diastolic blood pressure 68 mm[Hg] 68 mm[Hg] [facility] ([facility] Systolic blood pressure 102 mm[Hg] 102 mm[Hg] M EDENT ([facility] Oxygen saturation in Arterial blood by Pulse oximetry 98 % 98 % [facility] ([facility] Body mass index (BMI) [Ratio] 24.3 kg/m2 24.3 k g/m2 [facility] ([facility] Body weight 133.00 [lb_av] 133.00 [lb_av] MEDEN T ([facility] Body height 62 [in_i] 62 [in_i] [facility] ([facility] 5'2" Respiratory rate 16 /min 16 /min [facility] ( [facility] Heart rate 86 /min 86 /min [facility] ([facility] Body temperature 98.2 [degF] 98.2 [degF] [facility] ([facility] Diastolic blood pressure 78 mm[Hg] 78 mm[Hg] [facility] ([facility] Systolic blood pressure 120 mm[Hg] 120 mm[Hg] M EDENT ([facility] Body surface area Derived from formula 1.62 m2 1.62 m2 [facility] ([facility], ) Body weight 63.050 kg 63.050 kg [facility] ([facility], ) Lane body weight 105 [lb_av] 105 [lb_av] MEDEN T ([facility], ) Body mass index (BMI) [Ratio] 26.3 kg/m2 26.3 k g/m2 [facility] ([facility], ) Body weight 139.00 [lb_av] 139.00 [lb_av] MEDEN T ([facility], ) Body height 61 [in_i] 61 [in_i] [facility] ([facility]) 5'1" Oxygen saturation in Arterial blood by Pulse oximetry 97 % 97 % [facility] ([facility]) Room Air Heart rate 85 /min 85 /min [facility] ([facility]) Diastolic blood pressure 70 mm[Hg] 70 mm[Hg] [facility] ([facility]) Systolic blood pressure 104 mm[Hg] 104 mm[Hg] M EDENT ([facility]) Body mass index (BMI) [Ratio] 25.2 kg/m2 25.2 k g/m2 [facility] ([facility] Body weight 138.00 [lb_av] 138.00 [lb_av] MEDEN T ([facility] Body height 62 [in_i] 62 [in_i] [facility] ([facility] 5'2" Respiratory rate 16 /min 16 /min [facility] ( [facility] Heart rate 68 /min 68 /min [facility] ([facility] Body temperature 98.2 [degF] 98.2 [degF] [facility] ([facility] Diastolic blood pressure 66 mm[Hg] 66 mm[Hg] [facility] ([facility] Systolic blood pressure 102 mm[Hg] 102 mm[Hg] [facility] ([facility] Oxygen saturation in Arterial blood by Pulse oximetry 98 % 98 % [facility] ([facility] Body mass index (BMI) [Ratio] 25.2 kg/m2 25.2 k g/m2 [facility] ([facility] Body weight 138.00 [lb_av] 138.00 [lb_av] MEDEN T ([facility] Body height 62 [in_i] 62 [in_i] [facility] ([facility] 5'2" Respiratory rate 16 /min 16 /min [facility] ( [facility] Heart rate 104 /min 104 /min [facility] ([facility] Body temperature 98.4 [degF] 98.4 [degF] [facility] ([facility] Diastolic blood pressure 76 mm[Hg] 76 mm[Hg] [facility] ([facility] Systolic blood pressure 106 mm[Hg] 106 mm[Hg] M EDENT ([facility] Oxygen saturation in Arterial blood by Pulse oximetry 98 % 98 % [facility] ([facility] Body mass index (BMI) [Ratio] 26.3 kg/m2 26.3 k g/m2 [facility] ([facility] Body weight 144.00 [lb_av] 144.00 [lb_av] MEDEN T ([facility] Body height 62 [in_i] 62 [in_i] [facility] ([facility] 5'2" Respiratory rate 16 /min 16 /min [facility] ( [facility] Heart rate 102 /min 102 /min [facility] ([facility] Body temperature 98.6 [degF] 98.6 [degF] [facility] ([facility] Diastolic blood pressure 78 mm[Hg] 78 mm[Hg] [facility] ([facility] Systolic blood pressure 112 mm[Hg] 112 mm[Hg] M EDENT ([facility] Systolic blood pressure 118 mm[Hg] 118 mm[Hg] M EDENT ([facility] Oxygen saturation in Arterial blood by Pulse oximetry 98 % 98 % [facility] ([facility] Body mass index (BMI) [Ratio] 26.3 kg/m2 26.3 k g/m2 [facility] ([facility] Body weight 144.00 [lb_av] 144.00 [lb_av] MEDEN T ([facility] Body height 62 [in_i] 62 [in_i] [facility] ([facility] 5'2" Respiratory rate 16 /min 16 /min [facility] ( [facility] Heart rate 92 /min 92 /min [facility] ([facility] Body temperature 98.6 [degF] 98.6 [degF] [facility] ([facility] Diastolic blood pressure 78 mm[Hg] 78 mm[Hg] [facility] ([facility] Body weight 139.00 [lb_av] 139.00 [lb_av] MEDEN T ([facility], [facility]) Body temperature 98.3 [degF] 98.3 [degF] [facility] ([facility], [facility]) Oxygen saturation in Arterial blood by Pulse oximetry 99 % 99 % [facility] ([facility], [facility]) Respiratory rate 16 /min 16 /min [facility] ( [facility], [facility]) Heart rate 74 /min 74 /min [facility] ([facility], [facility]) Diastolic blood pressure 80 mm[Hg] 80 mm[Hg] [facility] ([facility], [facility]) Systolic blood pressure 114 mm[Hg] 114 mm[Hg] M EDENT ([facility], [facility]) Body mass index (BMI) [Ratio] 25.4 kg/m2 25.4 k g/m2 [facility] ([facility], [facility]) Body height 62 [in_i] 62 [in_i] [facility] ([facility], [facility]) 5'2" Patient Treatment Plan of Care Planned Activity Planned Date Details Description Data Source (s) Sucralfate 1000 MG Oral Tablet 12/24/2019 12:00:00 AM EDT [facility] Omeprazole 20 MG Delayed Release Oral Capsule 12/24/2019 12:00:00 A M EDT [facility] buspirone hydrochloride 15 MG Oral Tablet 11/25/2019 12:00:00 AM ED T [facility] 14 ACTUAT fluticasone furoate 0.1 MG/ACTUAT Dry Powder Inhaler [Arnuity] 10/23/2019 12:00:00 AM EDT [facility]
--- OUTSIDE RECORDS SUMMARY | 2020-04-12 12:20 | CCD ---
Author Author [facility] Organization [facility] Address Unknown Phone Unavailable Care Team Providers Care Funeral Director'S Assistant Name Role Phone Barraclough, Misty PA Unavailable [...] Unavailable Rachel SCOTT MD Unavailable Unavailable Rachel SCTOT MD Unavailable Unavailable Rachel SCOTT MD Unavailable Unavailable Rachel SCOTT MD Unavailable Unavailable Rachel SCOTT MD Unavailable Unavailable Rachel SCOTT MD Unavailable Unavailable Rachel SCOTT MD Unavailable Unavailable Rachel SCOTT MD Unavailable Unavailable Rachel SCOTT MD Unavailable Unavailable Rachel SCOTT MD Unavailable Unavailable Rachel SCOTT MD Unavailable Unavailable SONIA H IKER MILLAN Unavailable Unavailable SONIA H IKER MILLAN Unavailable Unavailable SONIA H IKER MILLAN Unavailable Unavailable SONIA H IKER MILLAN Unavailable Unavailable SONIA H IKER MILLAN Unavailable Unavailable SONIA H IKER MILLAN Unavailable Unavailable SONIA H IKER MILLAN Unavailable Unavailable SONIA H IKER MILLAN Unavailable Unavailable SONIA H IKER MILLAN Unavailable Unavailable SONIA, H IKER MILLAN Unavailable Unavailable SONIA, H IKER MD Unavailable Unavailable SONIA, H IKER MILLAN Unavailable Unavailable SONIA, H IKER MILLAN Unavailable Unavailable SONIA, H IKER MILLAN Unavailable Unavailable SONIA H IKER MILLAN Unavailable Unavailable SONIA, H IKER MILLAN Unavailable Unavailable SONIA H IKER MILLAN Unavailable Unavailable SONIA H IKER MILLAN Unavailable Unavailable SONIA, H IKER MD Unavailable Unavailable SONIA, H IEKR MILLAN Unavailable Unavailable SONIA, H IKER MILLAN Unavailable Unavailable SONIA, H IKER MILLAN Unavailable Unavailable SONIARachel MD Unavailable Unavailable SONIARachel MD Unavailable Unavailable SONIARachel MD Unavailable Unavailable Rachel SCOTT MD Unavailable Unavailable Rachel SCOTT MD Unavailable Unavailable SONIA H IKER IMLLAN Unavailable Unavailable Rachel SCOTT MD Unavailable Unavailable [...] Unavailable Unavailable Rachel SCOTT MD Unavailable Unavailable SONIA H IKER MILLAN Unavailable Unavailable Rachel SCOTT MD Unavailable Unavailable Rachel SCOTT MD Unavailable Unavailable Daisy, D Carlos A [...] MADINA, JORDAN PA Unavailable Unavailable Moreno RIZO POLICEMAN Unavailable Unavailable Moreno RIZO POLICEMAN Unavailable Unavailable Moreno RIZO POLICEMAN Unavailable Unavailable Moreno RIZO POLICEMAN Unavailable Unavailable Moreno RIZO POLICEMAN Unavailable Unavailable Moreno RIZO POLICEMAN Unavailable Unavailable Moreno RIZO LUZ MARIA POLICEMAN Unavailable Unavailable Moreno RIZO POLICEMAN Unavailable Unavailable Moreno RIZO POLICEMAN Unavailable Unavailable Moreno RIZO POLICEMAN Unavailable Unavailable Moreno RIZO POLICEMAN Unavailable Unavailable Moreno RIZO POLICEMAN Unavailable Unavailable Moreno RIZO POLICEMAN Unavailable Unavailable Moreno RIZO LUZ MARIA POLICEMAN Unavailable Unavailable Moreno RIZO POLICEMAN Unavailable Unavailable Moreno RIZO POLICEMAN Unavailable Unavailable RIZO, M LUZ MARIA POLICEMAN Unavailable Unavailable RIZO, M LUZ MARIA POLICEMAN Unavailable Unavailable RIZO, M LUZ MARIA POLICEMAN Unavailable Unavailable RIZO, M LUZ MARIA POLICEMAN Unavailable Unavailable RIZO, M LUZ MARIA POLICEMAN Unavailable Unavailable RIZO, M LUZ MARIA POLICEMAN Unavailable Unavailable RIZO, M LUZ MARIA POLICEMAN Unavailable Unavailable RIZO, M LUZ MARIA POLICEMAN Unavailable Unavailable RIZO, M LUZ MARIA POLICEMAN Unavailable Unavailable RIZO, M LUZ MARIA POLICEMAN Unavailable Unavailable RIZO, M LUZ MARIA POLICEMAN Unavailable Unavailable RIZO, M LUZ MARIA POLICEMAN Unavailable Unavailable RIZO, M LUZ MARIA POLICEMAN Unavailable Unavailable RIZO, M LUZ MARIA POLICEMAN Unavailable Unavailable RIZO, M LUZ MARIA POLICEMAN Unavailable Unavailable RIZO, M LUZ MARIA POLICEMAN Unavailable Unavailable RIZO, M LUZ MARIA POLICEMAN Unavailable Unavailable RIZO, M LUZ MARIA POLICEMAN Unavailable Unavailable RIZO, M LUZ MARIA POLICEMAN Unavailable Unavailable RIZO, M LUZ MARIA POLICEMAN Unavailable Unavailable RIZO, M LUZ MARIA POLICEMAN Unavailable Unavailable RIZO, M LUZ MARIA POLICEMAN Unavailable Unavailable RIZO, M LUZ MARIA POLICEMAN Unavailable Unavailable RIZO, M LUZ MARIA POLICEMAN Unavailable Unavailable RIZO, M LUZ MARIA POLICEMAN Unavailable Unavailable RIZO, M LUZ MARIA POLICEMAN Unavailable Unavailable RIZO, M LUZ MARIA POLICEMAN Unavailable Unavailable RIZO, M LUZ MARIA POLICEMAN Unavailable Unavailable RIZO, M LUZ MARIA POLICEMAN Unavailable Unavailable RIZO, M LUZ MARIA POLICEMAN Unavailable Unavailable RIZO, M LUZ MARIA POLICEMAN Unavailable Unavailable RIZO, M LUZ MARIA POLICEMAN Unavailable Unavailable RIZO, M LUZ MARIA POLICEMAN Unavailable Unavailable RIZO, M LUZ MARIA POLICEMAN Unavailable Unavailable RIZO, M LUZ MARIA POLICEMAN Unavailable Unavailable RIZO, M LUZ MARIA POLICEMAN Unavailable Unavailable RIZO, M LUZ MARIA POLICEMAN Unavailable Unavailable RIZO, M LUZ MARIA POLICEMAN Unavailable Unavailable RIZO, M LUZ MARIA POLICEMAN Unavailable Unavailable RIZO, M LUZ MARIA POLICEMAN Unavailable Unavailable RIZO, M LUZ MARIA POLICEMAN Unavailable Unavailable RIZO, M LUZ MARIA POLICEMAN Unavailable Unavailable JOAVNA ADKINS MD Unavailable Unavailable JOVANA ADKINS MD [...] JED, JOVANA MILLAN Unavailable Unavailable JED, JOVANA MILLNA Unavailable Unavailable JED, JOVANA MILLAN Unavailable Unavailable [...] Unavailable Rachel SCOTT MD Unavailable Unavailable Rachel SOCTT MD Unavailable Unavailable Rachel SCOTT MD Unavailable [...] Rachel SCOTT MD Unavailable Unavailable Verbeck Jr, [place] Issac PA Unavailable Unavailable Verbeck Jr, [place] Iss[place] PA Unavailable Unavailable Verbeck Jr, Julian Issac PA Unavailable Unavailable Verbeck Jr, [place] Iss[place] PA Unavailable Unavailable Verbeck Jr, [place] Iss[place] PA Unavailable Unavailable Verbeck Jr, Julian Issac PA Unavailable Unavailable Verbeck Jr, [place] Iss[place] PA Unavailable Unavailable Verbeck Jr, Julian Issac PA Unavailable Unavailable Verbeck Jr, Julian Issac PA Unavailable Unavailable Verbeck Jr, [place] Iss[place] PA Unavailable Unavailable Verbeck Jr, Julian Issac PA Unavailable Unavailable Verbeck Jr, [place] Iss[place] PA Unavailable Unavailable Verbeck Jr, [place] Iss[place] PA Unavailable Unavailable Verbeck Jr, [place] Iss[place] PA Unavailable Unavailable Verbeck Jr, [place] PA Unavailable Unavailable Verbeck Jr, [place] Iss[place] PA Unavailable Unavailable Verbeck Jr, Julian Issac PA Unavailable Unavailable Verbeck Jr, Julian Issac PA Unavailable Unavailable Verbeck Jr, Julian Issac PA Unavailable Unavailable Verbeck Jr, Julian Issac PA Unavailable Unavailable Verbeck Jr, [place] PA Unavailable Unavailable Verbeck Jr, Julian Issac PA Unavailable Unavailable Verbeck Jr, [place] Iss[place] PA Unavailable Unavailable Verbeck Jr, [place] Iss[place] PA Unavailable Unavailable Verbeck Jr, Julian Issac PA Unavailable Unavailable Verbeck Jr, [place] Iss[place] PA Unavailable Unavailable Verbeck Jr, Julian Issac PA Unavailable Unavailable Verbeck Jr, [place] PA Unavailable Unavailable Verbeck Jr, [place] Iss[place] PA Unavailable Unavailable Verbeck Jr, [place] Iss[place] PA Unavailable Unavailable Verbeck Jr, [place] Iss[place] PA Unavailable Unavailable Verbeck Jr, [place] PA Unavailable Unavailable Verbeck Jr, Julian Issac PA Unavailable Unavailable Verbeck Jr, [place] Iss[place] PA Unavailable Unavailable Friedman, Bri Lili [...] Saab, Roberto Pardo MD Unavailable Unavailable Saab, Rboerto Prado MD Unavailable Unavailable Saab, Roberto Pardo MD Unavailable Unavailable Saab, Roberto Pardo MD Unavailable Unavailable SaabRoberto MD Unavailable Unavailable SaaboRberto MD Unavailable Unavailable Roberto Saab MD Unavailable [...] Unavailable Unavailable Roberto Saab MD Unavailable Unavailable SaabRobetro MD Unavailable Unavailable SaabRoberto MD Unavailable Unavailable [...] Unavailable Unavailable Roberto Saab MD Unavailable Unavailable SaabRobetro MD Unavailable Unavailable SaabRoberto MD Unavailable Unavailable SaabRoberto MD Unavailable Unavailable SaabRoberto MD Unavailable Unavailable SaabRoberto MD Unavailable Unavailable Roberto Saab MD Unavailable Unavailable Roberto Saab MD Unavailable Unavailable Roberto Saab MD Unavailable Unavailable Re-disclosure Warning The records [...] is protected by Article 27-F of the [facility] Public Health law. If you continue you may have access to information: Regarding HIV / AIDS; Provided by facilities licensed or operated by the [facility] Office of Mental Health; or Provided by the [facility] Office for People With Developmental Disabilities. If such information is present, then the following [facility] mandated warning applies: This information has been [...] law may result in a fine or intermediate sentence or both. A general authorization for the release of medical or other information is NOT sufficient authorization for further disc losure. Family History Family Member Name Family Member Gender Family Member Status Date o f Status Description Data Source(s) Unknown Unknown Problem [facility] Encounters Encounter Providers Location Date Indications Data Source(s ) Outpatient Attender: IKER SCOTT MD [facility] 01/2021 02:40:00 PM EST [facility] ([facility] [address] [facility] [address] 03/26/2020 12:00:00 AM EST eCW1 ([facility]) Outpatient Attender: JOVANA ADKINS MDReferrer: JOVANA VillarrealPETER-SJP.PETER 03/01/2020 03:00:32 PM EST - 03/01/2020 05:08:57 PM EST [facility] Outpatient Attender: JOVANA ADKINS MDReferrer: JOVANA STACY-SJP.PETER 03/01/2020 02:58:11 PM EST - 03/01/2020 05:08:42 PM EST [facility] Outpatient Attender: Carlos A Longoria 01:00:00 PM EST [facility] Outpatient Attender: Edvin Payne/Audrey delatorre 01/30/2020 01:15:00 PM EST [facility] ([facility] Outpatient Attender: Misty florentino 01/03/2020 02:15:00 PM EST [facility] ([facility] Outpatient Attender: JOVANA HERNANDEZ-SJP.PETER 12:00:00 AM EST - 12/29/2019 09:10:07 AM EST [facility] Outpatient Attender: JORDAN mora 12/28/2019 12:00:00 PM EST [facility] ([facility] Outpatient Attender: Misty florentino 10/31/2019 03:15:00 PM EDT [facility] ([facility] Outpatient Attender: Misty florentino 09/26/2019 03:00:00 PM EDT [facility] ([facility] Outpatient Attender: Misty florentino 09/07/2019 03:00:00 PM EDT [facility] ([facility] Outpatient Attender: Misty [facility] ce 2019 03:00:00 PM EDT [facility] ([facility] Outpatient Referrer: Edvin Saab MD 06/27/2019 04:32:0 0 PM EDT [facility] Outpatient Referrer: Edvin Saab MD 06/27/2019 02:04:0 0 PM EDT [facility] Outpatient Attender: IKER SCOTT MD [facility] 01:00:00 PM EDT [facility] Outpatient Attender: LUZ MARIA RIZO NP [facility] 05/07 02:30:00 PM EDT MED[facility] ([facility] Outpatient Attender: Issac Thomas Jr [facility] 04/2019 02:00:00 PM EST [facility] ([facility] Outpatient Referrer: IKER SCOTT MD 04/06/2019 08:32:00 AM EST [facility] Outpatient Referrer: IKER SCOTT MD 04/05/2019 09:24:00 AM EST [facility] Outpatient Referrer: IKER SCOTT MD 04/04/2019 03:28:00 PM EST [facility] Outpatient Attender: IKER SCOTT MD [facility] 11/2019 01:45:00 PM EST [facility] ([facility] Outpatient Attender: Lili robertson 04/02/2019 03:30:00 PM EST [facility] ([facility]) Immunizations Vaccine Date Status Description Data Source(s) New in 2011. IIV4 12/21/2019 01:59:00 PM EDT completed MED[facility] ([facility] ) New in 2012. IIV4 10/31/2019 03:53:00 PM [...] 02/19/2020 12:00:00 AM EST ORAL active [facility] ([facility] Omeprazole 20 MG Delayed Release Oral Capsule Omeprazole 02/19/2020 12:00:00 AM EST ORAL completed MED[facility] ([facility] buspirone hydrochloride 15 MG Oral [...] 01/03/2020 12:00:00 AM EST ORAL completed [facility] ([facility] Prednisone 20 MG Oral Tablet Prednisone 12/28/2019 12:00:00 AM EST ORAL active [facility] ([facility]) Omeprazole 20 MG Delayed Release Oral Ca psule omeprazole (PRILOSEC) 20 MG capsule omeprazole (PRILOSEC) 20 MG capsule 12/24/2019 12:00:00 AM EDT 20 mg Oral active Take 20 mg by mouth daily [facility] Sucralfate 1000 MG Oral Tablet sucralfate (CARAFATE) 1 g tablet sucralfate (CARAFATE) 1 g tablet 12/24/2019 12:00:00 AM EDT active TAKE ONE TABLET BY MOUTH FOUR TIMES A DAY [facility] 20 mg 12/24/2019 12:00:00 AM EDT capsule,delayed release (DR/EC) 30 TAKE ONE CAPSULE BY MOUTH EVERY DAY TAKE ONE CAPSULE BY MOUTH EVERY DAY SOLD: 12/25/2019 [facility] 1 gram 12/24/2019 12:00:00 AM EDT tablet 40 TAKE ONE TABLET BY MOUTH FOUR TIMES A DAY TAKE ONE TABLET BY MOUTH FOUR TIMES A DAY SOLD: 12/25/2019 [facility] buspirone hydrochloride 15 MG Oral Tablet BUSPIRONE HCL 11/25/2019 12:00:00 AM EDT tablet 90 TAKE ONE TABLET BY MOUTH THR EE TIMES A DAY TAKE ONE TABLET BY MOUTH THREE TIMES A DAY SOLD: 11/28/2019 [facility] buspirone hydrochloride 15 MG Oral Tablet busPIRone (B USPAR) 15 MG tablet busPIRone (BUSPAR) 15 MG tablet 11/25/2019 12:00:00 AM EDT 15 mg O ral active Take 15 mg by mouth 3 (three) ti mes a day [facility] 14 ACTUAT fluticasone furoate 0.1 MG/ACT UAT Dry Powder Inhaler [Arnuity] ARNUITY ELLIPTA 100 MCG/ACT AEPB ARNUITY ELLIPTA 100 MCG/ACT AEPB 10/23/2019 12:00:00 AM EDT active INHALE ONE PUFF B Y MOUTH EVERY DAY [facility] buspirone hydrochloride 15 MG Oral Tablet Buspirone HCL 10/20/2019 12:00:00 AM EDT ORAL active [facility] ([facility] buspirone hydrochloride 30 MG Oral Tablet BUSPIRONE HCL 09/22/2019 12:00:00 AM EDT tablet 60 TAKE ONE TABLET BY MOUTH TWI CE A DAY TAKE ONE TABLET BY MOUTH TWICE A DAY SOLD: 09/22/2019 [facility] buspirone hydrochloride 30 MG Oral Tablet Buspirone HCL 09/19/2019 12:00:00 AM EDT ORAL completed [facility] ([facility] Witch Miranda 500 MG/ML Medicated Pad [facility] Kavita Dorsey l 2019 12:00:00 AM EDT active M EDENT ([facility] Hydrocortisone 10 MG/ML Rectal Cream Hydrocortisone (Periana l) 2019 12:00:00 AM EDT completed MED[facility] ([facility] buspirone hydrochloride 15 MG Oral [...] 12:00:00 AM E DT ORAL active MED[facility] ([facility] 4 mg 05/08/2019 12:00:00 [...] MAXIMUM DAILY DOSE = 3 SOLD: 05/07/2019 [facility] 50 mcg/actuation 05/06/2019 12:00:00 AM [...] 04/25/2019 12:00:00 AM EST ORAL completed [facility] ([facility] 10 mg 04/03/2019 12:00:00 AM EST tablet 20 TAKE ONE TABLET BY MOUTH FOUR TIMES A DAY NEEDED WITH FOOD TAKE ONE TABLET BY MOUTH FOUR TIMES A DA Y NEEDED WITH FOOD SOLD: 04/03/2019 [facility] Toradol Injection Per 15 MG(30 MG) 04/02/2019 12:00:00 AM EST completed [facility] ([facility]) Medication administered onsite buspirone hydrochloride 10 MG [...] type / Coverage type Policy ID Covered alliance party ID Covered alliance party's relationship to batista Policy Batista Plan Information UMR [facility] [id number] SP [id number] UMR [id number] [place] [id number] UMR [facility] [id number] SP [id number] UMR [id number] UMR O [id number] O [id number] Umr Commercial [id number] Self [id number] [employer] Medigap Part B [id number] Self [id number] Umr/c/[employer] Health Maintenance Organization (HMO) [id number] Self [id number] [facility] (HMO) [id number] Self [id number] [facility] Organization (HMO) [id number] Self [id number] Umr Commercial [id number] Self [id number] Umr Commercial [id number] Self [id number] [employer] [id number] SP [id number] [employer] PPO O [id number] S [id number] [employer] U [id number] Self [id number] [employer] U [id number] Self [id number] [employer] Commercial [id number] Self [id number] [employer] [id number] SP [id number] [employer] Commercial [id number] Self [id number] [employer] Commercial Self [employer]-O/P [id number] 18 [id number] [employer] O [id number] S [id number] Problems, Conditions, and Diagnoses Code Display Name Description Problem Type Effective Dates Data Source(s) F41.9 Anxiety and depression Anxiety and depression 22922219 12/29/2019 12:00:00 AM EST [facility] K21.9 Gastroesophageal reflux disease without esophagitis Gastroesophageal reflux disease without esophagitis [id number] 12/29/2019 12:00:00 AM ES T [facility] J45.909 Uncomplicated asthma Uncomplicated asthma [id number] 12/29/2019 12:00:00 AM EST [facility] R06.02 SOB (shortness of breath) on exertion SO B (shortness of breath) on exertion [id number] 12/29/2019 12:00:00 AM EST [facility] R07.2 Precordial pain Precordial pain [id number] 12/29/2019 12:0 0:00 AM [facility] [id number] Asthma Asthma Problem 09/07/2019 12:00:00 AM ED T RUPA ([facility] R06.02 Shortness of breath Shortness of breath Diagnosis 0 03/01/2020 02:58:11 PM [facility] R07.2 Precordial pain Precordial pain Diagnosis 03/01/2020 02:5 8:11 PM [facility] Surgeries/Procedures Procedure Description Date Indications Data Source(s) Medication: 1% Lidocaine Dilutent (xylocaine) 03/26/19 12:00:00 AM EST eCW1 ([facility]) Spirometry 01/30/2020 12:00:00 AM EST Moreno MONTOYA ([facility] ) ECG ROUTINE ECG W/LEAST 12 LDS W/I&R POCT AMB EKG Routine 12/29/2019 9:11 AM EST Precordial pain 12/29/2019 02:11:[address] [facility] Precordial pain Electrocardiogram Complete 09/07/2019 12:00:00 AM EDT [facility] ([facility] BLOOD COUNT COMPLETE AUTO&AUTO DIFRNTL WBC COUNT CBC AND DIFFER ENTIAL Routine 09/07/2019 09/07/2019 12:00:00 AM EDT [facility] THYROID STIMULATING HORMONE TSH TSH Routine 09/07/2019 09/07/2019 12:00:00 AM EDT [facility] HEPATIC FUNCTION PANEL HEPATIC FUNCTION PANEL Routine 09/07/2019 09/07/2019 12:00:00 AM EDT [facility] BASIC METABOLIC PANEL CALCIUM TOTAL BASIC METABOLIC PANEL Routine 09/07/2019 09/07/2019 12:00:00 AM EDT [facility] Therapeutic, Prophylactic Or Diagnostic Injection Subq/Im 04/02/2019 12:00:00 AM EST [facility] ([facility] Results ID Date Data Source [id number] 03/03/2020 12:13:58 AM EST [facility] Name Value Range Interpretation Code Description Data Alicia rce(s) Supporting Document(s) &PDF [facility] OUBQZr3cCyAPNkUn98/NLKsyNKTgb3NzWUhqPHk5KEuiDHUlU1XtbYveOQaTRTaOVguPOsiMQMBhUNMw FcG [file] ICAgICAgICAgICAgICAgICAgICAgICAgICAgICAgICAgICAgICAgICAgICAgICAgICAgICAgICANCiAg ICAgICAgICAgICAgICAgICAgICAgICAgICAgICAgIC AgICAgICAgICAgICAgICAgICAgICAgICAgICAgICAgICAgICAgICAgICAgICAgICAgICAgICAgICAgIC AgICAgICANCiAgICAgICAgICAgICAgICAgICAgICAgICAgICAgICAgICAgICAgICAgICAgICAgICAgIC AgICAgICAgICAgICAgICAgICAgICAgICAgICAgICAg ICAgICAgICAgICAgICAgICANCiAgICAgICAgICAgICAgICAgICAgICAgICAgICAgICAgICAgICAgICAg ICAgICAgICAgICAgICAgICAgICAgICAgICAgICAgICAgICAgICAgICAgICAgICAgICAgICAgICAgICAN CiAgICAgICAgICAgICAgICAgICAgICAgICAgICAgIC AgICAgICAgICAgICAgICAgICAgICAgICAgICAgICAgICAgICAgICAgICAgICAgICAgICAgICAgICAgIC AgICAgICAgICANCiAgICAgICAgICAgICAgICAgICAgICAgICAgICAgICAgICAgICAgICAgICAgICAgIC AgICAgICAgICAgICAgICAgICAgICAgICAgICAgICAg ICAgICAgICAgICAgICAgICAgICANCiAgICAgICAgICAgICAgICAgICAgICAgICAgICAgICAgICAgICAg ICAgICAgICAgICAgICAgICAgICAgICAgICAgICAgICAgICAgICAgICAgICAgICAgICAgICAgICAgICAg ICANCiAgICAgICAgICAgICAgICAgICAgICAgICAgIC AgICAgICAgICAgICAgICAgICAgICAgICAgICAgICAgICAgICAgICAgICAgICAgICAgICAgICAgICAgIC AgICAgICAgICAgICANCiAgICAgICAgICAgICAgICAgICAgICAgICAgICAgICAgICAgICAgICAgICAgIC AgICAgICAgICAgICAgICAgICAgICAgICAgICAgICAg ICAgICAgICAgICAgICAgICAgICAgICANCiAgICAgICAgICAgICAgICAgICAgICAgICAgICAgICAgICAg ICAgICAgICAgICAgICAgICAgICAgICAgICAgICAgICAgICAgICAgICAgICAgICAgICAgICAgICAgICAg ICAgICANCjw/rMGvS7lwqIFpimO9W8pcZo3QCt1CFB 8ew8KnCKPjSRvnrjJwTtrOAvDfAAAqTkwPPkn2STfiXZ9DfQKrZ9JdG7ChPDwzYU2VPJPeKLKfsTMyRB BfTDYdNcD3UDEuVPwmWV4RpAVsBOffYKUcRPAlCuBkXSWyHN5QBVVoZ144jzEqFn2NDe2GYlIdFG3trq 4ANxIeSCBlFktWRuf7NHgnMA2QzRLiA7NzcUMol8rC VtKoF7ECQLB1ITXyMd0OTDGxNzCyGVFyDSayOP4gDXJmTTTFxJrtycX3LY7MXT9rquXbJZ8BPlWzHb8p Te0TLiRdI2HbH4JoMZSaKAXWRKtlMH5MWUMmJLY2MMRyPXStOWPPKoGyI13bBL1ML1Vle95bRjJ1BMQn YjEtUAcoCS84pPvjezCnmACxqYtlSQ1NPf2+DQplbm DrGabZYweuFFWUSrFlGacCBlBtPUXnFDMdOVGhJnO6LdDwBn9AFXHvLDGsXXWqXtUoBTOuXWJrKHamQZ ZlWMFrRiMlWRAmSTGcNA1TAcRcVQHaTcHlMWNqVBGcTAXuwa1POXIcXNOsDDU7YFQdLBHcIZMdBFwqCX MpPKCfAiD4ZCLnRNXeCQ8BPxRwDBNgDCM4HLKxQJNh DOPrnj5QSTDyQAKaGRA4PKNvYRVsDESuHLymDDKbPHA0XcQ9XVAiIOPpGC5JDgHfNAOxCCI5JfvfUXTc OPMrwd6AOCUcXALfKQaeKNDlTRZwPBEhBOriMIApUJS0RLF0UKQnLPXyKA9WAyKoEQIhGWgfUkCsZRAz DFOwfj6XIDFoNPPvFxS8JfUmVRGmSYVhZSbcZXKmIZ E9WYU4XDLeVNZpMO6KRuRuFWUxDYVjVMRuGKUqGCXfhq7JKQArNZTgXqRsTtVbSMVxPWPeRDntPKOmOA FpAJN1JRMjUUFnAE8NNsDlKRQaPNUgFisfJRMqENGrvm4QEODzUATlLnQrBxZvITYsRYFwGEgkABJgBY R3VOL7DYGoRSVbZB5GNmNnKKLiERSeFHKgOQNdUVTb xx7EXKKvTPTfWODdMaFhSLLrDXAsPDqkIALoUTYyVnEeUUIsKHAlEZ1PRkJjJZFmCsEnXsnlCXVhWKEl xm6KLGCgGCZgQcR0AUFbQYRzYGGuYStsFKBfGXJ5YOQ2WUDtDSIvOD1HCrJlMEyzREVEBpu0LWufP2a8 QCOePm9JE0Ucv6AbGiHhCTLTWFifLN1fpiUgOWMgWw 0VD0lQBcpfSpFkGum3KTX5FhSeNeGbZQmbLBOmErU6UxWcF3WvMI3cTAZ2W2HrCNj7EVIaFiImOwB5K8 J3BVFeDRa5JNGnLKN3NgDxRV3ONa8NJxB9IPB0pCPoBs8RPhTnXCLWDbOaXT3QFTd= ID Date Data Source [id number] 03/02/2020 11:21:29 PM EST [facility] Name Value Range Interpretation Code Description Data Alicia rce(s) Supporting Document(s) &PDF [facility] WMPWVm3pLbHQSfKb48/OCQohBDAlm6VeITyuHAy8ACrlVZRsO6AtwXnhPZrBQBqWUudZUqsAZXLpZDMw nhW VkV4hqbMOyclGGj7Ajl9EloCauwufPVdCfLr1BEsDlQC8sod7XSBNfCF9mlo8ORBR0MF8BmCn9VMTtQ2 SsDQCmYETbw0KuXS1GBK6auMngBifjEO3+KYdwHPA8osOrgG8IFXByYmvuM9kB/16g/wOBRdEsEFvkkH JpPNAhbCH161qm5dISR1Hm26vGP2Wgscb/vnNK+r3S jjMP5dduXw/fF4Nx0se7HCFR+ee/Vjx1cUJb/uq6BQo5bp1Lj/2TzZWA1aYx0CbFys80ARaAnQGdbXYP W4GK8/3pTy9Bcv2vbZt0VDaFwWRc/arV/+EjbViSxYCuS9W9Jqu1ETfdW7drYWhW7n30+7p8zaMX2Cil lD6H8hYhRIMIqjJreoXWYyxXmhUBQmVcKEgN9W6D9N 7U9O8RtUcxMjSFR/CuUyouZ6J9d0QwwBwD/wX7NO3OGnCnXYw7HZsNzi+JqAsVJ87v+L1b8c7TnBiKcB HzMVtxNLNxYAeXPuQ11CRhDjBw14fwv6YsVzhCNXl9oLklIb7roxDseEaWdQPinYWeoth/leonard+P2mL/9O [file] family dentist+rO0L7IaxmC4KgsSWQRWquHaiB7HJtldtHPju1Dmrmerkby+kYp+3BHsBUmr8BMMFU+1GzggLbp0K [file] DQogICAgICAgICAgICAgICAgICAgICAgICAgICAgIC AgICAgICAgICAgICAgICAgICAgICAgICAgICAgICAgICAgICAgICAgICAgICAgICAgICAgICAgICAgIC AgICAgICAgICAgDQogICAgICAgICAgICAgICAgICAgICAgICAgICAgICAgICAgICAgICAgICAgICAgIC AgICAgICAgICAgICAgICAgICAgICAgICAgICAgICAg ICAgICAgICAgICAgICAgICAgICAgDQogICAgICAgICAgICAgICAgICAgICAgICAgICAgICAgICAgICAg ICAgICAgICAgICAgICAgICAgICAgICAgICAgICAgICAgICAgICAgICAgICAgICAgICAgICAgICAgICAg ICAgDQogICAgICAgICAgICAgICAgICAgICAgICAgIC AgICAgICAgICAgICAgICAgICAgICAgICAgICAgICAgICAgICAgICAgICAgICAgICAgICAgICAgICAgIC AgICAgICAgICAgICAgDQogICAgICAgICAgICAgICAgICAgICAgICAgICAgICAgICAgICAgICAgICAgIC AgICAgICAgICAgICAgICAgICAgICAgICAgICAgICAg ICAgICAgICAgICAgICAgICAgICAgICAgDQogICAgICAgICAgICAgICAgICAgICAgICAgICAgICAgICAg ICAgICAgICAgICAgICAgICAgICAgICAgICAgICAgICAgICAgICAgICAgICAgICAgICAgICAgICAgICAg ICAgICAgDQogICAgICAgICAgICAgICAgICAgICAgIC AgICAgICAgICAgICAgICAgICAgICAgICAgICAgICAgICAgICAgICAgICAgICAgICAgICAgICAgICAgIC AgICAgICAgICAgICAgICAgDQogICAgICAgICAgICAgICAgICAgICAgICAgICAgICAgICAgICAgICAgIC AgICAgICAgICAgICAgICAgICAgICAgICAgICAgICAg ICAgICAgICAgICAgICAgICAgICAgICAgICAgDQogICAgICAgICAgICAgICAgICAgICAgICAgICAgICAg ICAgICAgICAgICAgICAgICAgICAgICAgICAgICAgICAgICAgICAgICAgICAgICAgICAgICAgICAgICAg ICAgICAgICAgDQogICAgICAgICAgICAgICAgICAgIC AgICAgICAgICAgICAgICAgICAgICAgICAgICAgICAgICAgICAgICAgICAgICAgICAgICAgICAgICAgIC RzDWIaOUYfAKTeCVLfGFAyESObHYj8S9omPNZjJOTgMD1eKAv9Pf7+EKmAZuNaESM6rsGhxB2DZP2nu8 IbPSzoHZZrh9UkAAm7RS9ZRKMiULjcYD0ARSbdmn2L XXYqOPTtrKVEv8ptXhVoOOB3HMZgYogvFM1POFVjH6gfnvFnHGVoEFECSDltBWXQFX4GYmDkB1JwpC59 IDINCj4+DSrzifFzPcrELpKaMVNiz8XzMQv7HL3DFTCsBSisKQ2NVWOvnW6fFAcfZU2WXjHqZBOwFDFC QjNqJ97cgZLfZSg4U4WkIcBySEVbJsvrPRBoPKfwUc FtZXMgWyBdDQogID4+ID4+HDjwOC0IWKbioyWnMMDvRg7VBBFiMIH1KSDoxQKpCrurKYGOJCipRH1DrX MgPVC5iC6qWVwwMGDrOIHdX6dZUqXqcPspNI27iLscjvPyqEBmJBw+Al0BBN8mu1DzPLb2hjAsSFjfOL WlNRhtXBNnNQZeVYOfKJU2DIW6OTGJLqDuVPJdWQMy CZyqIBZlAYUvgt4LZBXrGCP5UqtvZKYqFPYnUIGeSXopBTSfMQL8ZtAsAZAxDRHaUH5IRfHeBJBmIUNk SYmnCLJlJETilu9PODXeRENdCfBsQZMlRZFlZQChZFoiKCTwHZVcLZF4PVAxSUIxAW8VSgWlIQGoJFV8 XhbrXACrZBXoob3QYSPlSAIhRBg8WxXjUHHhFTOvOY nqMSQoWAV5RXZqVIQeEWGoYS3PSgObOTQvOVA3ZZxrINCaPPBaul9IHVPmAGZaCrE5NQPiIHKpLVMqNB atFOYyYIC5UHM2AIFhBRHjNK8AJdDeZCCoZDouUDNmGXCwLOJkwh0KESMzKKSwHNCoYHZvCENkWXAoGA drCCYeEYFmJhg1JZQxMEMlJE1LLoPkUBLmYAO1RQLx EQMfJMAvif6KTUCfXOHnLkvgVuRmYDSpVUAqENmvEHUrQAW4PKDxVVAiATCcND8PHuLhKJVbNGFzNRAu VWBtYXArre1NRWCnRSRnWWI2QbIwMXSgYWVqQRvuYRNpJVO7OKO5WQNkTXUaJO2YVaTaNNShYVD6NNHg DJGhTAAdgd1AHFSfHRKkADS8KYIlMYQnDOMcUUagWF RfXTA0GtGlUWIkDYEiYG7UJlBoKUDjMxD0WPIrKWFzQFEudn3GDGUfIJTtNiD0TLIaQOFnEFQdYWqmYZ JsMJEuXPU7MVVeZMKzBD7OVeIjCUWwLkA7GTMgATCzHNIdgp3QYACjVYVlHmw3GyKsENIuMOEvUSleOD YmLRP3MYq7UAZyYYTuQW2GSbCtLAKdEDZgUuLeYKNh ESHcuz3DOSOvBMK8FJI6DFUdIGIpLUTiPVacFKTjCFQ3GIwgLKYxMEFcBX4FWfZnYTRcHNHnIFCiIHRs XIFbin6IAQSwJVM3ZdX8BgWwPEWbJEXkUCiyVRAbWTC5KcicWMTfLFOrFP6HNqYkXJIoCiU1AiAoRFZy HRDyut7HFUAwACW4VspvSLBcHJCsBUQpGRbvZPLnZF W2FUWcIXToDVRuTJ8FEqUkIMXvQkn6KCsfDVGsVVIjbb6GqTUhoHlgpl5EQOqRTm5TjHuuSIQdISmrBy 2xwIW1RZHlBWHAPa9OiyQgIMJfOVIUZDdbBWGzGDh0BuikKauxLVUgHfnxHRVmIML7Z7MvLzErILW5El M6DrA7WHJmJXCfHhG9WNW2TNN0IEC5OReeG8V6JqU9 NTVjNDU+OT1iJJo+Uc8Hs3KmyxD4usFqZWj4HKR7FV5AFIHSO3YSVy== ID Date Data Source [id number] 01/30/2020 12:47:00 PM EST [facility] ([facility]) Name Value Range Interpretation Code Description Data Alicia rce(s) Supporting Document(s) PDFReport Laboratory test result [facility] ([facility]) FVC-Pred 3.33 L [facility] ([facility]) FVC-%Pred-Pre 118 L [facility] ([facility]) FVC-Pre 3.94 L [facility] ([facility]) Fev1-Pred 2.72 L [facility] ([facility]) FVC-LLN 2.69 L [facility] ([facility]) Fev1-Pre 3.11 L [facility] ([facility]) Fev1-LLN 2.19 L [facility] ([facility]) Fev1-%Pred-Pre 114 L [facility] ([facility], ) Fev6-Pred 3.27 L [facility] ([facility]) Fev6-Pre 3.94 L [facility] ([facility]) Fev6-%Pred-Pre 120 L [facility] ([facility]) Fev6-LLN 2.65 L [facility] ([facility]) Ytq0xgr-Vnfn 82 % [facility] ([facility]) Aum8yjc-Jkg 79 % [facility] ([facility]) Udy8mpv-%Pred-Pre 96 % [facility] ([facility]) Iyc7qyq-Djec 98 % [facility] ([facility]) Pbc4txj-Eck 100 % [facility] ([facility]) Nka6mug-QRS 72 % [facility] ([facility]) Uxr6opq-%Pred-Pre 101 % [facility] ([facility]) FEFMax-Pre 5.00 L/E/sec [facility] ([facility]) FEFMax-Pred 6.51 L/E/sec [facility] ([facility]) Fro1437-Vwls 2.93 L/E/sec [facility] ([facility]) FEFMax-%Pred-Pre 76 L/E/sec [facility] ([facility]) FEFMax-LLN 4.95 L/E/sec [facility] ([facility]) Nkv9413-Cdl 2.92 L/E/sec [facility] ([facility]) Bcz8892-%Pred-Pre 99 L/E/sec [facility] ([facility]) Qwo1486-TGT 1.80 L/E/sec [facility] ([facility]) ExpTime-Pre 6.74 sec [facility] ([facility]) Zus4aox2-Ldpj 84 % [facility] ([facility]) Sgg7tao3-Uqo 79 % [facility] ([facility]) Yzl4qex2-%Pred-Pre 94 % [facility] ([facility]) Ukp9yxj3-SVH 75 % [facility] ([facility]) ID Date Data Source [id number] 12/28/2019 12:00:00 AM EST [facility] Name Value Range Interpretation Code Description Data Alicia rce(s) Supporting Document(s) SARS coronavirus 2 Ag [facility] This lab was ordered by [facility] and reported by [facility]. ID Date Data Source [id number] 12/24/2019 11:06:00 AM EST [facility] ([facility] Name Value Range Interpretation Code Description Data Alicia rce(s) Supporting Document(s) Laboratory test finding (navigational concept) 0.00 ng/mL 0 .00-0.08 Normal (applies to non-numeric results) [facility] ID Date Data Source [id number] 12/24/2019 11:06:00 AM EST [facility] Name Value Range Interpretation Code Description Data Alicia rce(s) Supporting Document(s) Troponin I.cardiac [Mass/volume] in Serum or Plasma Laboratory test result [facility] ([facility] Laboratory test finding (navigational concept) 0.00 ng/mL 0 .00-0.08 Normal (applies to non-numeric results) [facility] ID Date Data Source [id number] 12/24/2019 09:07:00 AM EST [facility] ([facility] Name Value Range Interpretation Code Description Data Alicia rce(s) Supporting Document(s) Laboratory test finding (navigational concept) 0.00 ng/mL 0 .00-0.08 Normal (applies to non-numeric results) [facility] ID Date Data Source [id number] 12/24/2019 09:07:00 AM EST [facility] ([facility] Name Value Range Interpretation Code Description Data Alicia rce(s) Supporting Document(s) Laboratory test finding (navigational concept) 0.00 ng/mL 0 .00-0.08 Normal (applies to non-numeric results) [facility] ([facility] Troponin I.cardiac [Mass/volume] in Serum or Plasma Laboratory test result [facility] ([facility] ID Date Data Source [id number] 12/24/2019 08:08:00 AM EST [facility] ([facility] Name Value Range Interpretation Code Description Data Alicia rce(s) Supporting Document(s) Lipoprotein lipase [Enzymatic activity/volume] in Serum or P lasma 129 U/L 73-393 Normal (applies to non-numeric results) [facility] ([facility] Thyrotropin [Units/volume] in Serum or Plasma 1.330 uIU/ML 0. 358-3.740 Normal (applies to non-numeric results) [facility] Natriuretic peptide.B prohormone N-Terminal [Mass/volu me] in Serum or Plasma 84 pg/mL Normal (applies to non-numeric results) [facility] ([facility] Choriogonadotropin.beta subunit ( test) [Pres ence] in Serum or Plasma Laboratory test result Normal (applies to non-numeric results) [facility] ([facility] Thyroxine (T4) free [Mass/volume] in Serum or Plasma 0.96 ng/dL 0.76-1.46 Normal (applies to non-numeric results) [facility] ([facility] ID Date Data Source [id number] 12/24/2019 08:08:00 AM EST [facility] ([facility] Name Value Range Interpretation Code Description Data Alicia rce(s) Supporting Document(s) Glucose, Fasting 96 mg/dL 70-100 Normal (applies to non-numeric results) [facility] ([facility] Blood Urea Nitrogen 12 mg/dL 7-18 Normal (applies to non-nume ezequiel results) [facility] ([facility] Glomerular Filtration Rate 57.7 Below low normal [facility] ([facility] <content>Units are mL/min/1.73 m2</content>
<content></content>
<content>Chronic Kidney Disease Staging per NKF:</content>
<content></content>
<content>Stage I & II GFR >=60 Normal to Mildly Decreased</content>
<content>Stage III GFR 30- 59 Moderately Decreased</content>
<content>Stage IV GFR 15-29 Severely Decreased</content>
<content>Stage V GFR <15 Very Little GFR Left</content>
<content>ESRD GFR <15 on [employer]</content>
<content></content> Sodium Level 141 meq/L 136-145 Normal (applies to non-numeric res ults) [facility] ([facility] Creatinine For GFR 1.11 mg/dL 0.55-1.30 Normal (applies to non -numeric results) [facility] ([facility] Carbon Dioxide Level 27 meq/L 21-32 Normal (applies to non-num grace results) [facility] ([facility] Potassium Serum 3.9 meq/L 3.5-5.1 Normal (applies to non-numeric results) [facility] ([facility] Chloride Level 109 meq/L 98-107 Above high normal [facility] ([facility] Anion Gap 5 meq/L 8-16 Below low normal [facility] ( [facility] Calcium Level 8.8 mg/dL 8.5-10.1 Normal (applies to non-numeric re sults) [facility] ([facility] ID Date Data Source [id number] 12/24/2019 08:08:00 AM EST [facility] ([facility] Name Value Range Interpretation Code Description Data Alicia rce(s) Supporting Document(s) Alt/SGPT 15 U/L 12-78 Normal (applies to non-numeric resul ts) [facility] ([facility] Ast/Sgot 11 U/L 7-37 Normal (applies to non-numeric resul ts) [facility] ([facility] Alkaline Phosphatase 60 U/L 45-117 Normal (applies to non-num grace results) [facility] ([facility] Bilirubin,Total 0.5 mg/dL 0.2-1.0 Normal (applies to non-numeric results) [facility] ([facility] Bilirubin,Direct 0.1 mg/dL 0.0-0.2 Normal (applies to non-numeric results) [facility] ([facility] Total Protein 7.2 GM/DL 6.4-8.2 Normal (applies to non-numeric re sults) [facility] ([facility] Albumin/Globulin Ratio 1.3 1.2-2.2 Normal (applies to non-n umeric results) [facility] ([facility] Albumin 4.0 GM/DL 3.2-5.2 Normal (applies to non-numeric resul ts) [facility] ([facility] ID Date Data Source [id number] 12/24/2019 08:08:00 AM EST [facility] ([facility] Name Value Range Interpretation Code Description Data Alicia rce(s) Supporting Document(s) aPTT in Platelet poor plasma by Coagulation assay 27.9 s 24.2-38.5 Normal (applies to non-numeric results) [facility] ([facility] Fibrin D-dimer FEU [Mass/volume] in Platelet poor plasma Lab oratory test result Normal (applies to non-numeric results) [facility] ([facility] ID Date Data Source [id number] 12/24/2019 08:08:00 AM EST [facility] Name Value Range Interpretation Code Description Data Alicia rce(s) Supporting Document(s) Inr 1.02 Normal (applies to non-numeric resul ts) [facility] ([facility] THERAPUTIC HUMAN INR VALUES INDICATIONS [...] [facility] ID Date Data Source [id number] 12/24/2019 08:08:00 AM EST [facility] ([facility] Name Value Range Interpretation Code Description Data Alicia rce(s) Supporting Document(s) White Blood Count 7.8 10 4.0-10.0 Normal (applies to non-numeri c results) [facility] ([facility] Hemoglobin 14.0 g/dL 12.0-15.5 [...] resul ts) [facility] ([facility] [place] % 5.5 % 0.0-5.0 Above high normal [facility] ([facility] Baso % 0.6 % 0.0-1.0 Normal (applies to non-numeric resul ts) [facility] ([facility] Eos % 3.3 % 0.0-3.0 Above high normal [facility] ([facility] Neutrophils # 5.1 10 1.5-8.5 Normal (applies to non-numeric re sults) [facility] ([facility] Immature Granulocyte % 0.4 % 0-3.0 Normal (applies to non-n umeric results) [facility] ([facility] Nucleated Red Blood Cell % 0.0 % 0-0 Normal (applies to n on-numeric results) [facility] ([facility] Lymph # 2.0 10 1.5-5.0 Normal (applies to non-numeric resul ts) [facility] ([facility] [place] # 0.4 10 0.0-0.8 Normal (applies to non-numeric resul ts) [facility] ([facility] Baso # 0.1 10 0.0-0.2 Normal (applies to non-numeric resul ts) [facility] ([facility] Eos # 0.3 10 0.0-0.5 Normal (applies to non-numeric resul ts) [facility] ([facility] ID Date Data Source [id number] 10/31/2019 04:10:00 PM EDT [facility] ([facility] Name Value Range Interpretation Code Description Data Alicia rce(s) Supporting Document(s) WBC 8.7 10E3/uL 4.1-10.9 [facility] ([facility] NORMAL RANGES Age WBC [...] g/dL 12.0-18.0 [facility] ([facility] NORMAL RANGES Age WBC [...] HCT IS 5% LESS SOURCE FOR DATA: [employer] 1800 OPERATION MANUAL( AUTOMATED BLOOD COUNTS AND DIFF.) APPENDIX B-3 RBC 4.50 10E6/uL 4.20-6.30 [facility] ([facility] NORMAL RANGES Age WBC RBC [...] HCT IS 5% LESS SOURCE FOR DATA: [employer] 1800 OPERATION MANUAL( AUTOMATED BLOOD COUNTS AND DIFF.) APPENDIX B-3 HCT 42.1 % 37.0-51.0 [facility] NORMAL RANGES Age WBC RBC HGB HCT MCV PLT Adult M 4.1-10.9 4.20-6.30 12.0-18.0 37.0-51.0 440 Adult F 4.1-10.9 4.04-5.48 12.0-18.0 37.0-51.0 440 0 -1 Yr 5.0-20.0 3.9-5.9 15-18 MV: [...] DIFF.) APPENDIX B-3 MCV 93.6 fL 80.0-97.0 [facility] NORMAL RANGES Age WBC RBC HGB [...] DIFF.) APPENDIX B-3 MCHC 34.9 g/dL 31.0-36.0 [facility] ([facility] NORMAL RANGES Age WBC [...] HCT IS 5% LESS SOURCE FOR DATA: [employer] 1800 OPERATION MANUAL( AUTOMATED BLOOD COUNTS AND DIFF.) APPENDIX B-3 MCH 32.7 pg 26.0-32.0 Above high normal [facility] ([facility] NORMAL RANGES Age WBC RBC [...] HCT IS 5% LESS SOURCE FOR DATA: [employer] 1800 OPERATION MANUAL( AUTOMATED BLOOD COUNTS AND DIFF.) APPENDIX B-3 PLT 317 10E3/uL 140-440 [facility] ([facility] NORMAL RANGES Age WBC RBC [...] HCT IS 5% LESS SOURCE FOR DATA: [employer] 1800 OPERATION MANUAL( AUTOMATED BLOOD COUNTS AND DIFF.) APPENDIX B-3 RDW-CV 12.8 % 11.5-14.5 [facility] ([facility] NORMAL RANGES Age WBC [...] HCT IS 5% LESS SOURCE FOR DATA: [employer] 1800 OPERATION MANUAL( AUTOMATED BLOOD COUNTS AND DIFF.) APPENDIX B-3 Neut% 64.4 % 37.0-92.0 [facility] NORMAL RANGES Age WBC [...] DIFF.) APPENDIX B-3 Lym% 26.5 % 10.0-58.5 [facility] ([facility] NORMAL RANGES Age WBC [...] DIFF.) APPENDIX B-3 MXD% 9.1 % 0.1-24.0 [facility] ([facility] NORMAL RANGES Age WBC RBC [...] HCT IS 5% LESS SOURCE FOR DATA: [employer] 1800 OPERATION MANUAL( AUTOMATED BLOOD COUNTS AND DIFF.) APPENDIX B-3 Neut# 5.6 % 2.0-7.8 [facility] ([facility] NORMAL RANGES Age WBC RBC [...] HCT IS 5% LESS SOURCE FOR DATA: [employer] 1800 OPERATION MANUAL( AUTOMATED BLOOD COUNTS AND DIFF.) APPENDIX B-3 Lym# 2.3 10E3/uL 0.6-4.1 [facility] ([facility] NORMAL RANGES Age WBC RBC [...] HCT IS 5% LESS SOURCE FOR DATA: [employer] 1800 OPERATION MANUAL( AUTOMATED BLOOD COUNTS AND DIFF.) APPENDIX B-3 MXD# 0.8 10E3/uL 0.0-1.8 [facility] ([facility] NORMAL RANGES Age WBC RBC HGB HCT MCV PLT Adult M 4.1-10.9 4.20-6.30 12.0-18.0 37.0-51.0 80-97 140-440 Adult F 4.1-10.9 4.04-5.48 12.0-18.0 37.0-51.0 140440 [...] HCT IS 5% LESS SOURCE FOR DATA: [employer] 1800 OPERATION MANUAL( AUTOMATED BLOOD COUNTS AND DIFF.) APPENDIX B-3 MPV 9.9 fL 9.0-13.0 [facility] ([facility] NORMAL RANGES Age WBC RBC HGB HCT MCV PLT Adult M 4.1-10.9 4.20-6.30 12.0-18.0 37.0-51.0 140-440 Adult F 4.1-10.9 4.04-5.48 12.0-18.0 37.0-51.0 140440 [...] HCT IS 5% LESS SOURCE FOR DATA: [employer] 1800 OPERATION MANUAL( AUTOMATED BLOOD COUNTS AND DIFF.) APPENDIX B-3 ID Date Data Source [id number] 09/07/2019 03:39:00 PM EDT [facility] ([facility] Name Value Range Interpretation Code Description Data Alicia rce(s) Supporting Document(s) Glu 95 mg/dL 70-110 [facility] NORMAL RANGES Age WBC [...] HCT IS 5% LESS SOURCE FOR DATA: [employer] 1800 OPERATION MANUAL( AUTOMATED BLOOD COUNTS [...] above >32 mL/min Normal BUN 13 mg/dL 8- [facility] NORMAL RANGES [...] HCT IS 5% LESS SOURCE FOR DATA: [employer] 1800 OPERATION MANUAL( AUTOMATED BLOOD COUNTS AND [...] >32 mL/min Normal Creat 1.0 mg/dL 0.5-1.0 [facility] ([facility] NORMAL [...] HCT IS 5% LESS SOURCE FOR DATA: [employer] 1800 OPERATION MANUAL( AUTOMATED BLOOD COUNTS AND [...] 12.9 Calc [facility] ([facility] NORMAL RANGES Age WBC [...] HCT IS 5% LESS SOURCE FOR DATA: [employer] 1800 OPERATION MANUAL( AUTOMATED BLOOD COUNTS AND [...] >32 mL/min Normal K 4.1 mmol/L 3.5-5.1 [facility] ([facility] NORMAL RANGES Age [...] HCT IS 5% LESS SOURCE FOR DATA: [employer] 1800 OPERATION MANUAL( AUTOMATED BLOOD COUNTS AND [...] >32 mL/min Normal CL 105.2 mmol/L 98.0-107.0 [facility] ([facility] NORMAL RANGES [...] HCT IS 5% LESS SOURCE FOR DATA: [employer] 1800 OPERATION MANUAL( AUTOMATED BLOOD COUNTS AND [...] >32 mL/min Normal Na 139 mmol/L 136-145 [facility] ([facility] NORMAL RANGES Age [...] HCT IS 5% LESS SOURCE FOR DATA: [employer] 1800 OPERATION MANUAL( AUTOMATED BLOOD COUNTS AND [...] >32 mL/min Normal CA 9.5 mg/dL 8.6-10.2 [facility] NORMAL RANGES [...] HCT IS 5% LESS SOURCE FOR DATA: [employer] 1800 OPERATION MANUAL( AUTOMATED BLOOD COUNTS AND [...] >32 mL/min Normal Co2 22.7 mmol/L 22.0-29.0 [facility] NORMAL RANGES Age WBC RBC [...] HCT IS 5% LESS SOURCE FOR DATA: [employer] 1800 OPERATION MANUAL( AUTOMATED BLOOD COUNTS AND [...] >32 mL/min Normal Alb 4.6 g/dL 3.4-4.8 [facility] NORMAL RANGES Age WBC [...] g/dL 6.6-8.7 [facility] NORMAL RANGES Age WBC [...] HCT IS 5% LESS SOURCE FOR DATA: [employer] 1800 OPERATION MANUAL( AUTOMATED BLOOD COUNTS [...] >32 mL/min Normal A/G Ratio 2.0 Calc [facility] NORMAL RANGES [...] HCT IS 5% LESS SOURCE FOR DATA: [employer] 1800 OPERATION MANUAL( AUTOMATED BLOOD COUNTS AND [...] >32 mL/min Normal Alp 50.8 U/L 35-129 [facility] NORMAL RANGES [...] HCT IS 5% LESS SOURCE FOR DATA: [employer] 1800 OPERATION MANUAL( AUTOMATED BLOOD COUNTS AND [...] above >32 mL/min Normal Globulin 2.3 Calc [facility] ([facility] NORMAL RANGES [...] HCT IS 5% LESS SOURCE FOR DATA: [employer] 1800 OPERATION MANUAL( AUTOMATED BLOOD COUNTS AND [...] >32 mL/min Normal Tbili 0.17 mg/dL 0.0-1.2 [facility] ([facility] NORMAL RANGES Age WBC RBC [...] HCT IS 5% LESS SOURCE FOR DATA: [employer] 1800 OPERATION MANUAL( AUTOMATED BLOOD COUNTS AND [...] mL/min Normal Alt (SGPT) 8 U/L 0-41 [facility] ([facility] NORMAL RANGES Age WBC RBC [...] HCT IS 5% LESS SOURCE FOR DATA: [employer] 1800 OPERATION MANUAL( AUTOMATED BLOOD COUNTS AND [...] mL/min Normal Ast (Sgot) 13 U/L 0-40 [facility] NORMAL RANGES Age WBC [...] HCT IS 5% LESS SOURCE FOR DATA: [employer] 1800 OPERATION MANUAL( AUTOMATED BLOOD COUNTS AND [...] 15 mmol/L [facility] NORMAL RANGES Age WBC [...] HCT IS 5% LESS SOURCE FOR DATA: [employer] 1800 OPERATION MANUAL( AUTOMATED BLOOD COUNTS AND [...] mL/min Normal Osmolality-Calculated 276.5 Calc [facility] ([facility] NORMAL RANGES Age WBC [...] HCT IS 5% LESS SOURCE FOR DATA: [employer] 1800 OPERATION MANUAL( AUTOMATED BLOOD COUNTS AND [...] mL/min Normal eGFR 81 # [facility] ( [facility] NORMAL RANGES Age WBC [...] and above >32 mL/min Normal eGFR Non-Afr. Moldovan 70 # [facility] ([facility] NORMAL RANGES Age [...] HCT IS 5% LESS SOURCE FOR DATA: [employer] 1800 OPERATION MANUAL( AUTOMATED BLOOD COUNTS AND [...] >32 mL/min Normal ID Date Data Source [id number] 09/07/2019 03:39:00 PM EDT [facility] ([facility] Name Value Range Interpretation Code Description Data Alicia rce(s) Supporting Document(s) RBC 4.49 10E6/uL .20-630 [facility] ([facility] NORMAL RANGES [...] HCT IS 5% LESS SOURCE FOR DATA: [employer] [employer] 1800 OPERATION MANUAL( AUTOMATED BLOOD COUNTS AND [...] 10E3/uL 4.1-10.9 [facility] ([facility] NORMAL RANGES Age WBC RBC [...] HCT IS 5% LESS SOURCE FOR DATA: [employer] [employer] 1800 OPERATION MANUAL( AUTOMATED BLOOD COUNTS AND [...] >32 mL/min Normal MCV 94.2 fL 80.0-97.0 [facility] ([facility] NORMAL [...] HCT IS 5% LESS SOURCE FOR DATA: [facility] 1800 OPERATION MANUAL( AUTOMATED BLOOD COUNTS AND [...] >32 mL/min Normal HCT 42.3 % 37.0-51.0 [facility] ([facility] NORMAL RANGES [...] HCT IS 5% LESS SOURCE FOR DATA: [facility] 1800 OPERATION MANUAL( AUTOMATED BLOOD COUNTS AND [...] >32 mL/min Normal HGB 14.5 g/dL 12.0-18.0 [facility] ([facility] NORMAL [...] HCT IS 5% LESS SOURCE FOR DATA: [employer] 1800 OPERATION MANUAL( AUTOMATED BLOOD COUNTS AND [...] high normal [facility] ([facility] NORMAL RANGES Age WBC [...] HCT IS 5% LESS SOURCE FOR DATA: [employer] 1800 OPERATION MANUAL( AUTOMATED BLOOD COUNTS AND [...] g/dL 31.0-36.0 [facility] NORMAL RANGES Age WBC [...] 10E3/uL 140-440 [facility] ([facility] NORMAL RANGES Age WBC RBC [...] HCT IS 5% LESS SOURCE FOR DATA: [employer] 1800 OPERATION MANUAL( AUTOMATED BLOOD COUNTS [...] % 11.5-14.5 [facility] NORMAL RANGES [...] HCT IS 5% LESS SOURCE FOR DATA: [employer] 1800 OPERATION MANUAL( AUTOMATED BLOOD COUNTS AND [...] % 10.0-58.5 [facility] NORMAL RANGES [...] HCT IS 5% LESS SOURCE FOR DATA: [employer] 1800 OPERATION MANUAL( AUTOMATED BLOOD COUNTS AND [...] 10E3/uL 0.6-4.1 [facility] ([facility] NORMAL RANGES Age WBC RBC [...] HCT IS 5% LESS SOURCE FOR DATA: [employer] 1800 OPERATION MANUAL( AUTOMATED BLOOD COUNTS AND [...] >32 mL/min Normal Neut% 59.3 % 37.0-92.0 [facility] ([facility] NORMAL [...] HCT IS 5% LESS SOURCE FOR DATA: [employer] 1800 OPERATION MANUAL( AUTOMATED BLOOD COUNTS AND [...] >32 mL/min Normal MXD% 10.0 % 0.1-24.0 [facility] ([facility] NORMAL RANGES [...] HCT IS 5% LESS SOURCE FOR DATA: [employer] 1800 OPERATION MANUAL( AUTOMATED BLOOD COUNTS AND [...] >32 mL/min Normal Neut# 3.8 % 2.0-7.8 [facility] ([facility] NORMAL RANGES [...] HCT IS 5% LESS SOURCE FOR DATA: [employer] 1800 OPERATION MANUAL( AUTOMATED BLOOD COUNTS AND [...] >32 mL/min Normal MXD# 0.7 10E3/uL 0.0-1.8 [facility] ([facility] NORMAL RANGES Age WBC RBC [...] HCT IS 5% LESS SOURCE FOR DATA: [employer] 1800 OPERATION MANUAL( AUTOMATED BLOOD COUNTS AND [...] >32 mL/min Normal MPV 10.3 fL 9.0-13.0 [facility] ([facility] NORMAL RANGES Age WBC [...] HCT IS 5% LESS SOURCE FOR DATA: [employer] 1800 OPERATION MANUAL( AUTOMATED BLOOD COUNTS AND [...] >32 mL/min Normal ID Date Data Source [id number] 09/07/2019 03:38:00 PM EDT [facility] ([facility] Name Value Range Interpretation Code Description Data Alicia rce(s) Supporting Document(s) Thyrotropin [Units/volume] in Serum or Plasma 1.241 ulU/mL 0.60-4.8 [facility] ([facility] ID Date Data Source [id number] 06/27/2019 12:00:00 AM EDT [facility] Ed[facility] Saab MD Patient Name: HEMANT [id number] [facility] Date of : 1980[place] Date of Exam: 06/27/2019TURNER [place] [id number]#: Fax: [phone] EXAM: CHEST (2 VIEW) X-RAYCLINICAL [...] rce(s) Supporting Document(s) ID Date Data Source [id number] 05/06/2019 02:53:00 PM EDT [facility] ([facility] Name Value Range Interpretation Code Description Data Alicia rce(s) Supporting Document(s) Lipoprotein lipase [Enzymatic activity/volume] in Serum or Plasm a 94 U/L 73-393 Normal (applies to non-numeric results) [facility] ([facility] Choriogonadotropin.beta subunit ( test) [Pres ence] in Serum or Plasma Laboratory test result Normal (applies to non-numeric results) [facility] ([facility] Thyrotropin [Units/volume] in Serum or Plasma 0.511 uIU/ML 0. 358-3.740 Normal (applies to non-numeric results) [facility] ([facility] ID Date Data Source [id number] 05/06/2019 02:53:00 PM EDT [facility] ([facility] Name Value Range Interpretation Code Description Data Alicia rce(s) Supporting Document(s) Blood Urea Nitrogen 10 mg/dL 7-18 Normal (applies to non-nume ezequiel results) [facility] ([facility] Glucose, Fasting 94 mg/dL 70-100 Normal (applies to non-numeric results) [facility] ([facility] Sodium Level 141 meq/L 136-145 Normal (applies to non-numeric res ults) [facility] ([facility] Creatinine For GFR 1.10 mg/dL 0.55-1.30 Normal (applies to non -numeric results) [facility] ([facility] Glomerular Filtration Rate 58.6 Normal (applies to n on-numeric results) [facility] ([facility] <content>Units are mL/min/1.73 m2</content>
<content></content>
<content>Chronic Kidney Disease Staging per NKF:</content>
<content></content>
<content>Stage I & II GFR >=60 Normal to Mildly Decreased</content>
<content>Stage III GFR 30- 59 Moderately Decreased</content>
<content>Stage IV GFR 15-29 Severely Decreased</content>
<content>Stage V GFR <15 Very Little GFR Left</content>
<content>ESRD GFR <15 on [employer]</content>
<content></content> Potassium Serum 4.0 meq/L 3.5-5.1 Normal (applies to non-numeric results) [facility] ([facility] Chloride Level 110 meq/L 98-107 Above high normal [facility] ([facility] Carbon Dioxide Level 24 meq/L 21-32 Normal (applies to non-num grace results) [facility] ([facility] Calcium Level 8.5 mg/dL 8.5-10.1 Normal (applies to non-numeric re sults) [facility] ([facility] Anion Gap 7 meq/L 8-16 Below low normal [facility] ( [facility] ID Date Data Source [id number] 05/06/2019 02:53:00 PM EDT [facility] ([facility] Name Value Range Interpretation Code Description Data Alicia rce(s) Supporting Document(s) Ast/Sgot 10 U/L 7-37 Normal (applies to non-numeric resul ts) [facility] ([facility] Alt/SGPT 12 U/L 12-78 Normal (applies to non-numeric resul ts) [facility] ([facility] Alkaline Phosphatase 62 U/L 45-117 Normal (applies to non-num grace results) [facility] ([facility] Bilirubin,Total 0.3 mg/dL 0.2-1.0 Normal (applies to non-numeric results) [facility] ([facility] Total Protein 6.8 GM/DL 6.4-8.2 Normal (applies to non-numeric re sults) [facility] ([facility] Bilirubin,Direct Laboratory test result 0.0-0.2 Normal ( applies to non-numeric results) [facility] ([facility] ) Albumin 3.6 GM/DL 3.2-5.2 Normal (applies to non-numeric resul ts) [facility] ([facility] Albumin/Globulin Ratio 1.13 1.00-1.93 Normal (applies to non-numeric results) [facility] ([facility] ID Date Data Source [id number] 05/06/2019 02:53:00 PM EDT [facility] Name Value Range Interpretation Code Description Data Alicia rce(s) Supporting Document(s) CPK Creatine Phosphokinase 42 U/L 26-192 Barbara l (applies to non-numeric results) [facility] ([facility] ) CK-MB Value Mass Laboratory test result Normal ( applies to non-numeric results) [facility] ([facility] ) Troponin I Laboratory test result Normal (applies to non-n umeric results) [facility] ([facility] <content>Troponin I Reference Interval f or Siemens [place] LOCI:</content>
<content></content>
<content>99th Percentile= 0.00-0.045 ng/ml</content>
<content></content>
[...] grace results) [facility] ([facility] <content>DIAGNOSIS CRITERIA</content>
<content>MMB ng/ml Relative Index (RI)</content>
<content>NON-AMI < or = 5 N/A</content>
<content>QUICK ZONE > 5 < or = 4</content>
<content>AMI > 5 > 4</content>
<content></content> ID Date Data Source [id number] 05/06/2019 02:53:00 PM EDT [facility] ([facility] Name Value Range Interpretation Code Description Data Alicia rce(s) Supporting Document(s) White Blood Count 7.5 10 4.0-10.0 Normal (applies to non-numeri c results) [facility] ([facility] Hematocrit 41.4 % 36.0-47.0 Normal (applies to non-numeric resul ts) [facility] ([facility] Red Blood Count 4.51 10 4.00-5.40 Normal (applies to non-numeric results) [facility] ([facility] Hemoglobin 14.1 g/dL 12.0-15.5 Normal (applies to non-numeric resul ts) [facility] ([facility] Mean Corpuscular Volume 91.8 fl 80.0-96.0 Normal ( applies to non-numeric results) [facility] ([facility] ) Mean Corpuscular HGB Conc 34.1 g/dL 32.0-36.5 Normal (applies to non-numeric results) [facility] ([facility] ) Mean Corpuscular Hemoglobin 31.3 pg 27.0-33.0 Norm al (applies to non-numeric results) [facility] ([facility] ) Red Cell Distribution Width 12.3 % 11.5-14.5 Norm al (applies to non-numeric results) [facility] ([facility] ) Lymph % 13.3 % 24.0-44.0 Below low normal [facility] ( [facility] Platelet Count, Automated 250 10 150-450 Normal (applies to non-numeric results) [facility] ([facility] ) Neutrophils % 75.1 % 36.0-66.0 Above high normal [facility] ([facility] [place] % 9.1 % 0.0-5.0 Above high normal [facility] ([facility] Eos % 1.7 % 0.0-3.0 Normal (applies to non-numeric resul ts) [facility] ([facility] Baso % 0.4 % 0.0-1.0 Normal (applies to non-numeric resul ts) [facility] ([facility] Nucleated Red Blood Cell % 0.0 % 0-0 Normal (applies to n on-numeric results) [facility] ([facility] Immature Granulocyte % 0.4 % 0-3.0 Normal (applies to non-n umeric results) [facility] ([facility] Neutrophils # 5.6 10 1.5-8.5 Normal (applies to non-numeric re sults) [facility] ([facility] Eos # 0.1 10 0.0-0.5 Normal (applies to non-numeric resul ts) [facility] ([facility] Lymph # 1.0 10 1.5-5.0 Below low normal [facility] ( [facility] [place] # 0.7 10 0.0-0.8 Normal (applies to non-numeric resul ts) [facility] ([facility] Baso # 0.0 10 0.0-0.2 Normal (applies to non-numeric resul ts) [facility] ([facility] Procedure Social History Code Duration Value Status Description Data Source(s ) Smoking 03/26/2020 12:00:00 AM EST Current Smoker completed Curre nt Smoker eCW1 ([facility]) Alcohol intake 12/29/2019 12:00:00 AM EST Never completed [facility] Cigarettes smoked current (pack per day) - Reported 12/29/19 20 12:00:00 AM EST UNK completed [facility] Smoking 12/29/2019 12:00:00 AM EST Current every day smoker co mpleted Current every day smoker [facility] Vital Signs ID Date Data Source UNK Name Value Range Interpretation Code Description Data Source(s) Systolic blood pressure 104 mm[Hg] 104 mm[Hg] M EDRUBENS ([facility] Oxygen saturation in Arterial blood by Pulse oximetry 98 % 98 % [facility] ([facility] Body mass index (BMI) [Ratio] 25.8 kg/m2 25.8 k g/m2 [facility] ([facility] [place] body weight 110 [lb_av] 110 [lb_av] [facility] T ([facility] Body weight 141.00 [lb_av] 141.00 [lb_av] [facility] T ([facility] Body height 62 [in_i] 62 [in_i] [facility] ([facility] 5'2" Respiratory rate 16 /min 16 /min [facility] ( [facility] Heart rate 95 /min 95 /min [facility] ([facility] Body temperature 97.0 [degF] 97.0 [degF] [facility] ([facility] Diastolic blood pressure 82 mm[Hg] 82 mm[Hg] [facility] ([facility] Diastolic blood pressure 76 mm[Hg] 76 mm[Hg] eCW1 ([facility]) Systolic blood pressure 126 mm[Hg] 126 mm[Hg] e CW1 ([facility]) Body mass index (BMI) [Ratio] 29.10 kg/m2 29.10 kg/m2 [facility] ([facility]) Body height [in_i] eCW1 ([facility]) Body weight 149 [lb_av] 149 [lb_av] eCW1 ([facility]) Body surface area Derived from formula 1.60 m2 1.60 m2 [facility] ([facility]) Body weight 61.236 kg 61.236 kg [facility] ([facility]) [place] body weight 105 [lb_av] 105 [lb_av] [facility] T ([facility]) Body mass index (BMI) [Ratio] 25.5 kg/m2 25.5 k g/m2 [facility] ([facility]) Body weight 135.00 [lb_av] 135.00 [lb_av] [facility] Body height 61 [in_i] 61 [in_i] [facility] ([facility]) 5'1" Oxygen saturation in Arterial blood by Pulse oximetry 97 % 97 % [facility] ([facility] Body mass index (BMI) [Ratio] 26.3 kg/m2 26.3 k g/m2 [facility] ([facility] [place] body weight 110 [lb_av] 110 [lb_av] [facility] T ([facility] Body weight 144.00 [lb_av] 144.00 [lb_av] [facility] ([facility] Body height 62 [in_i] 62 [in_i] [facility] ([facility] 5'2" Respiratory rate 16 /min 16 /min [facility] ( [facility] Heart rate 97 /min 97 /min [facility] ([facility] Body temperature 98.1 [degF] 98.1 [degF] [facility] ([facility] Diastolic blood pressure 72 mm[Hg] 72 mm[Hg] [facility] ([facility] Systolic blood pressure 112 mm[Hg] 112 mm[Hg] M [facility] ([facility] Body surface area Derived from formula 1.63 m2 1.63 m2 [facility] ([facility]) Body weight 64.411 kg 64.411 kg [facility] ([facility]) [place] body weight 105 [lb_av] 105 [lb_av] [facility] T ([facility]) Body mass index (BMI) [Ratio] 26.8 kg/m2 26.8 k g/m2 [facility] ([facility]) Body weight 142.00 [lb_av] 142.00 [lb_av] [facility] T ([facility]) Body height 61 [in_i] 61 [in_i] [facility] ([facility]) 5'1" Oxygen saturation in Arterial blood by Pulse oximetry 98 % 98 % [facility] ([facility]) Heart rate 78 /min 78 /min [facility] ([facility]) Diastolic blood pressure 82 mm[Hg] 82 mm[Hg] [facility] ([facility]) Systolic blood pressure 104 mm[Hg] 104 mm[Hg] [facility] Oxygen saturation in Arterial blood by Pulse oximetry 98 % 98 % [facility] ([facility] Body mass index (BMI) [Ratio] 25.1 kg/m2 25.1 k g/m2 [facility] ([facility] [place] body weight 110 [lb_av] 110 [lb_av] [facility] T ([facility] Body weight 137.00 [lb_av] 137.00 [lb_av] [facility] T ([facility] Body height 62 [in_i] 62 [in_i] [facility] ([facility] 5'2" Respiratory rate 16 /min 16 /min [facility] ( [facility] Heart rate 92 /min 92 /min [facility] ([facility] Body temperature 97.8 [degF] 97.8 [degF] [facility] ([facility] Diastolic blood pressure 78 mm[Hg] 78 mm[Hg] MED[facility]ENS ([facility] Systolic blood pressure 102 mm[Hg] 102 mm[Hg] M [facility]ENT ([facility] Diastolic blood pressure 70 mm[Hg] 70 mm[Hg] [facility] Systolic blood pressure 100 mm[Hg] 100 mm[Hg] [facility] Oxygen saturation in Arterial blood by Pulse oximetry 99 % 99 % [facility] Body mass index (BMI) [Ratio] 25.06 kg/m2 25.06 kg/m2 [facility] Body weight 62.143 kg 62.143 kg [facility] Body height 157.5 cm 157.5 cm [facility] Heart rate 84 /min 84 /min [facility] Body mass index (BMI) [Ratio] 24.7 kg/m2 24.7 k g/m2 [facility] ([facility], [facility]) Body height 62 [in_i] 62 [in_i] [facility] ([facility], [facility]) 5'2" Body weight 135.00 [lb_av] 135.00 [lb_av] [facility] T ([facility], [facility]) Body temperature 98.3 [degF] 98.3 [degF] [facility] ([facility], [facility]) Oxygen saturation in Arterial blood by Pulse oximetry 99 % 99 % [facility] ([facility], [facility]) Respiratory rate 16 /min 16 /min [facility] ( [facility], [facility]) Heart rate 100 /min 100 /min [facility] ([facility], [facility]) Diastolic blood pressure 77 mm[Hg] 77 mm[Hg] [facility] ([facility], [facility]) Systolic blood pressure 108 mm[Hg] 108 mm[Hg] [facility] ([facility], [facility]) Oxygen saturation in Arterial blood by Pulse oximetry 97 % 97 % [facility] ([facility] Body mass index (BMI) [Ratio] 24.5 kg/m2 24.5 k g/m2 [facility] ([facility] [place] body weight 110 [lb_av] 110 [lb_av] [facility] T ([facility] Body weight 134.00 [lb_av] 134.00 [lb_av] [facility] T ([facility] Body height 62 [in_i] 62 [in_i] [facility] ([facility] 5'2" Respiratory rate [...] k g/m2 [facility] ([facility] [place] body weight 110 [lb_av] 110 [lb_av] [facility] T ([facility] Body weight 133.00 [lb_av] 133.00 [lb_av] [facility] T ([facility] Body height 62 [in_i] 62 [in_i] [facility] ([facility] 5'2" Respiratory rate 16 [...] weight 130.00 [lb_av] 130.00 [lb_av] [facility] T ([facility] Body height 62 [in_i] 62 [in_i] [facility] ([facility] 5'2" Respiratory rate 18 /min 18 /min [facility] ( [facility] Heart rate 80 /min 80 /min [facility] ([facility] Body temperature 98.0 [degF] 98.0 [degF] [facility] ([facility] Diastolic blood pressure 68 mm[Hg] 68 mm[Hg] [facility] ([facility] Systolic blood pressure 102 mm[Hg] 102 mm[Hg] M [facility] ([facility] Oxygen saturation in Arterial blood by Pulse oximetry 98 % 98 % [facility] ([facility] Body mass index (BMI) [Ratio] 24.3 kg/m2 24.3 k g/m2 [facility] ([facility] Body weight 133.00 [lb_av] 133.00 [lb_av] [facility] T ([facility] Body height 62 [in_i] 62 [in_i] [facility] ([facility] 5'2" Respiratory rate 16 /min 16 /min [facility] ( [facility] Heart rate 86 /min 86 /min [facility] ([facility] Body temperature 98.2 [degF] 98.2 [degF] [facility] ([facility] Diastolic blood pressure 78 mm[Hg] 78 mm[Hg] [facility] ([facility] Systolic blood pressure 120 mm[Hg] 120 mm[Hg] M [facility] ([facility] Body surface area Derived from formula 1.62 m2 1.62 m2 [facility] ([facility], ) Body weight 63.050 kg 63.050 kg [facility] ([facility], ) [place] body weight 105 [lb_av] 105 [lb_av] MED[facility] T ([facility], ) Body mass index (BMI) [Ratio] 26.3 kg/m2 26.3 k g/m2 [facility] ([facility], ) Body weight 139.00 [lb_av] 139.00 [lb_av] [facility] T ([facility]) Body height 61 [in_i] 61 [in_i] [facility] ([facility]) 5'1" Oxygen saturation in Arterial blood by Pulse oximetry 97 % 97 % [facility] ([facility]) Room Air Heart rate 85 /min 85 /min [facility] ([facility]) Diastolic blood pressure 70 mm[Hg] 70 mm[Hg] [facility] ([facility]) Systolic blood pressure 104 mm[Hg] 104 mm[Hg] M EDENT ([facility]) Body mass index (BMI) [Ratio] 25.2 kg/m2 25.2 k g/m2 [facility] ([facility] Body weight 138.00 [lb_av] 138.00 [lb_av] [facility] T ([facility] Body height 62 [in_i] 62 [in_i] [facility] ([facility] 5'2" Respiratory rate 16 /min 16 /min [facility] ( [facility] Heart rate 68 /min 68 /min [facility] ([facility] Body temperature 98.2 [degF] 98.2 [degF] [facility] ([facility] Diastolic blood pressure 66 mm[Hg] 66 mm[Hg] [facility] ([facility] Systolic blood pressure 102 mm[Hg] 102 mm[Hg] [facility] Oxygen saturation in Arterial blood by Pulse oximetry 98 % 98 % [facility] ([facility] Body mass index (BMI) [Ratio] 25.2 kg/m2 25.2 k g/m2 [facility] ([facility] Body weight 138.00 [lb_av] 138.00 [lb_av] [facility] T ([facility] Body height 62 [in_i] 62 [in_i] [facility] ([facility] 5'2" Respiratory rate 16 [...] Body height 62 [in_i] 62 [in_i] [facility] ([facility] 5'2" Respiratory rate 16 [...] Body height 62 [in_i] 62 [in_i] [facility] ([facility] 5'2" Respiratory rate 16 /min 16 /min [facility] ( [facility] [facility] Heart rate 92 /min 92 /min MED[facility] ([facility] Body temperature 98.6 [degF] 98.6 [degF] [facility] ([facility] Diastolic blood pressure 78 mm[Hg] 78 mm[Hg] [facility] ([facility] Body weight 139.00 [lb_av] 139.00 [lb_av] MEDEN T ([facility], [facility]) Body temperature 98.3 [degF] 98.3 [degF] [facility] ([facility], [facility]) Oxygen saturation in Arterial blood by Pulse oximetry 99 % 99 % [facility] ([facility], [facility]) Respiratory rate 16 /min 16 /min [facility] ( [facility], [facility]) Heart rate 74 /min 74 /min MEDENT ([facility], [facility]) Diastolic blood pressure 80 mm[Hg] 80 mm[Hg] [facility] ([facility], [facility]) Systolic blood pressure 114 mm[Hg] 114 mm[Hg] [facility], [facility]) Body mass index (BMI) [Ratio] 25.4 kg/m2 25.4 k g/m2 [facility] ([facility], [facility]) Body height 62 [in_i] 62 [in_i] [facility] ([facility], [facility]) 5'2" Patient Treatment Plan of Care Planned Activity Planned Date Details Description Data Source (s) Sucralfate 1000 MG Oral Tablet 12/24/2019 12:00:00 AM EDT [facility] Omeprazole 20 MG Delayed Release Oral Capsule 12/24/2019 12:00:00 A M EDT [facility] buspirone hydrochloride 15 MG Oral Tablet 11/25/2019 12:00:00 AM ED T [facility] 14 ACTUAT fluticasone furoate 0.1 MG/ACTUAT Dry Powder Inhaler [Arnuity] 10/23/2019 12:00:00 AM EDT [facility]
[2020-04-12] MEDS ORDERED: diphenhydrAMINE 50MG/ML VIAL (J1200) IV ONE (12:45)
[2020-04-12] MEDS ORDERED: NS 1,000 ML IV ONE (12:45)
[2020-04-12] MEDS ORDERED: KETOROLAC 30 MG/ML 1ML VIAL IV ONE (12:45)
[2020-04-12 15:19] VITALS: BP 100/60
== END 2020-04-12 15:33 | disposition home or self-care (01) ==
LOC: M ED 11:20
DX: G44.209 Tension-type headache, unspecified, not intractable (principal); E86.0 Dehydration; R19.7 Diarrhea, unspecified; J45.909 Unspecified asthma, uncomplicated; K21.9 Gastro-esophageal reflux disease without esophagitis; Z88.1 Allergy status to other antibiotic agents; Z91.013 Allergy to seafood; Z79.51 Long term (current) use of inhaled steroids; Z79.899 Other long term (current) drug therapy
CPT/HCPCS: 80047; 96361; 96374; 96375; 99284; J1200; J1885

== ENCOUNTER → 2020-07-01 | Outpatient (CLI) | payer OTHER ==
--- NOTE | 2020-07-02 09:19 | REPMRS ---
Patient History The patient states she had a clinical breast exam in May 23, 2020. Family history of breast cancer at age 82 in maternal grandmother. No Hormone Replacement Therapy Patient states no breast complaints today. Patient has signed MRS History Sheet. Digital Woman Screen Mammo: July 01, 2020 - Exam #: [id number] Bilateral CC and MLO view(s) were taken. Technologist: Candace Friedman, Dishing Machine Operator Prior study comparison: April 28, 2017, right breast diagnostic unilateral mammo, performed at [facility]. FINDINGS: The breast tissue is extremely dense which could obscure a lesion on mammography. Screening. Digital screening (2D) mammography was performed bilaterally. Additionally, breast tomosynthesis (3D) mammography was perfomed bilaterally in the CC and MLO projections. Today's examination is the initial screening examination.Only a prior diagnostic right mammogram is available for comparisom. By history, the patient has no complaints of a palpable breast abnormality or other significant breast complaints. The breasts are symmetric in size and shape. Dense heterogenous fibroglandular elements are seen bilaterally to such a degree that the sensitivity of the mammogram in detecting cancer is decreased. There are no masses. There is no internal architectural distortion. There are no suspicious microcalcific clusters. Skin thickening or nipple retraction is not present. IMPRESSION: BI-RADS Category 2- Benign Findings. There is no evidence of malignant alteration of the breasts. Followup examination recommended in one year. The Volpara volumetric breast density category is D, the breasts are extremely dense which lowers the sensitivity of mammography. This mammogram was read with the assistance of [employer] Penemarie K Murphy,an FDA approved computer aided detection system for mammography. The lifetime Tyrer-Cuzick score is 19.8 % Negative x-ray reports should not delay surgical consultation if a dominant or clinically suspicious mass is present. Not all breast cancers can be identified by mammography. Therefore, we recommend that you continue to perform regular breast self-examination and physical examination and then promptly contact your physician of any concerns or changes. Adenosis and dense breasts may obscure an underlying neoplasm. Assessment: BI-RADS/ACR category 2 mammogram. Benign Findings. Recommendation Routine screening mammogram of both breasts in 1 year. Electronically Signed By: Arcadio Becerra DO 07/02/20 0918
== END ==
LOC: M WHC 16:02
PROVIDERS: ATTEND Advanced Practice Midwife
DX: Z12.31 Encounter for screening mammogram for malignant neoplasm of breast (principal)

== ENCOUNTER → 2020-08-09 | Outpatient (CLI) | payer OTHER ==
[2020-08-09 18:31] LABS: ALBUMIN 4.1 GM/DL (3.2-5.2); ALT/SGPT 17 U/L (12-78); BILIRUBIN,TOTAL 0.3 MG/DL (0.2-1.0); BLOOD UREA NITROGEN 11 MG/DL (7-18); CARBON DIOXIDE LEVEL 27 MEQ/L (21-32); CHLORIDE LEVEL 108 MEQ/L (98-107); CHOLESTEROL LEVEL 159 MG/DL (<200); CHOLESTEROL RISK RATIO 2.038 (<5); CREATININE FOR GFR 1.02 MG/DL (0.55-1.30); GLOMERULAR FILTRATION RATE > 60.0 (>58); GLUCOSE, FASTING 112 MG/DL (70-100); HDL CHOLESTEROL 78 MG/DL (>40); LDL CHOLESTEROL 72 MG/DL (<100); NON-HDL-C 81 MG/DL; POTASSIUM SERUM 4.4 MEQ/L (3.5-5.1); SODIUM LEVEL 138 MEQ/L (136-145); TOTAL PROTEIN 7.5 GM/DL (6.4-8.2); TRIGLYCERIDES LEVEL 45 MG/DL (<150)
--- NOTE | 2020-08-11 10:07 | REP ---
INDICATION: ABNORMAL FINDING OF LUNG FIELD/ LABS 2ND COMPARISON: 11/05/2017 TECHNIQUE: Axial noncontrast images from the thoracic inlet to the upper abdomen with coronal and sagittal reformations. This CT examination was performed using the following dose reduction techniques: Automated exposure control, adjustment of mA and/or kv according to the patient's size, and use of iterative reconstruction technique. FINDINGS: The bilateral lung morales are well aerated, and relatively clear. Old calcified granuloma in the left upper lobe is again identified and stable. No acute consolidation, significant nodule, or mass. No effusion. No pneumothorax. Tracheobronchial tree demonstrates small 8 mm nodular density and 4 mm nodular density above the level of the anila which represent new findings and nonspecific. These may represent small retained phlegmonous material rather than true lesion. No adenopathy. Thoracic aorta, pulmonary vasculature, and heart/pericardium are normal for noncontrast evaluation. Skeletal structures intact. IMPRESSION: 1. Lung morales are relatively clear/stable. Stable calcified granuloma noted. No significant pleuroparenchymal process. 2. Nodular densities in the trachea likely phlegmonous secretions. However axial lesion cannot be excluded. Consider short-term 3 month follow-up. <Electronically signed by Johan Robles > 08/11/20 1499
== END ==
LOC: M RAD 15:38
PROVIDERS: ATTEND Internal Medicine Pulmonary Disease
DX: R91.8 Other nonspecific abnormal finding of lung field (principal)

== ENCOUNTER 2020-09-05 03:40 | Emergency (ER) | payer OTHER ==
[~2020-09-05] VITALS: Ht 157.5 cm; Wt 62.0 kg
[2020-09-05] MEDS ORDERED: ACET-841 PO (03:48)
[2020-09-05 04:56] LABS: BASO # 0.1 10^3/uL (0.0-0.2); BASO % 0.7 % (0.0-1.0); EOS # 0.2 10^3/uL (0.0-0.5); EOS % 2.7 % (0.0-3.0); HEMATOCRIT 43.7 % (36.0-47.0); HEMOGLOBIN 14.6 g/dl (12.0-15.5); LYMPH % 27.1 % (24.0-44.0); MEAN CORPUSCULAR HEMOGLOBIN 31.5 pg (27.0-33.0); MEAN CORPUSCULAR HGB CONC 33.4 g/dl (32.0-36.5); MEAN CORPUSCULAR VOLUME 94.2 fl (80.0-96.0); MONO # 0.5 10^3/uL (0.0-0.8); MONO % 6.5 % (2.0-8.0); NEUTROPHILS # 4.6 10^3/uL (1.5-8.5); NEUTROPHILS % 62.1 % (36.0-66.0); PLATELET COUNT, AUTOMATED 275 10^3/uL (150-450); RED BLOOD COUNT 4.64 10^6/uL (4.00-5.40); WHITE BLOOD COUNT 7.4 10^3/uL (4.0-10.0)
[2020-09-05 05:08] LABS: INR 0.91; PROTHROMBIN TIME 12.4 SECONDS (12.5-14.3)
[2020-09-05 05:09] LABS: PARTIAL THROMBOPLASTIN TIME 28.4 SECONDS (24.2-38.5)
[2020-09-05 05:24] LABS: D-DIMER QUANT < 270 ng/ml (<500)
[2020-09-05 05:31] LABS: HCG, SERUM QUALITATIVE NEGATIVE (NEGATIVE)
[2020-09-05 05:34] LABS: ALBUMIN 3.7 GM/DL (3.2-5.2); ALT/SGPT 26 U/L (12-78); BILIRUBIN,DIRECT < 0.1 MG/DL (0.0-0.2); BILIRUBIN,TOTAL 0.2 MG/DL (0.2-1.0); BLOOD UREA NITROGEN 13 MG/DL (7-18); CALCIUM LEVEL 8.7 MG/DL (8.5-10.1); CARBON DIOXIDE LEVEL 26 MEQ/L (21-32); CHLORIDE LEVEL 111 MEQ/L (98-107); CK-MB VALUE MASS < 1.0 NG/ML (<3.6); CPK CREATINE PHOSPHOKINASE 29 U/L (26-192); CREATININE FOR GFR 0.99 MG/DL (0.55-1.30); GLOMERULAR FILTRATION RATE > 60.0 (>58); GLUCOSE, FASTING 93 MG/DL (70-100); LIPASE 179 U/L (73-393); MB/CK RELATIVE INDEX 3.45 (< OR =4); NT-PRO BNP 28 PG/ML (<125); POTASSIUM SERUM 3.9 MEQ/L (3.5-5.1); SODIUM LEVEL 142 MEQ/L (136-145); TOTAL PROTEIN 7.2 GM/DL (6.4-8.2); TROPONIN I < 0.02 NG/ML (< 0.10)
--- NOTE | 2020-09-05 05:36 | ECGEPIP ---
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
[2020-09-05 07:15] VITALS: BP 109/73
--- NOTE | 2020-09-05 08:13 | REPVR ---
PROCEDURE INFORMATION: Exam: XR Chest Exam date and time: 09/05/2020 5:48 AM Age: 40 years old Clinical indication: Other: Chest pain TECHNIQUE: Imaging protocol: XR of the chest. Views: 1 view. COMPARISON: PA PORTABLE CHEST X-RAY 12/24/2019 8:48:28 AM FINDINGS: Lungs: A small calcified granuloma is again present in the left mid lung laterally. The lungs are otherwise clear. Pleural spaces: Unremarkable. No pleural effusion. No pneumothorax. Heart/Mediastinum: The cardiomediastinal silhouette is fairly stable in appearance. Bones/joints: Unremarkable. IMPRESSION: No evidence for acute pulmonary disease. Electronically signed by: Carlos A Osorio On 09/05/2020 08:13:05 AM
--- NOTE | 2020-09-05 08:15 | REPVR ---
PROCEDURE INFORMATION: Exam: US Duplex Right Lower Extremity Veins, Limited Exam date and time: 09/05/2020 6:51 AM Age: 40 years old Clinical indication: Pain; Leg, upper; Right; Additional info: Le pain TECHNIQUE: Imaging protocol: Real-time Duplex ultrasound of the Right Lower Extremity with 2-D villeda scale, color Doppler flow and spectral waveform analysis with image documentation. Limited exam was focused on the right lower extremity veins. COMPARISON: US Duplex, Ext LOWER veins, bilat 11/05/2017 4:24 PM FINDINGS: Right deep veins: Unremarkable. The common femoral, femoral, proximal profunda femoral and popliteal veins are patent without thrombus. Normal Doppler waveforms. Normal compressibility and/or augmentation response. The posterior tibial and peroneal veins in the calf are patent as well, as is the contralateral common femoral vein. Right superficial veins: Unremarkable. Saphenofemoral junction is patent without thrombus. Soft tissues: Unremarkable. IMPRESSION: No deep venous thrombus demonstrated in the right lower extremity. Electronically signed by: Carlos A Osorio On 09/05/2020 08:15:09 AM
== END 2020-09-05 07:21 | disposition home or self-care (01) ==
LOC: M ED 03:40
DX: R00.2 Palpitations (principal); J45.909 Unspecified asthma, uncomplicated; K21.9 Gastro-esophageal reflux disease without esophagitis; Z88.1 Allergy status to other antibiotic agents; Z91.013 Allergy to seafood

== ENCOUNTER → 2020-09-26 | Outpatient (CLI) | payer OTHER ==
[~2020-09-26] MED LIST changes: +ACET-841 PO
--- NOTE | 2020-09-26 13:43 | REP ---
INDICATION: ABN FINDING OF LUNG COMPARISON: Multiple the latest 08/09/2020 also without contrast TECHNIQUE: Standard helical technique without intravenous contrast administration FINDINGS: The mediastinum and pulmonary surjit are unchanged. There is no mass or adenopathy. There are no pleural or pericardial effusions. The imaged upper abdomen and imaged osseous structures are unchanged. There is a hyperdense left renal cysts which is actually smaller when compared to the 11/05/2017 exam. Evaluation of the lung morales shows resolution of the previously present tracheal densities. Note is again made of an incidental calcified granuloma in the left upper lobe. The lung morales are otherwise clear and stable. IMPRESSION: 1. Resolution of the previously present tracheal densities. 2. No other significant changes compared to the prior exam. <Electronically signed by Arcadio Becerra > 09/26/20 [id number]
== END ==
LOC: M PLAIMG 12:57
PROVIDERS: ATTEND Internal Medicine Pulmonary Disease
DX: R91.8 Other nonspecific abnormal finding of lung field (principal)

== ENCOUNTER → 2020-10-15 | Outpatient (REF) | payer OTHER | LOC: M LAB REF 19:18 | PROVIDERS: ATTEND Physician Assistant | DX: D22.62 Melanocytic nevi of left upper limb, including shoulder (principal) ==

== ENCOUNTER 2020-11-04 07:00 | Emergency (ER) | payer OTHER ==
[~2020-11-04] VITALS: Ht 157.5 cm; Wt 63.0 kg
[2020-11-04] MEDS ORDERED: BUSP1TAB PO (07:18)
[2020-11-04] MEDS ORDERED: PRED10TA2 (07:18)
[2020-11-04 11:55] LABS: RSV AMPLIFICATION NEGATIVE (NEGATIVE)
[2020-11-04] MEDS ORDERED: LIDO2SOL17 SS (12:04)
[2020-11-04] MEDS ORDERED: ONDA4TAB6 PO (12:04)
[2020-11-04 12:15] VITALS: BP 118/76
== END 2020-11-04 12:25 | disposition home or self-care (01) ==
LOC: M ED 07:00
DX: J02.9 Acute pharyngitis, unspecified (principal); Z88.1 Allergy status to other antibiotic agents; Z91.013 Allergy to seafood

== ENCOUNTER → 2020-11-07 | Outpatient (CLI) | payer OTHER ==
[~2020-11-07] MED LIST changes: +BUSP1TAB PO; +LIDO2SOL17 SS; +ONDA4TAB6 PO; +PRED10TA2
--- NOTE | 2020-11-07 13:42 | REP ---
INDICATION: ACUTE UPPER RESPIRATORY INFECTION COMPARISON: 09/05/2020, 05/06/2019 TECHNIQUE: PA and lateral. FINDINGS: The mediastinum and cardiac silhouette are normal. The lung morales are clear and without acute consolidation, effusion, or pneumothorax. Small granuloma along the periphery of the left mid lung zone again noted. The skeletal structures are intact and normal. IMPRESSION: No acute cardiopulmonary process. <Electronically signed by Johan Robles > 11/07/20 2411
== END ==
LOC: M WUC 12:16
PROVIDERS: ATTEND Internal Medicine
DX: J06.9 Acute upper respiratory infection, unspecified (principal)

== ENCOUNTER → 2021-04-30 | Outpatient (CLI) | payer OTHER ==
[2021-04-30 18:00] LABS: ALBUMIN 4.1 GM/DL (3.2-5.2); ALT/SGPT 23 U/L (12-78); BILIRUBIN,TOTAL 0.2 MG/DL (0.2-1.0); BLOOD UREA NITROGEN 11 MG/DL (7-18); CALCIUM LEVEL 9.2 MG/DL (8.5-10.1); CARBON DIOXIDE LEVEL 25 MEQ/L (21-32); CHLORIDE LEVEL 111 MEQ/L (98-107); CHOLESTEROL LEVEL 174 MG/DL (<200); CHOLESTEROL RISK RATIO 2.558 (<5); CREATININE FOR GFR 0.89 MG/DL (0.55-1.30); GLOMERULAR FILTRATION RATE > 60.0 (>58); GLUCOSE, FASTING 90 MG/DL (70-100); HDL CHOLESTEROL 68 MG/DL (>40); LDL CHOLESTEROL 89 MG/DL (<100); NON-HDL-C 106 MG/DL; POTASSIUM SERUM 3.9 MEQ/L (3.5-5.1); SODIUM LEVEL 141 MEQ/L (136-145); TOTAL PROTEIN 7.3 GM/DL (6.4-8.2); TRIGLYCERIDES LEVEL 84 MG/DL (<150)
== END ==
LOC: M LAB 15:55
PROVIDERS: ATTEND Nurse Practitioner Family
DX: Z13.220 Encounter for screening for lipoid disorders (principal); Z72.0 Tobacco use; R07.2 Precordial pain

== ENCOUNTER → 2021-08-05 | Outpatient (CLI) | payer OTHER | LOC: M WHC 15:30 | PROVIDERS: ATTEND Obstetrics & Gynecology | DX: Z12.31 Encounter for screening mammogram for malignant neoplasm of breast (principal) ==

== ENCOUNTER → 2022-08-14 | Outpatient (CLI) | payer OTHER ==
[~2022-08-14] MED LIST changes: +LIDO15SO SS; -LIDO2SOL17 SS
== END ==
LOC: M WHC 15:19
PROVIDERS: ATTEND Obstetrics & Gynecology
DX: Z12.31 Encounter for screening mammogram for malignant neoplasm of breast (principal)

== ENCOUNTER → 2023-09-14 | Outpatient (CLI) | payer OTHER ==
[~2023-09-14] MED LIST changes: -LIDO15SO SS; +LIDO15SO8 SS; +ONDA-282 PO; -ONDA4TAB6 PO
== END ==
LOC: M WHC 15:44
PROVIDERS: ATTEND Obstetrics & Gynecology
DX: Z12.31 Encounter for screening mammogram for malignant neoplasm of breast (principal)

== ENCOUNTER 2024-09-07 13:45 | Emergency (ER) | payer OTHER ==
[~2024-09-07] VITALS: Ht 154.9 cm; Wt 72.7 kg
[~2024-09-07 13:45] MED LIST changes: +BREO1INH3; +LEVA0.6330; +VENL37.598
[2024-09-07 14:35] LABS: BASO # 0.0 10^3/uL (0.0-0.2); BASO % 0.4 % (0.0-1.0); EOS # 0.2 10^3/uL (0.0-0.5); EOS % 2.2 % (0.0-3.0); LYMPH # 1.8 10^3/uL (1.5-5.0); LYMPH % 19.6 % (24.0-44.0); MONO # 0.5 10^3/uL (0.0-0.8); MONO % 5.8 % (2.0-8.0); NEUTROPHILS # 6.4 10^3/uL (1.5-8.5); NEUTROPHILS % 71.7 % (36.0-66.0); PLATELET COUNT, AUTOMATED 267 10^3/uL (150-450)
[2024-09-07 14:59] LABS: CK-MB VALUE MASS 2.2 NG/ML (<3.6); HCG, SERUM QUALITATIVE NEGATIVE (NEGATIVE)
[2024-09-07 15:01] LABS: FREE T4 1.04 NG/DL (0.89-1.76)
[2024-09-07 15:02] LABS: ALT/SGPT 22 U/L (7.0-40); AST/SGOT 23 U/L (<34); CALCIUM LEVEL 9.3 MG/DL (8.5-10.1); CARBON DIOXIDE LEVEL 26 MMOL/L (20-31); CHLORIDE LEVEL 108 MMOL/L (98-107); CREATININE FOR GFR 1.03 MG/DL (0.55-1.30); GLOMERULAR FILTRATION RATE 67.9 (>58); POTASSIUM SERUM 4.0 MMOL/L (3.5-5.1); SODIUM LEVEL 143 MMOL/L (136-145)
[2024-09-07 15:04] LABS: CPK CREATINE PHOSPHOKINASE 63 U/L (34-145); MB/CK RELATIVE INDEX 3.49 (< OR =4)
[2024-09-07 15:12] LABS: INR 0.97
[2024-09-07 15:54] VITALS: TEMP 97.9
[2024-09-07 16:12] LABS: CK-MB VALUE MASS 1.9 NG/ML (<3.6)
[2024-09-07 16:13] LABS: CPK CREATINE PHOSPHOKINASE 49 U/L (34-145); MB/CK RELATIVE INDEX 3.87 (< OR =4)
[2024-09-07] MEDS: LEVALBUTEROL 1.25 MG 0.5ML CONCENTRATE NEB NEB ONE (17:18)
[2024-09-07 18:16] VITALS: BP 125/59; O2SAT 96
== END 2024-09-07 18:24 | disposition home or self-care (01) ==
LOC: M ED 13:45
DX: R07.9 Chest pain, unspecified (principal); J45.909 Unspecified asthma, uncomplicated; F17.200 Nicotine dependence, unspecified, uncomplicated; Z91.013 Allergy to seafood; Z88.8 Allergy status to other drugs, medicaments and biological substances; Z79.52 Long term (current) use of systemic steroids; Z79.1 Long term (current) use of non-steroidal anti-inflammatories (NSAID); Z79.899 Other long term (current) drug therapy

== ENCOUNTER → 2024-09-18 | Outpatient (CLI) | payer OTHER | LOC: M WHC 15:07 | PROVIDERS: ATTEND Obstetrics & Gynecology | DX: Z12.31 Encounter for screening mammogram for malignant neoplasm of breast (principal); R92.333 Mammographic heterogeneous density, bilateral breasts; R92.8 Other abnormal and inconclusive findings on diagnostic imaging of breast ==

== ENCOUNTER → 2024-09-27 | Outpatient (CLI) | payer OTHER | LOC: M WHC 12:50 | PROVIDERS: ATTEND Obstetrics & Gynecology | DX: R92.8 Other abnormal and inconclusive findings on diagnostic imaging of breast (principal); R92.331 Mammographic heterogeneous density, right breast | CPT/HCPCS: 77065; G0279 ==